=== PATIENT | female | born 1990 | race Caucasian/White ===

== ENCOUNTER 2025-01-11 10:57 | Emergency (ER) | payer MEDICAID, SELFPAY ==
[2025-01-11] VITALS (16 sets, daily range): BP systolic 88–119; BP diastolic 63–104; PULSE 91–123; RESP 15–22; TEMP 36.6–37.4; O2SAT 97–100; BMI 19.5
[2025-01-11 11:44] LABS: Hematocrit 12.0 % (37-47); Mean Corp Hgb Conc 33.3 g/dL (32-36); Mean Corpuscular Volume 94.5 fL (81-99); Mean Platelet Vol. 11.2 fl (6.2-12.0); POSITIVE COUNT YES; RBC Distribution Width CV 15.9 % (11.6-14.6); RBC Distribution Width SD 54.8 fl (35.1-43.9); Red Blood Count 1.27 M/mm3 (4.2-5.4); White Blood Count 3.4 K/mm3 (4.4-11.0)
[2025-01-11 11:53] LABS: Hemoglobin 4.0 g/dL (12.0-15.0); Platelet Count 15 K/mm3 (150-450); Scan Indicated on CBC? Y/N YES- FLAGS NOTED
--- NOTE | 2025-01-11 11:54 | EX.ED.DYSGE1 ---
HPI History of Present Illness Chief Complaint: Abn Labs Detail of Chief Complaint: Hemoglobin 4.4 platelet count 14,000 Informant: patient Onset/Context/Timing Onset: Yesterday (Blood work yesterday at facility) Context: - (Unknown) Timing: Continuous Quality: Anemia and thrombocytopenia Location: Hematologic, due to chemo for cervical cancer Current Severity: Mild Maximum Severity: Moderate (Dyspnea on exertion) Worsened by: Activity Relieved by: Nothing Associated Symptoms Associated Symptoms: Dyspnea on exertion Narrative Narrative: Patient is a 34-year-old woman. She receives her cancer treatment through . She had blood work yesterday prior to chemo. She is scheduled for chemo tomorrow. Her hemoglobin was 4.4 and her platelet count was 14,000. She denies bleeding of her gums, hematuria, black or maroon stool. She denies bruising easily. She has not noted any red dots on her lower extremity. She denies fever, chills night sweats. She denies any upper respiratory tract infectious symptoms. She denies cardiac symptoms. Her only respiratory symptom is dyspnea on exertion. Prior similar symptoms: Yes (Patient has required transfusions between treatments.) Recent Illness/Hospitalization: Yes PFSH PFS Medical History Anxiety Depression GERD (gastroesophageal reflux disease) Non-smoker Home Medications ?Medication ?Instructions ?Recorded ?Last Taken ?Type dexamethasone 4 mg tablet mg PO 01/11/25 Unknown History oxycodone 5 mg capsule 5 mg PO Q6H PRN PRN severe pain 01/11/25 Unknown History potassium chloride 20 mEq oral 20 meq PO BID #30 ea 01/11/25 Unknown Rx packet Allergy/AdvReac Type Severity Reaction Status Date / Time No Known Allergies Allergy Verified 01/11/25 11:01 Social History Smoking Status: Never smoker ROS ROS ED Constitutional Constitutional ED: Denies chills, fever(s), subjective or sweats Eyes Eyes: Denies blurry vision or change in vision Cardiovascular Cardiovascular: Denies chest pain, orthopnea, palpitations, paroxysmal nocturnal dyspnea or racing heartbeat Respiratory/Chest Respiratory/Chest: Reports dyspnea on exertion; Denies cough, dyspnea, orthopnea or paroxysmal nocturnal dyspnea Gastrointestinal Gastrointestinal: Denies abdominal pain, melena or vomiting Genitourinary Genitourinary ED: Denies hematuria Neurologic Neurologic: Denies weakness Hematologic/Lymphatic Hematologic/Lymphatic: Denies easy bruising EXAM Physical Exam Const Vital Signs: 01/11/25 10:58 01/11/25 11:51 01/11/25 13:47 Temperature 98.5 F 98.7 F Temperature Source Oral Oral Pulse Rate 123 H 108 H Respiratory Rate 16 18 Respiratory Effort Normal Short of Breath Respiratory Pattern Normal Blood Pressure 119/104 H 95/75 Blood Pressure Mean 109 81 Blood Pressure Source Blood Pressure Position Blood Pressure Location Pulse Ox 100 99 Oxygen Delivery Method Room Air 01/11/25 14:38 01/11/25 14:52 01/11/25 14:53 Temperature 99.1 F 98.6 F 99.4 F H Temperature Source Oral Oral Oral Pulse Rate 108 H 107 H 107 H Respiratory Rate 20 H 20 H 20 H Respiratory Effort Respiratory Pattern Blood Pressure 92/74 94/74 88/63 L Blood Pressure Mean 80 80 71 Blood Pressure Source Monitor Monitor Monitor Blood Pressure Position Semi-Fowlers Semi-Fowlers Right Lateral Blood Pressure Location Left Arm Right Arm Pulse Ox Oxygen Delivery Method Room Air Room Air Room Air Positive well nourished and well developed Constitutional Narrative: Patient is tachycardic with a rate of 123. Patient is very pale. General Appearance ED: well developed and pallor HEENT HEENT Narrative: Has atraumatic, cephalic. Ears normal. Nares patent. She has piercings of her nose Eyes PERRL and EOMs intact bilaterally General Eye ED: Yes pale conjunctiva; Negative for scleral icterus Neck no lymphadenopathy and no JVD Resp normal respiratory effort and clear to auscultation bilaterally Cardio regular rhythm, S1 normal heart sound, S2 normal heart sound and no murmurs Rate: tachycardic GI normal to inspection, nondistended, normoactive bowel sounds, non-tender, non-distended and no masses; Negative for hepatosplenomegaly Extremity Extremity Narrative: Patient has a few petechiae lower EXTR. Neuro oriented x3 and CN's II-XII intact bilaterally Sensorium / Orientation: alert Psych mental status grossly normal Skin no rashes or lesions noted and no wounds General Skin Exam: pallor; Negative for jaundice MDM MDM MDM Narrative Medical decision making narrative: Clinically patient has a hemoglobin less than 5 since there is no erythema crease of the palm. Will type and cross for 3 units of blood and order platelets. Lab Data Attestation: I reviewed the patient's lab results. Lab results narrative: I was informed that her hemoglobin is 4. White count is 3.4. Platelet count was low as well. When calcium was corrected for hypoalbuminemia calcium was 7.8 which is slightly below lower end of normal. Will obtain an ionized calcium. Labs: Laboratory Results - last 24 hr 01/11/25 01/11/25 11:30 13:14 WBC 3.4 L RBC 1.27 L Hgb 4.0 L* Hct 12.0 L MCV 94.5 MCH 31.5 MCHC 33.3 RDW Std Deviation 54.8 H RDW Coeff of Sally 15.9 H Plt Count 15 L* MPV 11.2 Differential Comment COMMENT Sodium 135 Potassium 3.0 L Chloride 99 Carbon Dioxide 24.1 Anion Gap 12 BUN 8 Creatinine 0.93 Estim Creat Clear Calc 66.64 Est GFR (MDRD) Non-Af 82 BUN/Creatinine Ratio 9.0 L Glucose 86 Calcium 5.8 L* Ionized Calcium 0.90 L Total Bilirubin 0.23 AST 14 ALT < 5 Alkaline Phosphatase 84 Total Protein 5.3 L Albumin 2.5 L Globulin 2.8 Albumin/Globulin Ratio 0.9 Blood Type O POSITIVE Antibody Screen NEGATIVE Crossmatch See Detail Patient states she has a history of hypokalemia and hypocalcemia. Patient was treated with p.o. potassium. Ionized calcium is still pending at as of 1559. Treatment and Re-Evaluation :: The afternoon physician was made aware of patient. He should only have to intervene if patient has a transfusion reaction. Discharge Plan Triage Chief Complaint: Abn Labs ED Provider: Nathen Piper Dx/Rx/DC Orders Clinical Impression: Symptomatic anemia, Signs and symptoms of anemia, Thrombocytopenia, Petechiae, Hx of cervical cancer, Sinus tachycardia seen on secured entrance monitor, Hypocalcemia, Hypokalemia Instructions: Blood Transfusion Adult Dc Prescriptions: New potassium chloride 20 mEq packet 20 meq PO BID Qty: 30 1RF No Action dexamethasone 4 mg tablet PO oxycodone 5 mg capsule 5 mg PO Q6H PRN PRN (Reason: severe pain) Primary Care Provider: Care Physician,No Primary Referrals: Care Physician,No Primary [Primary Care Provider, Medical] Print Language: Tajik Disposition Disposition: Home, Self Care
[2025-01-11 12:36] LABS: AST(SGOT) 14 U/L (<=31); Alanine Aminotransfer ALT/SGPT < 5 U/L (<=34); Albumin, Serum 2.5 g/dL (3.5-5.0); Alkaline Phosphatase 84 U/L (35-104); Anion Gap 12 (5-15); BUN 8 mg/dL (4-19); BUN/Creat Ratio 9.0 RATIO (10-20); Calcium,Total 5.8 mg/dL (7.6-11.0); Carbon Dioxide 24.1 mmol/L (21.0-32.0); Chloride 99 mmol/L (98-108); Estimated Creatinine Clearance 66.64 ml/min (50-250); Globulin 2.8 g/dL (2.2-4.2); Glucose 86 mg/dL (70-99); Potassium 3.0 mmol/L (3.3-5.1)
[2025-01-11] MEDS: Potassium Chloride Oral Tablet 20 MEQ 60 MEQ PO (13:43)
[2025-01-11 14:16] LABS: Ionized Calcium Order TUBE
== END 2025-01-11 19:59 | disposition home or self-care (01) ==
PROVIDERS: Emergency Provider Emergency Medicine; Visit Provider Emergency Medicine
DX: R79.9 Abnormal finding of blood chemistry, unspecified (principal); D64.9 Anemia, unspecified; Z85.41 Personal history of malignant neoplasm of cervix uteri; Z79.899 Other long term (current) drug therapy; R23.3 Spontaneous ecchymoses; R00.0 Tachycardia, unspecified; E83.51 Hypocalcemia; E87.6 Hypokalemia
CPT/HCPCS: 36430; 36591; 80053; 82330; 85027; 86850; 86900; 86901; 86920; 86965; 99283; P9016; P9035; A4216

== ENCOUNTER 2025-02-19 09:07 | Emergency (ER) | payer MEDICAID, SELFPAY ==
[2025-02-19] VITALS (10 sets, daily range): BP systolic 108–115; BP diastolic 70–98; PULSE 105–123; RESP 10–25; TEMP 36.3–37; O2SAT 85–100; BMI 20.5
--- NOTE | 2025-02-19 09:26 | RAD_ITS ---
PROCEDURE: CHEST PA AND LATERAL 02/19/2025 REASON FOR EXAM: WEAKNESS TECHNIQUE: Procedure Code: RADCXR Modality: DX Procedure: CHEST PA AND LATERAL COMPARISON: CT chest abdomen and pelvis without contrast, same day. FINDINGS: There is a large right pleural effusion with almost complete atelectasis of the upper lobe of the right lung. There is a large left pleural effusion, however, there is almost complete aeration of the upper lobe of the left lung. The heart is obscured. The upper abdominal bowel gas pattern is normal. There is a right IJ Port-A-Cath. RAD/Chest PA and Lateral IMPRESSION: Bilateral pleural effusions [id number]. Other findings as noted Reading Location: [id number]
--- NOTE | 2025-02-19 09:26 | EKG12_ITS ---
Test Reason : weakness Blood Pressure : */* mmHG Vent. Rate : 118 BPM Atrial Rate : 118 BPM P-R Int : 136 ms QRS Dur : 78 ms QT Int : 326 ms P-R-T Axes : * 68 80 degrees QTcB Int : 456 ms Sinus tachycardia Low voltage QRS Cannot rule out Inferior infarct , age undetermined Abnormal ECG Confirmed by SONDRA OSPINA, PIERRE ([id number]), proposal editor MIRIAN PAINTING ([id number]) on 02/20/2025 1:07:35 PM Referred By: Confirmed By: PIERRE AMARO MD
--- NOTE | 2025-02-19 09:35 | EX.ED.DYSGE1 ---
HPI History of Present Illness Chief Complaint: Weakness Narrative Narrative: Chief complaint and HPI: 34-year-old female with metastatic ovarian cancer on immunotherapy presents for evaluation of generalized weakness. Associated symptoms are fatigue and exertional shortness of breath. Patient follows with however is looking to switch to our oncology team at [place]. Patient was having similar symptoms several days ago in which she was seen in our emergency department. On chart review, she had pancytopenia with a hemoglobin of 4 and a platelet count of 15. She received 3 units of blood and platelets. Patient states she felt better after the infusions however symptoms have returned. She states she was taking magnesium in which she was having diarrhea for several days. No longer on magnesium and diarrhea stopped. She denies any fever, chills, chest pain, URI symptoms, nausea, vomiting, dysuria. Endorses decreased appetite. Patient finished chemotherapy approximately 5 weeks ago. She receives immunotherapy every 3 weeks. Last immunotherapy was a week ago. Review of systems: See HPI Medications: As listed on the chart Allergies: As listed on the chart PFSH: Per chart Vital signs: As listed on the chart. Reviewed. Physical exam: Gen: A&O x3, NAD, cachectic Head: Normocephalic, atraumatic Eyes: No sclera icterus, conjunctiva clear ENT: Dry mucous membranes, nose piercing Neck: Trachea midline CV: Tachycardic, regular rhythm, no murmurs, no peripheral edema, right port without cellulitis, breast implants bilaterally Resp: Lungs diminished in the bilateral bases, Right lung diminished throughout, no wheezing GI: Abd soft, minimally distended-ascites, non-tender, no r/r/g Musc: Moves all extremities, no deformity Skin: Dry, pale, no petechia Neuro: Alert, oriented, grossly intact, sensation intact Psych: Cooperative, appropriate mood and affect PFSH PFSH Medical History Anxiety Depression GERD (gastroesophageal reflux disease) Non-smoker Home Medications ?Medication ?Instructions ?Recorded ?Last Taken ?Type oxycodone 5 mg capsule 5 mg PO Q6H PRN PRN severe pain 01/11/25 Unknown History lorazepam 0.5 mg tablet 0.5 mg PO Q6H PRN anxiety 02/19/25 02/18/25 History pantoprazole 40 mg tablet,delayed 40 mg PO DAILY 02/19/25 02/18/25 History release prochlorperazine maleate 5 mg 5 mg PO DAILY 02/19/25 02/18/25 History tablet Allergy/AdvReac Type Severity Reaction Status Date / Time No Known Allergies Allergy Verified 01/11/25 11:01 Family History no significant family his Social History Smoking Status: Never smoker EXAM Physical Exam Const Vital Signs: 02/19/25 09:07 02/19/25 09:19 02/19/25 09:25 Temperature 97.7 F L 97.7 F L Temperature Source Oral Oral Pulse Rate 123 H 123 H Respiratory Rate 16 16 Respiratory Effort Short of Breath Blood Pressure 111/96 H 111/96 H Blood Pressure Mean 101 101 Pulse Ox 96 96 Oxygen Delivery Method Room Air Room Air Oxygen Flow Rate (L/min) 02/19/25 10:12 02/19/25 11:00 02/19/25 11:08 Temperature 97.7 F L 97.7 F L Temperature Source Oral Oral Pulse Rate 115 H 108 H Respiratory Rate 20 H 20 H Respiratory Effort Blood Pressure 110/98 H 108/97 H Blood Pressure Mean 102 100 Pulse Ox 92 85 100 Oxygen Delivery Method Room Air Room Air Nasal Cannula Oxygen Flow Rate (L/min) 2 02/19/25 12:00 02/19/25 12:00 Temperature 98 F Temperature Source Oral Pulse Rate 109 H Respiratory Rate 10 L Respiratory Effort Blood Pressure 115/77 Blood Pressure Mean 89 Pulse Ox 98 Oxygen Delivery Method Nasal Cannula Nasal Cannula Oxygen Flow Rate (L/min) MDM MDM MDM Narrative Medical decision making narrative: 34-year-old female with metastatic cervical cancer on immunotherapy presents for evaluation of generalized weakness. Associated symptoms are fatigue and exertional shortness of breath. Patient follows with however is looking to switch to our oncology team at [facility]. Patient was having similar symptoms several days ago in which she was seen in our emergency department. On chart review, she had pancytopenia with a hemoglobin of 4 and a platelet count of 15. She received 3 units of blood and platelets. Patient states she felt better after the infusions however symptoms have returned. Patient finished chemotherapy approximately 5 weeks ago. She receives immunotherapy every 3 weeks. Last immunotherapy was a week ago. On presentation, patient no acute distress. She is cachectic, pale, tachycardic but afebrile with normal blood pressure. Differential diagnosis includes but is not limited to anemia, thrombocytopenia, electrolyte abnormality, dehydration, UTI, pneumonia, effusion. NS bolus ordered with laboratory workup. CBC with pancytopenia. Patient has a history of this on previous labs. Leukocytosis of 3.2, hemoglobin 7.9, platelets 13. Previous platelets were 15 on 01/11 in which she received platelets. Per guidelines stable oncology patient's should receive transfusion if platelets are less than 10. However will reach out to oncology. Patient has no petechiae or bleeding reported. INR 1.3. CMP shows dehydration with hyponatremia at 130, BUN of 60, creatinine of 3.74, anion gap of 17. Patient has an GARTH as previous creatinine on 01/11 was normal. Patient receiving fluids. Her ionized calcium is low at 1.04. IV calcium gluconate ordered. Her magnesium is low at 1.4. IV magnesium sulfate ordered. No transaminitis. Patient has malnutrition with an albumin of 2.1. Her alkaline phosphatase is elevated at 211, likely secondary to her cancer. Chest x-ray was personally viewed interpreted by me, ED physician. Patient has a large pleural effusion on the right. Smaller one on the left. Awaiting radiology read. Will obtain CT chest without contrast as I cannot use contrast given patient's GARTH. Patient and family were updated of the results thus far. Patient's mother states that the patient has also had some drainage out of her old right nephrostomy tube site. I did personally evaluate the area. Skin around this area is edematous with drainage from the nephrostomy site, slightly cloudy. Site is mildly tender to palpation without erythema. Will add on CT abdomen pelvis, again not able to use contrast given GARTH. Patient not endorsing any abdominal pain. I spoke with Dr. Subramanian with oncology. Patient can be admitted to [facility] per oncology, they will see her. Platelet transfusion is not necessary unless platelets are less than 10 however procedure is needed we will need to transfuse platelets. CT abdomen pelvis shows large bilateral pleural effusions with almost complete compression atelectasis of the right lung in the lower lobe of the left lung. Large amount of ascites. Edema of the subcutaneous/mediastinal/mesenteric and retroperitoneal soft tissues. Pelvic mass of uncertain etiology. Bilateral hydronephrosis. Stephen catheter will be placed. Given that I cannot rule out infection for a cause of her hydronephrosis as she has not been able to urinate with mildly cloudy drainage from the nephrostomy sites will give prophylactic Zosyn and vancomycin. Once Stephen is placed will obtain UA and urine culture. Patient now requiring 2 L nasal cannula, suspect it is secondary to bilateral effusion however will add on blood cultures and lactic acid. Patient will warrant admission. Hospitalist roger. Given that we do not have urology on-call, recommend patient be transferred. Spoke with Dr. Asif. Patient was updated of the results and the plan thus far. She is willing to go to . States she usually goes to [place]. Her oncologist is Dr. Vásquez. Will reach out to . I spoke with oncologist Dr. Baldwin who accepted admission to the oncology floor. Patient will be transferred once able. Lactic acid unremarkable. UA pending at this time. Family had multiple questions about if the patient should be transferred to [facility]. We spoke about this. They will stick with at this time. EKG: Interpreted by me/EM physician: EKG shows sinus tachycardia without any acute ischemic changes. Heart rate 118. Impression: 1. Acute hypoxic respiratory failure requiring oxygen 2. Bilateral pleural effusion 3. GARTH with dehydration 4. Chronic pancytopenia 5. Abdominal ascites 6. Bilateral nephrolithiasis 7. Pelvic mass Lab Data Labs: Laboratory Results - last 24 hr 02/19/25 02/19/25 09:40 09:53 WBC 3.2 L RBC 2.92 L Hgb 7.9 L Hct 23.7 L MCV 81.2 MCH 27.1 MCHC 33.3 RDW Std Deviation 50.5 H RDW Coeff of Sally 17.3 H Plt Count 13 L* MPV 10.7 Immature Gran % (Auto) 0.900 Neut % (Auto) 74.8 H Lymph % (Auto) 13.1 L Pepin % (Auto) 10.3 H Eos % (Auto) 0.3 Baso % (Auto) 0.6 Absolute Neuts (auto) 2.4 Absolute Lymphs (auto) 0.42 L Nucleated RBC % 0 Diff Path Review May foll Platelet Estimate MKD DEC PT 16.5 H INR 1.3 APTT 66.4 H Sodium 130 L Potassium 3.9 Chloride 92 L Carbon Dioxide 20.5 L Anion Gap 17 H BUN 60 H Creatinine 3.74 H Estim Creat Clear Calc 17.37 L Est GFR (MDRD) Non-Af 15 L BUN/Creatinine Ratio 16.1 Glucose 99 Calcium 7.6 Ionized Calcium 1.04 L Magnesium 1.4 L Total Bilirubin 0.59 AST 19 ALT < 5 Alkaline Phosphatase 211 H Total Protein 5.4 L Albumin 2.1 L Globulin 3.3 Albumin/Globulin Ratio 0.6 L Radiography Diagnostic Testing: Clinical Impression(s) from Imaging Studies Chest X-Ray 02/19/25 09:26 IMPRESSION: Bilateral pleural effusions [id number]. Other findings as noted Reading Location: [facility] Chest/Abdomen/Pelvis CT 02/19/25 10:13 IMPRESSION: 1. Large bilateral pleural effusions with almost complete compressive atelectasis of the right lung in the lower lobe of the left lung. 2. Large amount of ascites. 3. Edema of the subcutaneous, mediastinal, mesenteric and retroperitoneal soft tissues. 4. Pelvic mass of uncertain etiology. 5. Bilateral hydronephrosis. Reading Location: [facility] Discharge Plan Triage Chief Complaint: Weakness ED Provider: Alejandro Gann Dx/Rx/DC Orders Prescriptions: No Action oxycodone 5 mg capsule 5 mg PO Q6H PRN PRN (Reason: severe pain) prochlorperazine maleate 5 mg tablet 5 mg PO DAILY lorazepam 0.5 mg tablet 0.5 mg PO Q6H PRN (Reason: anxiety) pantoprazole 40 mg tablet,delayed release (DR/EC) 40 mg PO DAILY Primary Care Provider: Care Physician,No Primary Referrals: Care Physician,No Primary [Primary Care Provider, Medical] Print Language: Yemeni
[2025-02-19 09:48] LABS: Hematocrit 23.7 % (37-47); Hemoglobin 7.9 g/dL (12.0-15.0); Immature Granulocytes Count 0.030 X10^3/uL (0.0-0.0); Mean Corp Hgb Conc 33.3 g/dL (32-36); Mean Corpuscular Volume 81.2 fL (81-99); Mean Platelet Vol. 10.7 fl (6.2-12.0); NRBC Flagged by Analyzer 0 % (0-5); POSITIVE COUNT YES; POSITIVE DIFFERENTIAL YES; POSITIVE MORPHOLOGY YES; RBC Distribution Width CV 17.3 % (11.6-14.6); RBC Distribution Width SD 50.5 fl (35.1-43.9); Red Blood Count 2.92 M/mm3 (4.2-5.4); White Blood Count 3.2 K/mm3 (4.4-11.0)
[2025-02-19] MEDS: 0.9% Normal Saline (1000mL) 1,000 ML 1000 ML IV (09:50)
[2025-02-19 09:51] LABS: Platelet Count 13 K/mm3 (150-450)
[2025-02-19 09:54] LABS: Prothrombin Time (Protime)PT. 16.5 SECONDS (11.7-14.9)
[2025-02-19 09:55] LABS: Partial Thromboplast Time 66.4 Seconds (24.1-36.2)
[2025-02-19 10:04] LABS: AST(SGOT) 19 U/L (<=31); Alanine Aminotransfer ALT/SGPT < 5 U/L (<=34); Albumin, Serum 2.1 g/dL (3.5-5.0); Alkaline Phosphatase 211 U/L (35-104); Anion Gap 17 (5-15); BUN 60 mg/dL (4-19); BUN/Creat Ratio 16.1 RATIO (10-20); Calcium,Total 7.6 mg/dL (7.6-11.0); Carbon Dioxide 20.5 mmol/L (21.0-32.0); Chloride 92 mmol/L (98-108); Estimated Creatinine Clearance 17.37 ml/min (50-250); Globulin 3.3 g/dL (2.2-4.2); Glucose 99 mg/dL (70-99); Magnesium 1.4 mg/dL (1.5-2.2); Potassium 3.9 mmol/L (3.3-5.1)
--- NOTE | 2025-02-19 10:13 | CT_ITS ---
PROCEDURE: CT CHEST, ABD, PELVIS WO CONT 02/19/2025 REASON FOR EXAM: HISTORY OF METASTATIC OVARIAN CANCER, SOB TECHNIQUE: Chest, abdomen and pelvis CT without intravenous contrast. Coronal and Sagittal reconstruction series were provided. One or more dose reduction techniques were used (e.g., Automated exposure control, adjustment of the mA and/or kV according to patient size, use of iterative reconstruction technique. RADIATION DOSE SUMMARY: CTDlvol: 18.49 mGy DLP: 878.80 mGycm COMPARISON: None FINDINGS: CT CHEST: Lower neck:Thyroid gland is normal. There is no supraclavicular lymphadenopathy. Mediastinum:Mediastinum is primarily of soft tissue density subtle lymphadenopathy not excluded. Heart and Aorta:The heart size is normal. There is a small pericardial effusion. There is no significant calcific vascular disease of the coronary arteries or thoracic aorta evident. Esophagus:Normal. Chest wall:There is significant edema of the soft tissues of the chest wall.. There are bilateral breast prostheses. There is no significant axillary lymphadenopathy. There is a chemotherapy port in the right upper chest wall with the tip in the superior vena cava. There are no significant bony abnormalities of the chest. Lungs, airways and pleura: There is a large right pleural effusion with almost complete compressive atelectasis of the right lung. There is a large left pleural effusion with significant compressive atelectasis of the lower lobe of the left lung. The upper lobe of the left lung is predominantly aerated. CT ABDOMEN / PELVIS: Noncontrast technique limits evaluation of the abdominal and pelvic viscera. Liver: Normal size. No mass. Gallbladder: Diffuse wall thickening. Spleen: Normal size. Pancreas: Normal size without evidence of mass surrounding inflammation or ductal dilation. Adrenals: There is enlargement of both adrenal glands of indeterminate etiology. Kidneys: There is bilateral hydronephrosis. Bladder: The bladder wall is thickened. Reproductive Organs: There is a mass in the area of the uterus. Bowel: The stomach is distended. There is no bowel obstruction. Appendix: Not identified. Lymph nodes: There is no significant adenopathy identified. Vasculature: No significant calcific vascular disease. Peritoneum / Retroperitoneum: There is a large amount of ascites. There is diffuse subcutaneous and mesenteric and retroperitoneal edema. Bones: Normal. CT/CT Chest, Abd, Pelvis WO Cont IMPRESSION: 1. Large bilateral pleural effusions with almost complete compressive atelecta sis of the right lung in the lower lobe of the left lung. 2. Large amount of ascites. 3. Edema of the subcutaneous, mediastinal, mesenteric and retroperitoneal soft tissues. 4. Pelvic mass of uncertain etiology. 5. Bilateral hydronephrosis. Reading Location: [id number]
[2025-02-19 10:14] LABS: Differential Indicated SCAN CRITERIA MET
--- OUTSIDE RECORDS SUMMARY | 2025-02-19 10:19 | XMS RPT_ITS | CCD ---
Author Organization [facility] Care Team Providers Care Neon Light Installer Name Role Phone Thalia OSPINA, MS, Charan Huizar Unavailable [phone] PHYSICIAN, NONE Primary Care Physician Unavailab Bel Rawls Unavailable Unav ailable Generic Provider , No Assigned Pcp Primary Car e Provider Unavailable David Arango MD Unavailable [phone] Nathen Piper Attending Unavailable Care Physician, No Primary Primary Care Unava iljeferson Piper MD, Dr. Sena Attending Physician [phone] Dr. Nathen Piper MD Emergency Department Physician Care Physician, No Primary Primary Care Physicia n Unavailable CARMINA DUMONT Attending Unavailable THALIA, CHARAN A Referring Unavailable CARMINA DUMONT Attending Unavailable PHYSICIAN, NONE Primary Care Unavailable SEJAL HURST DO Attending Unavailable [facility] Unavailable Unavaila MARGARITA Jeter Attending Unavailable JENKINS, CHARAN A Attending Unavailable JENKINS, CHARAN A Referring Unavailable JENKINS, CHARAN A Referring Unavailable JENKINS, CHARAN A Referring Unavailable JENKINS, CHARAN A Referring Unavailable JENKINS, CHARAN A Attending Unavailable JENKINS, CHARAN A Referring Unavailable JENKINS, CHARAN A Attending Unavailable JENKINS, CHARAN A Referring Unavailable JENKINS, CHARAN A Referring Unavailable JENKINS, CHARAN A Referring Unavailable Medications Current Medications Medication Drug Class(es) Dates Sig (Normalized) Sig (Original) dexamethasone 4 mg oral tablet (6 sources) Corticosteroid Start: 01-26-2025 take 2 tablets by mouth once daily dexAMETHasone (Decadron) 4 mg tablet Indications: Malignant neoplasm of exocervix (Multi) Take 2 tablets (8 mg) by mouth once daily. Start the day after chemotherapy. 6 tablet 1 01/26/2025 Active Start: 01-11-2025 Start: 12-29-2024 take 2 tablets by mo ut once daily dexAMETHasone (Decadron) 4 mg tablet Indications: Malignant neoplasm of exocervix (Multi) Take 2 tablets (8 mg) by mouth once daily for 3 days. Start the day after chemotherapy. 6 tablet 1 12/29/2024 Active LORazepam 0.5 mg oral tablet (6 sources) Benzodiazepine Start: 01-26-2025 take 1 tablet by mouth every six hours for anxiety LORazepam (Ativan) 0.5 mg tablet Indications: Malignant neoplasm of exocervix (Multi) Take 1 tablet (0.5 mg) by mouth every 6 hours if needed for anxiety. 30 tablet 5 01/26/2025 Active take 1 tablet by kay every six hours as needed LORazepam (Ativan) 0.5 mg tablet Take 1 tablet (0.5 mg) by mouth every 6 hours if needed for anxiety. Active oxyCODONE hydrochloride 5 mg oral capsule (8 sources) Opioid Agonist Start: 01-03-2025 End: 01-19-2025 take 1 capsule by mouth every six hours for pain oxyCODONE (Oxy-IR) 5 mg immediate release capsule Indications: Malignant neoplasm of exocervix (Multi) , Cancer related pain Take 1 capsule (5 mg) by mouth every 6 hours if needed for severe pain (7 - 10). 60 capsule 01/19/2025 Active oxyCODONE (Oxy-I R) 5 mg immediate release capsule Take by mouth. Active pantoprazole 40 mg delayed release oral tablet (6 sources) Proton Pump Inhibitor Start: 01-11-2025 take 1 tablet by mouth once daily before mealtime pantoprazole (ProtoNix) 40 mg EC tablet Indications: Gastroesophageal reflux disease, unspecified whether esophagitis present Take 1 tablet (40 mg) by mouth once daily in the morning. Take before meals. Do not crush, chew, or split. 90 tablet 3 01/11/2025 Active take 1 tablet by kay once daily before mealtime pantoprazole (ProtoNix) 40 mg EC tablet Take 1 tablet (40 mg) by mouth once daily in the morning. Take before meals. Do not crush, chew, or split. Active prochlorperazine 5 mg oral tablet (2 sources) Phenothiazine Start: 01-26-2025 End: 02-02-2025 take 1 tablet by mouth every six hours for nausea prochlorperazine (Compazine) 5 mg tablet Indications: Malignant neoplasm of exocervix (Multi) Take 1 tablet (5 mg) by mouth every 6 hours if needed for nausea or vomiting for up to 7 days. 30 tablet 01/26/2025 02/02/2025 Active sulfamethoxazole 800 mg / trimethoprim 160 mg oral tablet (7 sources) Dihydrofolate Reductase Inhibitor Antibacterial, Sulfonamide Antimicrobial Start: 01-17-2025 End: 01-30-2025 take 1 tablet by mouth twice daily sulfamethoxazole-tri methoprim (Bactrim DS) 800-160 mg tablet Indications: Hydronephrosis due to obstruction of ureter Take 1 tablet by mouth 2 times a day. 3 tablet 01/30/2025 Active Completed/Discontinued Medications Medication Drug Class(es) Dates Sig (Normalized) Sig (Original) acetaminophen 325 mg oral tablet (1 source) Start: 02-03-2025 End: 02-03-2025 take 650 mg by mouth once as needed for pain 650 mg, oral, Once, On Thu02/03/25 at 1125, For 1 dose, If ordered PRN for pain, nurse is permitted to administer this medication for higher pain scores based on patient preference? Yes diphenhydrAMINE (1 source) Histamine-1 Receptor Antagonist Start: 02-03-2025 End: 02-03-2025 25 mg, intravenous, Once, On Thu02/03/25 at 1125, For 1 dose, If giving IV push, max rate of 25 mg/min. heparin (1 source) Unfractionated Heparin, Anti-coagulant Start: 02-03-2025 End: 02-03-2025 500 Units (5 mL), intravenous, Once, On Thu02/03/25 at 1905, For 1 dose 50 ml magnesium sulfate 40 mg/ml injection (1 source) Start: 02-03-2025 End: 02-03-2025 2 g, intravenous, at 25 mL/hr, Administer over 2 Hours, Once, On Thu02/03/25 at 1335, For 1 dose 100 ml potassium chloride 0.2 meq/ml injection (3 sources) Start: 02-03-2025 End: 11-07-2025 take 20 mEq intravenously every two hours 20 mEq, intravenous, at 50 mL/hr, Administer over 2 Hours, Every 2 hours, First dose on Thu02/03/25 at 1205, For 2 doses, Total dose is 40 mEq via peripheral line. Start: 02-03-2025 End: 02-03-2025 take 1 [oz_av] by mouth once 40 mEq, oral, Once, On i 02/03/25 at 1205, For 1 dose, Dissolve each packet in 4 ounces of water = 5 mEq per 1 oz fluid. Start: 01-11-2025 take 20 mEq by mouth twice moiz ly Problems Active Problems Problem Classification Problem Date Documented Date Episodic/Chronic Cancer of cervix (13 sources) Malignant neoplasm of exocervix; Translations: [Malignant neoplasm of exocervix] Onset: 12-22-2024 12-22-2024 Chronic Cancer of cervix (1 source) History of malignant neoplasm of cervix; Translations: [Personal history of malignant neoplasm of cervix uteri] 01-19-2025 Episodic Cardiac dysrhythmias (1 source) ECG: sinus tachycardia; Translations: [Tachycardia, unspecified] 01-19-2025 Episodic Coagulation and hemorrhagic disorders (12 sources) Thrombocytopenic disorder; Translations: [Thrombocytopenia, unspecified] Onset: 01-19-2025 01-19-2025 Chronic Coagulation and hemorrhagic disorders (1 source) Petechiae; Translations: [Spontaneous ecchymoses] 01-19-2025 Episodic Deficiency and other anemia (8 sources) Anemia in neoplastic disease; Translations: [Anemia in neoplastic disease] Onset: 01-19-2025 01-19-2025 Chronic Deficiency and other anemia (1 source) Anemia in neoplastic disease; Translations: [Anemia in neoplastic disease] Onset: 01-19-2025 Chronic Deficiency and other anemia (2 sources) Anemia; Translations: [Anemia, unspecified] 01-19-2025 Episodic Deficiency and other anemia (2 sources) Anemia, unspecified; Translations: [Anemia, unspecified] Onset: 02-03-2025 Episodic E Codes: Adverse effects of medical drugs (2 sources) Adverse effect of antineoplastic and immunosuppressive drugs, initial encounter; Translations: [Adverse effect of antineoplastic and immunosuppressive drugs, initial encounter] Onset: 12-22-2024 Episodic Fluid and electrolyte disorders (1 source) Hypokalemia; Translations: [Hypokalemia] 01-19-2025 Episodic Maintenance chemotherapy; radiotherapy (9 sources) Patient encounter status; Translations: [Encounter for antineoplastic chemotherapy] Onset: 01-19-2025 01-19-2025 Chronic Nausea and vomiting (10 sources) Nausea; Translations: [Nausea] Onset: 12-22-2024 12-22-2024 Episodic Other diseases of kidney and ureters (9 sources) Hydronephrosis; Translations: [Other hydronephrosis] Onset: 12-22-2024 12-22-2024 Episodic Other diseases of kidney and ureters (4 sources) Hydronephrosis with ureteral stricture, not elsewhere classified; Translations: [Hydronephrosis] Onset: 01-17-2025 01-17-2025 Episodic Other diseases of kidney and ureters (1 source) Other hydronephrosis; Translations: [Other hydronephrosis] Onset: 12-22-2024 Episodic Other nervous system disorders (8 sources) Neuropathy caused by chemical substance; Translations: [Drug-induced polyneuropathy] Onset: 12-22-2024 12-22-2024 Chronic Other nervous system disorders (1 source) Pain due to neoplastic disease; Translations: [Neoplasm related pain (acute) (chronic)] 01-19-2025 Chronic Other nervous system disorders (2 sources) Drug-induced polyneuropathy; 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)] Onset: 12-22-2024 Chronic Other nervous system disorders (2 sources) Neoplasm related pain (acute) (chronic); Translations: [Neoplasm related pain (acute) (chronic)] Onset: 01-19-2025 Chronic Other nutritional; endocrine; and metabolic disorders (1 source) Hypocalcemia; Translations: [Hypocalcemia] 01-19-2025 Chronic Other screening for suspected conditions (not mental disorders or infectious disease) (2 sources) Abnormal finding of blood chemistry, unspecified; Translations: [Abnormal finding of blood chemistry, unspecified] Onset: 01-11-2025 Episodic Residual codes; unclassified (1 source) Sign; Translations: [Other general symptoms and signs] 01-19-2025 Episodic Residual codes; unclassified (1 source) Procedure and treatment not carried out due to patient leaving prior to being seen by health care provider; Translations: [Procedure and treatment not carried out due to patient leaving prior to being seen by health care provider] Onset: 01-11-2025 Episodic Unclassified (3 sources) Hydronephrosis due to obstruction of ureter 01-23-2025 Past or Other Problems Problem Classification Problem Date Documented Da te Episodic/Chronic Mood disorders (5 sources) Mood disorders Onset: 01-17-2025 01-17-2025 Unclassified (5 sources) Onset: 01-17-2025 01-17-2025 Results Test Name Value Interpretation Reference Range Facility Proteinon 02-08-2025 Protein (24H U) [Mass/Vol] 231 mg/dL High - [facility] Comment on above: Performed By: #### 2 1482-5 #### RADU Sánchez ([id number]) XUAN Alex ([id number]) [facility] ([id number]) [address] [facility] ([facility]) [id number] [place] [address] 76851 Protein (24H U) [Mass/Vol]on 02-08-2025 Collection duration (Unsp spec) <23 Normal [facility] Comment on above: Performed By: #### 2 1482-5 #### RADU Sánchez ([id number]) XUAN Alex ([id number]) [facility] ([id number]) [address] [facility] ([facility]) [id number] [place] [address] 33588 Creatinine (24H U) [Mass/Time] Normal [facility] Comment on above: Result Comment: Mary ection period significantly less than 24 hours. Unable to calculate. Performed By: #### 2 1482-5 #### RADU Sánchez ([id number]) XUAN Alex ([id number]) [facility] ([id number]) [address] [place] [id number] [facility] ([facility]) [address] [place] [address] 56963 Creatinine (U) [Mass/Vol] 70.4 mg/dL Normal 20.0-320.0 [facility] Comment on above: Performed By: #### 2 1482-5 #### RADU Sánchez ([id number]) XUAN Alex ([id number]) [facility] ([id number]) [address] [place] [address] [facility] ([facility]) [address] [place] [address] 45540 Specimen volume Unsp time (U) 200 mL Normal [facility] Comment on above: Performed By: #### 2 1482-5 #### RADU Sánchez ([id number]) XUAN Alex ([id number]) [facility] ([id number]) [address] [place] [address] [facility] ([facility]) [address] [place], [place] [address] TOTAL PROTEIN (MG/24HR) IN 24 HOUR URINE Normal [facility] Comment on above: Result Comment: Mary ection period significantly less than 24 hours. Unable to calculate. Performed By: #### 2 1482-5 #### RADU Sánchez ([id number]) XUAN Alex ([id number]) [facility] ([id number]) [address] [place] [address] [facility] ([facility]) [address] [place], [place] [address] CBC W Auto Differential pane l (Bld)on 02-07-2025 Basophils (Bld) [#/Vol] 0.00 x10*3/uL Normal 0.00-0.10 [facility] Comment on above: Performed By: #### 2 1482-5 #### RADU Sánchez ([id number]) XUAN Alex ([id number]) [facility] ([id number]) [address] [place] [address] [facility] ([facility]) [address] [place], [place] [address] Basophils/100 WBC (Bld) 0.0 % Normal 0.0-2.0 [facility] Comment on above: Performed By: #### 2 1482-5 #### RADU Sánchez ([id number]) XUAN Alex ([id number]) [facility] ([id number]) [address] [place] [address] [facility] ([facility]) [address] [place] [address] 03725 Eosinophils (Bld) [#/Vol] 0.00 x10*3/uL Normal 0.00-0.70 [facility] Comment on above: Performed By: #### 2 1482-5 #### RADU Sánchez ([id number]) XUAN Alex ([id number]) [facility] ([id number]) [address] [place] [address] [facility] ([facility]) [address] [place] [address] 99670 Eosinophils/100 WBC (Bld) 0.0 % Normal 0.0-6.0 [facility] Comment on above: Performed By: #### 2 1482-5 #### RADU Sánchez ([id number]) XUAN Alex ([id number]) [facility] ([id number]) [address] [place], [place] [address] [facility] ([facility]) [address] [place] [address] 73858 Erythrocyte distribution width (RBC) [Ratio] 17.3 % High 11.5-14.5 [facility] Comment on above: Performed By: #### 2 1482-5 #### RADU Sánchez ([id number]) XUAN Alex ([id number]) [facility] ([id number]) [address] [place] [address] [facility] ([facility]) [address] [place] [address] 16102 Hematocrit (Bld) [Volume fraction] 28.9 % Low 36.0-46.0 [facility] Comment on above: Performed By: #### 2 1482-5 #### RADU Sánchez ([id number]) XUAN Alex ([id number]) [facility] ([id number]) [address] [place] [address] [facility] ([facility]) [address] [place] [address] 96718 Hemoglobin (Bld) [Mass/Vol] 9.8 g/dL Low 12.0-16.0 [facility] Comment on above: Performed By: #### 2 1482-5 #### RADU Sánchez ([id number]) XUAN Alex ([id number]) [facility] ([id number]) [address] [place] [address] [facility] ([facility]) [id number] [place] [address] 20371 Immature granulocytes (Bld) [#/Vol] 0.01 x10*3/uL Normal 0.00-0.70 [facility] Comment on above: Performed By: #### 2 1482-5 #### RADU Sánchez ([id number]) XUAN Alex ([id number]) [facility] ([id number]) [address] [place] [address] [facility] ([facility]) [address] [place] [address] 87920 Immature granulocytes/100 WBC (Bld) 0.3 % Normal 0.0-0.9 [facility] Comment on above: Result Comment: Misty ture Granulocyte Count (IG) includes promyelocytes, myelocytes and metamyelocytes but does not include bands. Percent differential counts (%) should be interpreted in the context of the absolute cell counts (cells/UL). Performed By: #### 2 1482-5 #### RADU Sánchez ([id number]) XUAN Alex ([id number]) [facility] ([id number]) [address] [place] [address] [facility] ([facility]) [id number] [place] [address] 86203 Lymphocytes (Bld) [#/Vol] 0.57 x10*3/uL Low 1.20-4.80 [facility] Comment on above: Performed By: #### 2 1482-5 #### RADU Sánchez ([id number]) XUAN Alex ([id number]) [facility] ([id number]) [address] [place] [address] [facility] ([facility]) [id number] [place] [address] 11322 Lymphocytes/100 WBC (Bld) 15.3 % Normal 13.0-44.0 [facility] Comment on above: Performed By: #### 2 1482-5 #### RADU Sánchez ([id number]) XUAN Alex ([id number]) [facility] ([id number]) [address] [place] [address] [facility] ([facility]) [id number] [place] [address] 75137 MCH (RBC) [Entitic mass] 28.2 pg Normal 26.0-34.0 [facility] Comment on above: Performed By: #### 2 1482-5 #### RADU Sánchez ([id number]) XUAN Alex ([id number]) [facility] ([id number]) [address] [place], [place] [address] [facility] ([facility]) [address] [place] [address] 80140 MCHC (RBC) [Mass/Vol] 33.9 g/dL Normal 32.0-36.0 [facility] Comment on above: Performed By: #### 2 1482-5 #### RADU Sánchez ([id number]) XUAN Alex ([id number]) [facility] ([id number]) [address] [place], [place] [address] [facility] ([facility]) [id number] [place] [address] 19455 MCV (RBC) [Entitic vol] 83 fL Normal 80-100 [facility] Comment on above: Performed By: #### 2 1482-5 #### RADU Sánchez ([id number]) XUAN Alex ([id number]) [facility] ([id number]) [address] [place] [address] [facility] ([facility]) [address] [place] [address] 21539 Monocytes (Bld) [#/Vol] 0.21 x10*3/uL Normal 0.10-1.00 [facility] Comment on above: Performed By: #### 2 1482-5 #### RADU Sánchez ([id number]) XUAN AVELARER L ([id number]) [facility] ([id number]) [address] [place] [address] [facility] ([facility]) [address] [place] [address] Monocytes/100 WBC (Bld) 5.6 % Normal 2.0-10.0 [facility] Comment on above: Performed By: #### 2 1482-5 #### RADU Sánchez ([id number]) XUAN AVELARER L ([id number]) [facility] ([id number]) [address] [place] [address] [facility] ([facility]) [id number] [place] [address] 94308 Neutrophils (Bld) [#/Vol] 2.93 x10*3/uL Normal 1.20-7.70 [facility] Comment on above: Result Comment: Perc ent differential counts (%) should be interpreted in the context of the absolute cell counts (cells/uL). Performed By: #### 2 1482-5 #### RADU Sánchez ([id number]) XUAN Alex ([id number]) [facility] ([id number]) [address] [place] [address] [facility] ([facility]) [address] [place] [address] Neutrophils/100 WBC (Bld) 78.8 % Normal 40.0-80.0 [facility] Comment on above: Performed By: #### 2 1482-5 #### RADU Sánchez ([id number]) XUAN NORIEGAMOTZER L ([id number]) [facility] ([id number]) [address] [place] [address] [facility] ([facility]) [id number] [place] [address] 15779 Platelets (Bld) [#/Vol] 4 x10*3/uL Critically low 150-450 [facility] Comment on above: Performed By: #### 2 1482-5 #### RADU Sánchez ([id number]) XUAN Alex ([id number]) [facility] ([id number]) [address] [facility] ([facility]) [address] [place], [place] [address] RBC (Bld) [#/Vol] 3.48 x10*6/uL Low 4.00-5.20 [facility] Comment on above: Performed By: #### 2 1482-5 #### RADU Sánchez ([id number]) XUAN Alxe ([id number]) [facility] ([id number]) [address] [facility] ([facility]) [address] [place], [place] [address] WBC (Bld) [#/Vol] 3.7 x10*3/uL Low 4.4-11.3 [facility] Comment on above: Performed By: #### 2 1482-5 #### RADU Sánchez ([id number]) XUAN Alex ([id number]) [facility] ([id number]) [address] [place] [address] [facility] ([facility]) [address] [place] [address] Cancer Ag 125on 02-07-2025 Cancer Ag 125 Qn 124.9 [arb'U]/mL High 0.0-30.2 [facility] Comment on above: Order Comment: CA 12 5 testing is performed by chemiluminescent immunoassay using the [employer]. Values obtained with different analytic methods cannot be used interchangeably.Serum CA 125 measurement is intended for use as an aid in monitoring patients previously treated for ovarian cancer. This assay is not intended for screening or diagnosis of cancer in the general population. The results must not be used as the sole means for clinical diagnosis or patient management decisions. Performed By: #### 2 1482-5 #### RADU Sánchez ([id number]) XUAN Alex ([id number]) [facility] ([id number]) [address] [place] [address] [facility] ([facility]) [address] [place] [address] Comprehensive metabolic 2000 panelon 02-07-2025 Albumin BCP dye [Mass/Vol] 2.6 g/dL Low 3.4-5.0 [facility] Comment on above: Performed By: #### 2 1482-5 #### RADU Sánchez ([id number]) XUAN Alex ([id number]) [facility] ([id number]) [address] [facility] ([facility]) [address] [place], [place] [address] ALP [Catalytic activity/Vol] 113 U/L High 33-110 [facility] Comment on above: Performed By: #### 2 1482-5 #### RADU Sánchez ([id number]) XUAN Alex ([id number]) [facility] ([id number]) [address] [facility] ([facility]) [address] [place], [place] [address] ALT With P-5'-P [Catalytic activity/Vol] 3 U/L Low 7-45 [facility] Comment on above: Result Comment: Jaquelin ents treated with Sulfasalazine may generate falsely decreased results for ALT. Performed By: #### 2 1482-5 #### RADU Sánchez ([id number]) XUAN Alex ([id number]) [facility] ([id number]) [address] [place] [address] [facility] ([facility]) [address] [place] [address] 69865 Anion gap [Moles/Vol] 16 mmol/L Normal 10-20 [facility] Comment on above: Performed By: #### 2 1482-5 #### RADU Sánchez ([id number]) XUAN Alex ([id number]) [facility] ([id number]) [address] [place] [id number] [facility] ([facility]) [id number] [place] [address] 20277 AST With P-5'-P [Catalytic activity/Vol] 9 U/L Normal 9-39 [facility] Comment on above: Performed By: #### 2 1482-5 #### RADU Sánchez ([id number]) XUAN Alex ([id number]) [facility] ([id number]) [address] [place] [address] [facility] ([facility]) [id number] [place] [address] 65582 Bilirubin [Mass/Vol] 0.6 mg/dL Normal 0.0-1.2 [facility] Comment on above: Performed By: #### 2 1482-5 #### RADU Sánchez ([id number]) XUAN Alex ([id number]) [facility] ([id number]) [address] [place] [address] [facility] ([facility]) [address] [place] [address] 79319 Calcium [Mass/Vol] 7.1 mg/dL Low 8.6-10.3 [facility] Comment on above: Performed By: #### 2 1482-5 #### RADU Sánchez ([id number]) XUAN Alex ([id number]) [facility] ([id number]) [address] [place] [address] [facility] ([facility]) [address] [place] [address] 57343 Chloride [Moles/Vol] 95 mmol/L Low 98-107 [facility] Comment on above: Performed By: #### 2 1482-5 #### RADU Sánchez ([id number]) XUAN Alex ([id number]) [facility] ([id number]) [address] [place] [address] [facility] ([facility]) [id number] [place] [address] 57660 CO2 [Moles/Vol] 26 mmol/L Normal 21-32 [facility] Comment on above: Result Comment: Bica rbonate results may be falsely elevated when Lactate Dehydrogenase (LDH) concentrations exceed 2,000 U/L due to a temporary reagent manufacturing issue. If significantly elevated LDH levels are suspected, interpret bicarbonate results with caution, correlate with the patient's clinical status, and consider confirming CO2 values using a blood gas analyzer. Performed By: #### 2 1482-5 #### RADU Sánchez ([id number]) XUAN Alex ([id number]) [facility] ([id number]) [address] [place] [address] [facility] ([facility]) [address] [place] [address] Creatinine [Mass/Vol] 1.50 mg/dL High 0.50-1.05 [facility] Comment on above: Performed By: #### 2 1482-5 #### RADU Sánchez ([id number]) XUAN Alex ([id number]) [facility] ([id number]) [address] [place] [phone] [facility] ([facility]) [id number] [place] [address] Glomerular filtration rate 46 mL/min/1.73m*2 Low >60 [facility] Comment on above: Result Comment: Calc ulations of estimated GFR are performed using the 2020 CKD-EPI Study Refit equation without the race variable for the IDMS-Traceable creatinine methods. https://jasn.asnjournals.org/content/early/ASN.2020 682547 Performed By: #### 2 1482-5 #### RADU Sánchez ([id number]) XUAN Alex ([id number]) [facility] ([id number]) [address] [place] [phone] [facility] ([facility]) [address] [place] [address] Glucose [Mass/Vol] 91 mg/dL Normal 74-99 [facility] Comment on above: Performed By: #### 2 1482-5 #### RADU Sánchez ([id number]) XUAN Alex ([id number]) [facility] ([id number]) [address] [place] [address] [facility] ([facility]) [address] [place] [address] Potassium [Moles/Vol] 3.3 mmol/L Low 3.5-5.3 [facility] Comment on above: Performed By: #### 2 1482-5 #### RADU Sánchez ([id number]) XUAN Alex ([id number]) [facility] ([id number]) [address] [place] [address] [facility] ([facility]) [address] [place] [address] Protein [Mass/Vol] 5.7 g/dL Low 6.4-8.2 [facility] Comment on above: Performed By: #### 2 1482-5 #### RADU Sánchez ([id number]) XUAN Alex ([id number]) [facility] ([id number]) [address] [place] [phone] [facility] ([facility]) [address] [place] [address] Sodium [Moles/Vol] 134 mmol/L Low 136-145 [facility] Comment on above: Performed By: #### 2 1482-5 #### RADU Sánchez ([id number]) XUAN Alex ([id number]) [facility] ([id number]) [address] [place] [address] [facility] ([facility]) [address] [place] [address] Urea nitrogen [Mass/Vol] 32 mg/dL High 6-23 [facility] Comment on above: Performed By: #### 2 1482-5 #### RADU Sánchez ([id number]) XUAN Alex ([id number]) [facility] ([id number]) [address] [place] [address] [facility] ([facility]) [address] [place] [address] Magnesiumon 02-07-2025 Magnesium [Mass/Vol] 1.02 mg/dL Low 1.60-2.40 [facility] Comment on above: Performed By: #### 2 1482-5 #### RADU Sánchez ([id number]) XUAN Alex ([id number]) [facility] ([id number]) [address] [facility] ([facility]) [address] [place] [address] Blood type and Indirect anti body screen panel (Bld)on 02-03-2025 ABO group Nom (Bld) O [facility] Blood group antibody screen Ql Negative [facility] D Ag Ql (Bld) Positive [facility] ABO group Nom (Bld) O [facility] Comment on above: Performed By: #### 3 4532-2 #### KHADIJAH FARLEY ([id number]) [facility] [address] [place] [address] Blood group antibody screen Ql Negative [facility] Comment on above: Performed By: #### 3 4532-2 #### KHADIJAH FARLEY ([id number]) [facility] [address] [place] [address] D Ag Ql (Bld) Positive [facility] Comment on above: Performed By: #### 3 4532-2 #### KHADIJAH FARLEY ([id number]) [facility] ([facility]) [address] [place] [address] ABO group Nom (Bld) O [facility] Comment on above: Order Comment: Speci men for compatibility testing requires full first and last name, MRN, , date, time of collection, and lay out former/payment collector's signature on tube(s) or it will be rejected. Please collect 1 lavender top-KEDTA OR 1 pink top-KEDTA and sign, date and time with the patient's full first and last name, MRN and . Performed By: #### 2 1482-5 #### RAUD Sánchez ([id number]) XUAN Alex ([id number]) [facility] ([id number]) [address] [place] [address] LAB ([facility]) [address] [place], [place] [id number] Blood group antibody screen Ql Negative [facility] Comment on above: Order Comment: Speci men for compatibility testing requires full first and last name, MRN, , date, time of collection, and lay out former/payment collector's signature on tube(s) or it will be rejected. Please collect 1 lavender top-KEDTA OR 1 pink top-KEDTA and sign, date and time with the patient's full first and last name, MRN and . Performed By: #### 2 1482-5 #### RADU Sánchez ([id number]) XUAN Alex ([id number]) [facility] ([id number]) [address] [facility] ([facility]) [address] [place] [address] D Ag Ql (Bld) Positive [facility] Comment on above: Order Comment: Speci men for compatibility testing requires full first and last name, MRN, , date, time of collection, and lay out former/payment collector's signature on tube(s) or it will be rejected. Please collect 1 lavender top-KEDTA OR 1 pink top-KEDTA and sign, date and time with the patient's full first and last name, MRN and . Performed By: #### 2 1482-5 #### RADU Sánchez ([id number]) XUAN Alex ([id number]) [facility] ([id number]) [address] [facility] ([facility]) [address] [place] [address] CBC W Auto Differential pane l (Bld)on 02-03-2025 Basophils (Bld) [#/Vol] 0.00 x10*3/uL Normal 0.00-0.10 [facility] Comment on above: Result Comment: Auto mated WBC differential has been confirmed by manual smear review Performed By: #### 5 7021-8 #### RADU Sánchez ([id number]) [facility] ([id number]) [address] [place] [address] Basophils/100 WBC (Bld) 0.0 % Normal 0.0-2.0 [facility] Comment on above: Performed By: #### 5 7021-8 #### RADU Sánchez ([id number]) [facility] ([id number]) [address] [place] [address] Eosinophils (Bld) [#/Vol] 0.00 x10*3/uL Normal 0.00-0.70 [facility] Comment on above: Performed By: #### 5 7021-8 #### RADU Sánchez ([id number]) [facility] ([id number]) [address] [place] [address] Eosinophils/100 WBC (Bld) 0.0 % Normal 0.0-6.0 [facility] Comment on above: Performed By: #### 5 7021-8 #### RADU Sánchez ([id number]) [facility] ([id number]) [address] [place] [address] Erythrocyte distribution width (RBC) [Ratio] 14.8 % High 11.5-14.5 [facility] Comment on above: Performed By: #### 5 7021-8 #### RADU Sánchez ([id number]) [facility] ([id number]) [address] [place], [place] [address] Hematocrit (Bld) [Volume fraction] 15.7 % Low 36.0-46.0 [facility] Comment on above: Performed By: #### 5 7021-8 #### RADU Sánchez ([id number]) [facility] ([id number]) [address] [place] [address] Hemoglobin (Bld) [Mass/Vol] 5.3 g/dL Critically low 12.0-16.0 [facility] Comment on above: Performed By: #### 5 7021-8 #### RADU Sánchez ([id number]) [facility] ([id number]) [address] [place] [address] Immature granulocytes (Bld) [#/Vol] 0.02 x10*3/uL Normal 0.00-0.70 [facility] Comment on above: Performed By: #### 5 7021-8 #### RADU Sánchez ([id number]) [facility] ([id number]) [address] [place] [address] Immature granulocytes/100 WBC (Bld) 0.5 % Normal 0.0-0.9 [facility] Comment on above: Result Comment: Misty ture Granulocyte Count (IG) includes promyelocytes, myelocytes and metamyelocytes but does not include bands. Percent differential counts (%) should be interpreted in the context of the absolute cell counts (cells/UL). Performed By: #### 5 7021-8 #### RADU Sánchez ([id number]) [facility] ([id number]) [address] [place] [address] Lymphocytes (Bld) [#/Vol] 0.79 x10*3/uL Low 1.20-4.80 [facility] Comment on above: Performed By: #### 5 7021-8 #### RADU Sánchez ([id number]) [facility] ([id number]) [address] [place] [address] Lymphocytes/100 WBC (Bld) 20.4 % Normal 13.0-44.0 [facility] Comment on above: Performed By: #### 5 7021-8 #### RADU Sánchez ([id number]) [facility] ([id number]) [address] [place] [address] MCH (RBC) [Entitic mass] 30.6 pg Normal 26.0-34.0 [facility] Comment on above: Performed By: #### 5 7021-8 #### RADU Sánchez ([id number]) [facility] ([id number]) [address] [place] [address] MCHC (RBC) [Mass/Vol] 33.8 g/dL Normal 32.0-36.0 [facility] Comment on above: Performed By: #### 5 7021-8 #### RDAU Sánchez ([id number]) [facility] ([id number]) [address] [place] [address] MCV (RBC) [Entitic vol] 91 fL Normal 80-100 [facility] Comment on above: Performed By: #### 5 7021-8 #### RADU Sánchez ([id number]) [facility] ([id number]) [address] [place] [address] Monocytes (Bld) [#/Vol] 0.33 x10*3/uL Normal 0.10-1.00 [facility] Comment on above: Performed By: #### 5 7021-8 #### RADU Sánchez ([id number]) [facility] ([id number]) [address] [place] [address] Monocytes/100 WBC (Bld) 8.5 % Normal 2.0-10.0 [facility] Comment on above: Performed By: #### 5 7021-8 #### RADU Sánchez ([id number]) [facility] ([id number]) [address] [place] [address] Neutrophils (Bld) [#/Vol] 2.73 x10*3/uL Normal 1.20-7.70 [facility] Comment on above: Result Comment: Perc ent differential counts (%) should be interpreted in the context of the absolute cell counts (cells/uL). Performed By: #### 5 7021-8 #### RADU Sánchez ([id number]) [facility] ([id number]) [address] [place] [address] Neutrophils/100 WBC (Bld) 70.6 % Normal 40.0-80.0 [facility] Comment on above: Performed By: #### 5 7021-8 #### RADU Sánchez ([id number]) [facility] ([id number]) [address] [place] [address] Platelets (Bld) [#/Vol] 1 x10*3/uL Critically low 150-450 [facility] Comment on above: Result Comment: Plat elet count verified by smear review Performed By: #### 5 7021-8 #### RADU Sánchez ([id number]) [facility] ([id number]) [address] [place] [address] RBC (Bld) [#/Vol] 1.73 x10*6/uL Low 4.00-5.20 [facility] Comment on above: Performed By: #### 5 7021-8 #### RADU Sánchez ([id number]) [facility] ([id number]) [address] [place] [address] WBC (Bld) [#/Vol] 3.9 x10*3/uL Low 4.4-11.3 [facility] Comment on above: Performed By: #### 5 7021-8 #### RADU Sánchez ([id number]) [facility] ([id number]) [address] [place] [address] CBC panel Auto (Bld)on 02-03 Erythrocyte distribution width (RBC) [Ratio] 16.1 % High 11.5 - 14.5 % [facility] Hematocrit (Bld) [Volume fraction] 25.6 % Low 36.0 - 46.0 % [facility] Hemoglobin (Bld) [Mass/Vol] 8.5 g/dL Low 12.0 - 16.0 g/dL [facility] Interpretation and review of laboratory results Abnormal [facility] MCH (RBC) [Entitic mass] 27.2 pg 26.0 - 34.0 pg [facility] MCHC (RBC) [Mass/Vol] 33.2 g/dL 32.0 - 36.0 g/dL [facility] MCV (RBC) [Entitic vol] 82 fL 80 - 100 fL [facility] Nucleated RBC/100 WBC (Bld) [Ratio] 0.0 % [facility] Platelets (Bld) [#/Vol] 22 10*3/uL Critically low [facility] Comment on above: Platelet count verif ied by smear review Previous result verified on 02/03/2025 1035 on specimen/case [id number] called with component PLT for procedure CBC and Auto Differential with value 1 x10*3/uL. RBC (Bld) [#/Vol] 3.13 10*6/uL [facility] WBC (Bld) [#/Vol] 3.4 10*3/uL [facility] Erythrocyte distribution width (RBC) [Ratio] 16.1 % High 11.5-14.5 [facility] Comment on above: Order Comment: Pleas e obtain after transfusion Performed By: #### 5 8410-2 #### KHADIJAH FARLEY ([id number]) [facility] ([facility]) [address] [place] [address] Hematocrit (Bld) [Volume fraction] 25.6 % Low 36.0-46.0 [facility] Comment on above: Order Comment: Pleas e obtain after transfusion Performed By: #### 5 8410-2 #### KHADIJAH FARLEY ([id number]) [facility] ([facility]) [address] [place] [address] Hemoglobin (Bld) [Mass/Vol] 8.5 g/dL Low 12.0-16.0 [facility] Comment on above: Order Comment: Pleas e obtain after transfusion Performed By: #### 5 8410-2 #### KHADIJAH FARLEY ([id number]) [facility] ([facility]) [address] [place] [address] MCH (RBC) [Entitic mass] 27.2 pg Normal 26.0-34.0 [facility] Comment on above: Order Comment: Pleas e obtain after transfusion Performed By: #### 5 8410-2 #### KHADIJAH FARLEY ([id number]) [facility] ([facility]) [address] [place] [address] MCHC (RBC) [Mass/Vol] 33.2 g/dL Normal 32.0-36.0 [facility] Comment on above: Order Comment: Pleas e obtain after transfusion Performed By: #### 5 8410-2 #### KHADIJAH FARLEY ([id number]) [facility] ([facility]) [address] [place] [address] MCV (RBC) [Entitic vol] 82 fL Normal 80-100 U [facility] Comment on above: Order Comment: Pleas e obtain after transfusion Performed By: #### 5 8410-2 #### KHADIJAH FARLEY ([id number]) [facility] ([facility]) [address] [place] [address] Nucleated RBC/100 WBC (Bld) [Ratio] 0.0 /100 WBCs Normal 0.0-0.0 [facility] Comment on above: Order Comment: Pleas e obtain after transfusion Performed By: #### 5 8410-2 #### KHADIJAH FARLEY ([id number]) [facility] ([facility]) [address] [place] [address] Platelets (Bld) [#/Vol] 22 x10*3/uL Critically low 150-450 [facility] Comment on above: Order Comment: Pleas e obtain after transfusion Result Comment: Plat elet count verified by smear review Previous result verified on 02/03/2025 1035 on specimen/case [id number] called with component PLT for procedure CBC and Auto Differential with value 1 x10*3/uL. Performed By: #### 5 8410-2 #### KHADIJAH FARLEY ([id number]) [facility] ([facility]) [address] [place] [address] RBC (Bld) [#/Vol] 3.13 x10*6/uL Low 4.00-5.20 [facility] Comment on above: Order Comment: Pleas e obtain after transfusion Performed By: #### 5 8410-2 #### KHADIJAH FARLEY ([id number]) [facility] ([facility]) [address] [place] [address] WBC (Bld) [#/Vol] 3.4 x10*3/uL Low 4.4-11.3 [facility] Comment on above: Order Comment: Pleas e obtain after transfusion Performed By: #### 5 8410-2 #### KHADIJAH FARLEY ([id number]) [facility] ([facility] [address] [place] [address] Comprehensive metabolic 2000 panelon 02-03-2025 Albumin BCP dye [Mass/Vol] 2.5 g/dL Low 3.4 - 5.0 g/dL [facility] ALP [Catalytic activity/Vol] 115 U/L High 33 - 110 U/L [facility] ALT With P-5'-P [Catalytic activity/Vol] 3 U/L Low 7 - 45 U/L [facility] Comment on above: Patients treated wit h Sulfasalazine may generate falsely decreased results for ALT. Anion gap [Moles/Vol] 15 mmol/L 10 - 2 0 mmol/L [facility] AST With P-5'-P [Catalytic activity/Vol] 11 U/L 9 - 39 U/L [facility] Bilirubin [Mass/Vol] 0.7 mg/dL 0.0 - 1 .2 mg/dL [facility] Calcium [Mass/Vol] 5.9 mg/dL Low 8.6 - 10. 3 mg/dL [facility] Chloride [Moles/Vol] 92 mmol/L Low 98 - 10 7 mmol/L [facility] CO2 [Moles/Vol] 25 mmol/L 21 - 32 mmol/L [facility] Comment on above: Bicarbonate results may be falsely elevated when Lactate Dehydrogenase (LDH) concentrations exceed 2,000 U/L due to a temporary reagent manufacturing issue. If significantly elevated LDH levels are suspected, interpret bicarbonate results with caution, correlate with the patient s clinical status, and consider confirming CO2 values using a blood gas analyzer. Creatinine [Mass/Vol] 1.32 mg/dL High 0.50 - 1.05 mg/dL [facility] GFR/1.73 sq M.predicted among non-blacks MDRD (S/P/Bld) [Vol rate/Area] 54 mL/min/{1.73_m2} Low - PINF [facility] Comment on above: Calculations of gabby mated GFR are performed using the 2020 CKD-EPI Study Refit equation without the race variable for the IDMS-Traceable creatinine methods. https://jasn.asnjournals.org/content//ASN.2020 192371 Glucose [Mass/Vol] 106 mg/dL High 74 - 99 mg/dL [facility] Interpretation and review of laboratory results Abnormal [facility] Potassium [Moles/Vol] 2.6 mmol/L Critically low 3.5 - 5.3 mmol/L [facility] Protein [Mass/Vol] 5.3 g/dL Low 6.4 - 8.2 g/dL [facility] Sodium [Moles/Vol] 129 mmol/L Low 136 - 145 mmol/L [facility] Urea nitrogen [Mass/Vol] 19 mg/dL 6 - 23 mg/dL [facility] Albumin BCP dye [Mass/Vol] 2.5 g/dL Low 3.4-5.0 [facility] Comment on above: Performed By: #### 2 4323-8 #### KHADIJAH FARLEY ([id number]) [facility] ([facility]) [address] [place] [address] ALP [Catalytic activity/Vol] 115 U/L High 33-110 [facility] Comment on above: Performed By: #### 2 3-8 #### KHADIJAH FARLEY ([id number]) [facility] ([facility]) [address] [place] [address] ALT With P-5'-P [Catalytic activity/Vol] 3 U/L Low 7-45 [facility] Comment on above: Result Comment: Jaquelin ents treated with Sulfasalazine may generate falsely decreased results for ALT. Performed By: #### 2 4323-8 #### KHADIJAH FARLEY ([id number]) [facility] ([facility]) [address] [place] [address] Anion gap [Moles/Vol] 15 mmol/L Normal 10-20 [facility] Comment on above: Performed By: #### 2 3-8 #### KHADIJAH FARLEY ([id number]) [facility] ([facility]) [address] [place] [id number] AST With P-5'-P [Catalytic activity/Vol] 11 U/L Normal 9-39 [facility] Comment on above: Performed By: #### 2 4323-8 #### KHADIJAH FARLEY ([id number]) [facility] ([facility]) [address] [place] [address] Bilirubin [Mass/Vol] 0.7 mg/dL Normal 0.0-1.2 [facility] Comment on above: Performed By: #### 2 4323-8 #### KHADIJAH FARLEY ([id number]) [facility] ([facility]) [address] [place] [address] Calcium [Mass/Vol] 5.9 mg/dL Low 8.6-10.3 [facility] Comment on above: Performed By: #### 2 4323-8 #### KHADIJAH FARLEY ([id number]) [facility] ([facility]) [address] [place] [address] Chloride [Moles/Vol] 92 mmol/L Low 98-107 [facility] Comment on above: Performed By: #### 2 4323-8 #### KHADIJAH FARLEY ([id number]) [facility] ([facility]) [address] [place] [address] CO2 [Moles/Vol] 25 mmol/L Normal 21-32 [facility] Comment on above: Result Comment: Bica rbonate results may be falsely elevated when Lactate Dehydrogenase (LDH) concentrations exceed 2,000 U/L due to a temporary reagent manufacturing issue. If significantly elevated LDH levels are suspected, interpret bicarbonate results with caution, correlate with the patient's clinical status, and consider confirming CO2 values using a blood gas analyzer. Performed By: #### 2 4323-8 #### KHADIJAH FARLEY ([id number]) [facility] ([facility]) [address] [place] [address] Creatinine [Mass/Vol] 1.32 mg/dL High 0.50-1.05 [facility] Comment on above: Performed By: #### 2 4323-8 #### KHADIJAH FARLEY ([id number]) [facility] ([facility]) [address] [place] [address] Glomerular filtration rate 54 mL/min/1.73m*2 Low >60 [facility] Comment on above: Result Comment: Calc ulations of estimated GFR are performed using the 2021 CKD-EPI Study Refit equation without the race variable for the IDMS-Traceable creatinine methods. https://jasn.asnjournals.org/content//ASN.2020 940635 Performed By: #### 2 4323-8 #### KHADIJAH FARLEY ([id number]) [facility] ([facility]) [address] [place] [address] Glucose [Mass/Vol] 106 mg/dL High 74-99 [facility] Comment on above: Performed By: #### 2 4323-8 #### KHADIJAH FARLEY ([id number]) [facility] ([facility]) [address] [place] [address] Potassium [Moles/Vol] 2.6 mmol/L Critically low 3.5-5.3 [facility] Comment on above: Performed By: #### 2 4323-8 #### KHADIJAH FARLEY ([id number]) [facility] ([facility]) [address] [place] [address] Protein [Mass/Vol] 5.3 g/dL Low 6.4-8.2 [facility] Comment on above: Performed By: #### 2 4323-8 #### KHADIJAH FARLEY ([id number]) [facility] ([facility]) [address] [place] [address] Sodium [Moles/Vol] 129 mmol/L Low 136-145 [facility] Comment on above: Performed By: #### 2 4323-8 #### KHADIJAH FARLEY ([id number]) [facility] ([facility]) [address] [place] [address] Urea nitrogen [Mass/Vol] 19 mg/dL Normal 6-23 [facility] Comment on above: Performed By: #### 2 4323-8 #### KHADIJAH FARLEY ([id number]) [facility] ([facility]) [address] [place] [address] ECG 12-LEADon 02-03-2025 ECG 12-LEAD Ventricular Rate 128 Atrial Rate 128 P-R Interval 130 QRS Duration 80 Q-T Interval 276 QTC Calculation(Bazett) 402 P Alma 33 R Alma 50 T Alma -81 QRS Count 22 Q Onset 218 P Onset 163 P Offset 198 T Offset 356 QTC Fredericia 355 Diagnosis Sinus tachycardia Cannot rule out Anterior infarct , age undetermined Abnormal ECG No previous ECGs available See ED provider note for full interpretation and clinical correlation Confirmed by Isabelle Lemus ([id number]) on 02/07/2025 10:59:32 AM Normal [facility] LDH Lactate to pyruvate reac tion [Catalytic activity/Vol]on 02-03-2025 Interpretation and review of laboratory results Normal [facility] LDH, Lactate dehydrogenaseon 02-03-2025 LDH Lactate to pyruvate reaction [Catalytic activity/Vol] 143 U/L 84 - 246 U/L [facility] Lactate dehydrogenaseon LDH Lactate to pyruvate reaction [Catalytic activity/Vol] 143 U/L Normal 84-246 [facility] Comment on above: Performed By: #### 1 4804-9 #### XUAN Alex ([id number]) [facility] HOSPITAL [facility] ([facility]) [id number] [place] [address] Magnesiumon 02-03-2025 Magnesium [Mass/Vol] 0.77 mg/dL Low 1.60 - 2.40 mg/dL [facility] Magnesium [Mass/Vol] 0.77 mg/dL Low 1.60-2.40 [facility] Comment on above: Performed By: #### 1 9123-9 #### KHADIJAH FARLEY ([id number]) [facility] ([facility] [address] [place] [address] Magnesium [Mass/Vol]on 02-03 Interpretation and review of laboratory results Abnormal [facility] PT and aPTT panel Coag (PPP) on 02-03-2025 aPTT Coag (PPP) [Time] 28 s [facility] INR Coag (PPP) [Relative time] 1.2 {INR} High 0.9 - 1.1 [facility] Interpretation and review of laboratory results Abnormal [facility] PT Coag (PPP) [Time] 13.7 s High [facility] The APTT is no longer used for monitoring Unfractionated Heparin Therapy. For monitoring Heparin Therapy, use the Heparin Assay. [facility] aPTT Coag (PPP) [Time] 28 s Normal 26-36 Un [facility] Comment on above: Order Comment: The A PTT is no longer used for monitoring Unfractionated Heparin Therapy. For monitoring Heparin Therapy, use the Heparin Assay. Performed By: #### 3 4529-8 #### KHADIJAH FARLEY ([id number]) [facility] ([facility] [address] [phone] INR Coag (PPP) [Relative time] 1.2 High 0.9-1.1 [facility] Comment on above: Order Comment: The A PTT is no longer used for monitoring Unfractionated Heparin Therapy. For monitoring Heparin Therapy, use the Heparin Assay. Performed By: #### 3 4529-8 #### KHADIJAH FARLEY ([id number]) [facility] ([facility] [address] [place] [address] PT Coag (PPP) [Time] 13.7 s High 9.8-12.4 [facility] Comment on above: Order Comment: The A PTT is no longer used for monitoring Unfractionated Heparin Therapy. For monitoring Heparin Therapy, use the Heparin Assay. Performed By: #### 3 4529-8 #### KHADIJAH FARLEY ([id number]) [facility] ([facility] [address] [phone] Pathologist review Pathologi st comment (Bld) [Interp]on 02-03-2025 PATH REVIEW-CBC DIFFERENTIAL Normocytic anemia and thrombocytopenia. Possible treatment effect. Normal [facility] Comment on above: Result Comment: Elec tronically signed out by Malissa Mandujano MD on 02/06/25 at 1:52 PM. By the signature on this report, the individual or group listed as making the Final Interpretation/Diagnosis certifies that they have reviewed this case. Performed By: #### 2 1482-5 #### RADU Sánchez ([id number]) XUAN Alex ([id number]) [facility] ([id number]) [address] [place] [address] [facility] ([facility]) [address] [place] [address] Phosphateon 02-03-2025 Phosphate [Mass/Vol] 4.2 mg/dL Normal 2.5-4.9 [facility] Comment on above: Performed By: #### 2 777-1 #### KHADIJAH MARTINE ([id number]) [facility] ([facility] [address] [place] [address] Phosphate [Mass/Vol]on 02-03 Interpretation and review of laboratory results Normal [facility] Phosphoruson 02-03-2025 Phosphate [Mass/Vol] 4.2 mg/dL 2.5 - 4 .9 mg/dL [facility] Prepare Platelets: 1 Units, Irradiatedon 02-03-2025 Blood Expiration Date 02/04/2025 11:59:00 PM EST [facility] Dispense Status TR [facility] PRODUCT BLOOD TYPE 6200 [facility] PRODUCT CODE [id number] [facility] Unit ABO A [facility] Unit Number [id number] [facility] Unit RH Positive [facility] UNIT VOLUME 303 [facility] Prepare RBC: 1 Unitson 02-03 Blood Expiration Date 03/10/2025 11:59:0 0 PM EST [facility] Dispense Status TR [facility] PRODUCT BLOOD TYPE 5100 [facility] PRODUCT CODE [id number] [facility] Unit ABO O [facility] Unit Number [id number] [facility] Unit RH Positive [facility] UNIT VOLUME 350 [facility] XM INTEP COMP [facility] Prepare RBC: 1 Units, Irradi atedon 02-03-2025 Blood Expiration Date 02/10/2025 11:59:0 0 PM EST [facility] Dispense Status TR [facility] PRODUCT BLOOD TYPE 5100 [facility] PRODUCT CODE [id number] [facility] Unit ABO O [facility] Unit Number [id number] [facility] Unit RH Positive [facility] UNIT VOLUME 350 [facility] XM INTEP COMP [facility] RBC shape Nom (Bld)on 2024 RBC morphology finding Nom (Bld) No significant RBC morphology present [facility] Comment on above: Performed By: #### 1 8225-3 #### RADU Sánchez ([id number]) [facility] ([id number]) [address] [place] [address] VERAB/VERIFY ABORHon 025 ABO group Nom (Bld) O Normal Unive [facility] Comment on above: Order Comment: Thi s is for confirming/verifying history of ABORh on file for transfusion of blood products. If this is not for transfusion, please order an ABO/RH [[id number]]. If you have any questions or unsure what to order, please call the blood bank. Performed By: #### V ERAB #### KHADIJAH FARLEY ([id number]) [facility] ([facility]) [address] [place] [address] D Ag Ql (Bld) Positive [facility] Comment on above: Order Comment: Thi s is for confirming/verifying history of ABORh on file for transfusion of blood products. If this is not for transfusion, please order an ABO/RH [[id number]]. If you have any questions or unsure what to order, please call the blood bank. Performed By: #### V ERAB #### KHADIJAH FARLEY ([id number]) [facility] ([facility]) [address] [place] [address] ABO group Nom (Bld) O Normal [facility] Comment on above: Order Comment: THI S FOR CONFIRMING/VERIFYING HISTORY OF ABORh ON FILE. IF REQUESTING AN ABO/Rh, PLEASE ORDER AN ABO/Rh [id number]. Specimen for compatibility testing requires full first and last name, MRN, , date, time of collection, and lay out former/payment collector's signature on tube(s) or it will be rejected. Please collect 1 lavender top-KEDTA OR 1 pink top-KEDTA and sign, date and time with the patient's full first and last name, MRN and . Performed By: #### V ERAB #### XUAN Alex ([id number]) [facility] ([facility]) [address] [place] [address] D Ag Ql (Bld) Positive Normal [facility] Comment on above: Order Comment: THI S FOR CONFIRMING/VERIFYING HISTORY OF ABORh ON FILE. IF REQUESTING AN ABO/Rh, PLEASE ORDER AN ABO/Rh [id number]. Specimen for compatibility testing requires full first and last name, MRN, , date, time of collection, and lay out former/payment collector's signature on tube(s) or it will be rejected. Please collect 1 lavender top-KEDTA OR 1 pink top-KEDTA and sign, date and time with the patient's full first and last name, MRN and . Performed By: #### V ERAB #### XUAN Alex ([id number]) [facility] ([facility]) [address] [place] [address] VERIFY ABO/Rh Group Teston 1 04-05-2024 ABO group Nom (Bld) O [facility] D Ag Ql (Bld) Positive [facility] Bacteria identified Cx Nom ( U)on 01-19-2025 [facility] CBC W Auto Differential pane l (Bld)on 01-19-2025 Basophils (Bld) [#/Vol] 0.01 x10*3/uL Normal 0.00-0.10 [facility] Comment on above: Performed By: #### 5 7021-8 #### RADU Sánchez ([id number]) [facility] ([id number]) [address] [place] [address] Basophils/100 WBC (Bld) 0.3 % Normal 0.0-2.0 [facility] Comment on above: Performed By: #### 5 7021-8 #### RADU Sánchez ([id number]) [facility] ([id number]) [address] [place] [address] Eosinophils (Bld) [#/Vol] 0.02 x10*3/uL Normal 0.00-0.70 [facility] Comment on above: Performed By: #### 5 7021-8 #### RADU Sánchez ([id number]) [facility] ([id number]) [address] [place] [address] Eosinophils/100 WBC (Bld) 0.7 % Normal 0.0-6.0 [facility] Comment on above: Performed By: #### 5 7021-8 #### RADU Sánchez ([id number]) [facility] ([id number]) [address] [phone] Erythrocyte distribution width (RBC) [Ratio] 15.3 % High 11.5-14.5 [facility] Comment on above: Performed By: #### 5 7021-8 #### RADU Sánchez ([id number]) [facility] ([id number]) [address] [phone] Hematocrit (Bld) [Volume fraction] 29.6 % Low 36.0-46.0 [facility] Comment on above: Performed By: #### 5 7021-8 #### RADU Sánchez ([id number]) [facility] ([id number]) [address] [address] Hemoglobin (Bld) [Mass/Vol] 9.8 g/dL Low 12.0-16.0 [facility] Comment on above: Performed By: #### 5 7021-8 #### RADU Sánchez ([id number]) [facility] ([id number]) [address] [place] [address] Immature granulocytes (Bld) [#/Vol] 0.01 x10*3/uL Normal 0.00-0.70 [facility] Comment on above: Performed By: #### 5 7021-8 #### RADU Sánchez ([id number]) [facility] ([id number]) [address] [place] [address] Immature granulocytes/100 WBC (Bld) 0.3 % Normal 0.0-0.9 [facility] Comment on above: Result Comment: Misty ture Granulocyte Count (IG) includes promyelocytes, myelocytes and metamyelocytes but does not include bands. Percent differential counts (%) should be interpreted in the context of the absolute cell counts (cells/UL). Performed By: #### 5 7021-8 #### RADU Sánchez ([id number]) [facility] ([id number]) [address] [phone] Lymphocytes (Bld) [#/Vol] 0.60 x10*3/uL Low 1.20-4.80 [facility] Comment on above: Performed By: #### 5 7021-8 #### RADU Sánchez ([id number]) [facility] ([id number]) [address] [address] Lymphocytes/100 WBC (Bld) 19.9 % Normal 13.0-44.0 [facility] Comment on above: Performed By: #### 5 7021-8 #### RADU Sánchez ([id number]) [facility] ([id number]) [address] [place] [address] MCH (RBC) [Entitic mass] 30.8 pg Normal 26.0-34.0 [facility] Comment on above: Performed By: #### 5 7021-8 #### RADU Sánchez ([id number]) [facility] ([id number]) [address] [place] [address] MCHC (RBC) [Mass/Vol] 33.1 g/dL Normal 32.0-36.0 [facility] Comment on above: Performed By: #### 5 7021-8 #### RADU Sánchez ([id number]) [facility] ([id number]) [address] [place] [address] MCV (RBC) [Entitic vol] 93 fL Normal 80-100 [facility] Comment on above: Performed By: #### 5 7021-8 #### RADU Sánchez ([id number]) [facility] ([id number]) [address] [place] [address] Monocytes (Bld) [#/Vol] 0.44 x10*3/uL Normal 0.10-1.00 [facility] Comment on above: Performed By: #### 5 7021-8 #### RADU Sánchez ([id number]) [facility] ([id number]) [address] [address] Monocytes/100 WBC (Bld) 14.6 % Normal 2.0-10.0 [facility] Comment on above: Performed By: #### 5 7021-8 #### RADU Sánchez ([id number]) [facility] ([id number]) [address] [address] Neutrophils (Bld) [#/Vol] 1.93 x10*3/uL Normal 1.20-7.70 [facility] Comment on above: Result Comment: Perc ent differential counts (%) should be interpreted in the context of the absolute cell counts (cells/uL). Performed By: #### 5 7021-8 #### RADU Snáchez ([id number]) [facility] ([id number]) [address] [place] [address] Neutrophils/100 WBC (Bld) 64.2 % Normal 40.0-80.0 [facility] Comment on above: Performed By: #### 5 7021-8 #### RADU Sánhcez ([id number]) [facility] ([id number]) [address] [place] [address] Platelets (Bld) [#/Vol] 94 x10*3/uL Low 150-450 [facility] Comment on above: Performed By: #### 5 7021-8 #### RADU Sánchez ([id number]) [facility] ([id number]) [address] [place] [address] RBC (Bld) [#/Vol] 3.18 x10*6/uL Low 4.00-5.20 [facility] Comment on above: Performed By: #### 5 7021-8 #### RADU Sánchez ([id number]) [facility] ([id number]) [address] [place] [address] WBC (Bld) [#/Vol] 3.0 x10*3/uL Low 4.4-11.3 [facility] Comment on above: Performed By: #### 5 7021-8 #### RADU Sánchez ([id number]) [facility] ([id number]) [address] [place] [address] CULTURE, URINE, ROUTINEon CULTURE, URINE, ROUTINE SEE NOTE Normal [facility] Comment on above: Result Comment: CULTURE, URINE, ROUTINE Micro Number: [id number] Test Status: Final Specimen Source: Urine Specimen Quality: Adequate Result: Mixed genital paula isolated. These superficial bacteria are not indicative of a urinary tract infection. No further organism identification is warranted on this specimen. If clinically indicated, recollect clean-catch, mid-stream urine and transfer immediately to Urine Culture Transport Tube. Performed By: #### 3 95 #### [facility] [address], [address] [place] [address] Tower Observer: Harshad Craft MD Urine Cultureon 01-19-2025 Bacteria identified Cx Nom (U) SEE NOTE [facility] Comment on above: CULTURE, URINE, ROUTINE Micro Number: [id number] Test Status: Final Specimen Source: Urine Specimen Quality: Adequate Result: Mixed genital paula isolated. These superficial bacteria are not indicative of a urinary tract infection. No further organism identification is warranted on this specimen. If clinically indicated, recollect clean-catch, mid-stream urine and transfer immediately to Urine Culture Transport Tube. POCT UA Automated manually r esultedOrdered By: Cassi Canales on 01-17-2025 Appearance (U) Clear Clear [facility] Glucose Test strip (U) [Mass/Vol] Negative NEGATIVE mg/dl [facility] Hemoglobin Ql (U) MODERATE (2+) Abnormal NEGATIVE [facility] Interpretation and review of laboratory results Abnormal [facility] Leukocyte esterase Test strip Ql (U) SMALL (1+) Abnormal NEGATIVE [facility] Nitrite Ql (U) Negative NEGATIVE [facility] pH (U) 6.0 [pH] No Reference Range Established [facility] POC Bilirubin, Urine Negative NEGATIVE [facility] POC Color, Urine Yellow Straw, Yellow, Light-Yellow [facility] POC Ketones, Urine Negative NEGATIVE mg/dl [facility] POC Protein, Urine >=300 (3+) Abnormal NEGATIVE mg/dl [facility] POC Specific [place], Urine 1.025 1.005 - 1.035 [facility] POC Urobilinogen, Urine 1.0 0.2, 1.0 EU/DL [facility] CBC W Auto Differential pane l (Bld)on 01-16-2025 Basophils (Bld) [#/Vol] 0.00 x10*3/uL Normal 0.00-0.10 [facility] Comment on above: Result Comment: Auto mated WBC differential has been confirmed by manual smear review Performed By: #### 5 7021-8 #### RADU Sánchez ([id number]) [facility] ([id number]) [address] [place] [address] Basophils/100 WBC (Bld) 0.0 % Normal 0.0-2.0 [facility] Comment on above: Performed By: #### 5 7021-8 #### RADU Sánchez ([id number]) [facility] ([id number]) [address] [place] [address] Eosinophils (Bld) [#/Vol] 0.02 x10*3/uL Normal 0.00-0.70 [facility] Comment on above: Performed By: #### 5 7021-8 #### RADU Sánchez ([id number]) [facility] ([id number]) [address] [place] [address] Eosinophils/100 WBC (Bld) 0.6 % Normal 0.0-6.0 [facility] Comment on above: Performed By: #### 5 7021-8 #### RADU Sánchez ([id number]) [facility] ([id number]) [address] [place] [address] Erythrocyte distribution width (RBC) [Ratio] 15.3 % High 11.5-14.5 [facility] Comment on above: Performed By: #### 5 7021-8 #### RADU Sánchez ([id number]) [facility] ([id number]) [address] [address] Hematocrit (Bld) [Volume fraction] 29.6 % Low 36.0-46.0 [facility] Comment on above: Performed By: #### 5 7021-8 #### RADU Sánchez ([id number]) [facility] ([id number]) [address] [place] [address] Hemoglobin (Bld) [Mass/Vol] 9.9 g/dL Low 12.0-16.0 [facility] Comment on above: Performed By: #### 5 7021-8 #### RADU Sánchez ([id number]) [facility] ([id number]) [address] [place], [place] [address] Immature granulocytes (Bld) [#/Vol] 0.02 x10*3/uL Normal 0.00-0.70 [facility] Comment on above: Performed By: #### 5 7021-8 #### RADU Sánchez ([id number]) [facility] ([id number]) [address] [place] [address] Immature granulocytes/100 WBC (Bld) 0.6 % Normal 0.0-0.9 [facility] Comment on above: Result Comment: Misty ture Granulocyte Count (IG) includes promyelocytes, myelocytes and metamyelocytes but does not include bands. Percent differential counts (%) should be interpreted in the context of the absolute cell counts (cells/UL). Performed By: #### 5 7021-8 #### RADU Sánchez ([id number]) [facility] ([id number]) [address] [place] [address] Lymphocytes (Bld) [#/Vol] 0.82 x10*3/uL Low 1.20-4.80 [facility] Comment on above: Performed By: #### 5 7021-8 #### RADU Sánchez ([id number]) [facility] ([id number]) [address] [place] [address] Lymphocytes/100 WBC (Bld) 24.8 % Normal 13.0-44.0 [facility] Comment on above: Performed By: #### 5 7021-8 #### RADU Sánchez ([id number]) [facility] ([id number]) [address] [place] [address] MCH (RBC) [Entitic mass] 31.4 pg Normal 26.0-34.0 [facility] Comment on above: Performed By: #### 5 7021-8 #### RADU Sánchez ([id number]) [facility] ([id number]) [address] [place] [address] MCHC (RBC) [Mass/Vol] 33.4 g/dL Normal 32.0-36.0 [facility] Comment on above: Performed By: #### 5 7021-8 #### RADU Sánchez ([id number]) [facility] ([id number]) [address] [place] [address] MCV (RBC) [Entitic vol] 94 fL Normal 80-100 [facility] Comment on above: Performed By: #### 5 7021-8 #### RADU Sánchez ([id number]) [facility] ([id number]) [address] [place] [address] Monocytes (Bld) [#/Vol] 0.32 x10*3/uL Normal 0.10-1.00 [facility] Comment on above: Performed By: #### 5 7021-8 #### RADU Sánchez ([id number]) [facility] ([id number]) [address] [place] [address] Monocytes/100 WBC (Bld) 9.7 % Normal 2.0-10.0 [facility] Comment on above: Performed By: #### 5 7021-8 #### RADU Sánchez ([id number]) [facility] ([id number]) [address] [place] [address] Neutrophils (Bld) [#/Vol] 2.13 x10*3/uL Normal 1.20-7.70 [facility] Comment on above: Result Comment: Perc ent differential counts (%) should be interpreted in the context of the absolute cell counts (cells/uL). Performed By: #### 5 7021-8 #### RADU Sánchez ([id number]) [facility] ([id number]) [address] [place] [address] Neutrophils/100 WBC (Bld) 64.3 % Normal 40.0-80.0 [facility] Comment on above: Performed By: #### 5 7021-8 #### RADU Sánchez ([id number]) [facility] ([id number]) [address] [place] [address] Platelets (Bld) [#/Vol] 53 x10*3/uL Low 150-450 [facility] Comment on above: Result Comment: Plat elet count verified by smear review Performed By: #### 5 7021-8 #### RADU Sánchez ([id number]) [facility] ([id number]) [address] [place] [address] RBC (Bld) [#/Vol] 3.15 x10*6/uL Low 4.00-5.20 [facility] Comment on above: Performed By: #### 5 7021-8 #### RADU Sánchez ([id number]) [facility] ([id number]) [address] [place] [address] WBC (Bld) [#/Vol] 3.3 x10*3/uL Low 4.4-11.3 [facility] Comment on above: Performed By: #### 5 7021-8 #### RADU Sánchez ([id number]) [facility] ([id number]) [address] [place] [address] Cancer Ag 125on 01-16-2025 Cancer Ag 125 Qn 135.3 [arb'U]/mL High 0.0-30.2 [facility] Comment on above: Order Comment: CA 12 5 testing is performed by chemiluminescent immunoassay using the [employer]. Values obtained with different analytic methods cannot be used interchangeably. Serum CA 125 measurement is intended for use as an aid in monitoring patients previously treated for ovarian cancer. This assay is not intended for screening or diagnosis of cancer in the general population. The results must not be used as the sole means for clinical diagnosis or patient management decisions. Performed By: #### 1 0334-1 #### XUAN Alex ([id number]) [facility] ([facility]) [id number] [place] [address] Comprehensive metabolic 2000 panelon 01-16-2025 Albumin BCP dye [Mass/Vol] 2.6 g/dL Low 3.4-5.0 [facility] Comment on above: Performed By: #### 2 4323-8 #### RADU Sánchez ([id number]) [facility] ([id number]) [address] [place] [address] ALP [Catalytic activity/Vol] 127 U/L High 33-110 [facility] Comment on above: Performed By: #### 2 4323-8 #### RADU Sánchez ([id number]) [facility] ([id number]) [address] [address] ALT With P-5'-P [Catalytic activity/Vol] 3 U/L Low 7-45 [facility] Comment on above: Result Comment: Jaquelin ents treated with Sulfasalazine may generate falsely decreased results for ALT. Performed By: #### 2 4323-8 #### RADU Sánchez ([id number]) [facility] ([id number]) [address] [place] [address] Anion gap [Moles/Vol] 14 mmol/L Normal 10-20 [facility] Comment on above: Performed By: #### 2 4323-8 #### RADU Sánchez ([id number]) [facility] ([id number]) [address] [place] [address] AST With P-5'-P [Catalytic activity/Vol] 12 U/L Normal 9-39 [facility] Comment on above: Performed By: #### 2 4323-8 #### RADU Sánchez ([id number]) [facility] ([id number]) [address] [place] [address] Bilirubin [Mass/Vol] 0.4 mg/dL Normal 0.0-1.2 [facility] Comment on above: Performed By: #### 2 4323-8 #### RADU Sánchez ([id number]) [facility] ([id number]) [address] [place] [address] Calcium [Mass/Vol] 6.0 mg/dL Low 8.6-10.3 [facility] Comment on above: Performed By: #### 2 4323-8 #### RADU Sánchez ([id number]) [facility] ([id number]) [address] [place] [address] Chloride [Moles/Vol] 101 mmol/L Normal 98-107 [facility] Comment on above: Performed By: #### 2 4323-8 #### RADU Sánchez ([id number]) [facility] ([id number]) [address] [place] [address] CO2 [Moles/Vol] 25 mmol/L Normal 21-32 [facility] Comment on above: Performed By: #### 2 4323-8 #### RADU Sánchez ([id number]) [facility] ([id number]) [address] [place] [address] Creatinine [Mass/Vol] 0.63 mg/dL Normal 0.50-1.05 [facility] Comment on above: Performed By: #### 2 4323-8 #### RADU Sánchez ([id number]) [facility] ([id number]) [address] [place] [address] Glomerular filtration rate >90 Normal >60 [facility] Comment on above: Result Comment: Calc ulations of estimated GFR are performed using the 2020 CKD-EPI Study Refit equation without the race variable for the IDMS-Traceable creatinine methods. https://jasn.asnjournals.org/content/early//ASN.2020 940449 Performed By: #### 2 4323-8 #### RADU Sánchez ([id number]) [facility] ([id number]) [address] [place] [address] Glucose [Mass/Vol] 82 mg/dL Normal 74-99 [facility] Comment on above: Performed By: #### 2 4323-8 #### RADU Sánchez ([id number]) [facility] ([id number]) [address] [place] [address] Potassium [Moles/Vol] 3.3 mmol/L Low 3.5-5.3 [facility] Comment on above: Performed By: #### 2 4323-8 #### RADU Sánchez ([id number]) [facility] ([id number]) [address] [place] [address] Protein [Mass/Vol] 5.5 g/dL Low 6.4-8.2 [facility] Comment on above: Performed By: #### 2 4323-8 #### RADU Sánchez ([id number]) [facility] ([id number]) [address] [place] [address] Sodium [Moles/Vol] 137 mmol/L Normal 136-145 [facility] Comment on above: Performed By: #### 2 4323-8 #### RADU Sánchez ([id number]) [facility] ([id number]) [address] [place] [address] Urea nitrogen [Mass/Vol] 8 mg/dL Normal 6- [facility] Comment on above: Performed By: #### 2 4323-8 #### RADU Sánchez ([id number]) [facility] ([id number]) [address] [place] [address] RBC shape Nom (Bld)on 2024 RBC morphology finding Nom (Bld) No significant RBC morphology present Normal [facility] Comment on above: Performed By: #### 1 8225-3 #### RADU Sánchez ([id number]) [facility] ([id number]) [address] [place] [address] L501.2276on 01-14-2025 Ionized Calcium 0.90 mmol/L Low 1.09-1.30 [facility] Comment on above: Performed By: #### L 501.2276 #### [facility] [address] [place], [place], [address] Anion gap in Serum or Plasma Ordered By: Nathen Piper on 01-11-2025 Anion gap [Moles/Vol] 12 mmol/L 08-11 [facility] BPPHRon 01-11-2025 PPHR Normal [facility] Comment on above: Result Comment: [id number] OP PPHR TRANSFUSED 01/11/25 1737 Performed By: #### B , BPPHR #### [facility] [address] [place], [place], [address] BRCon 01-11-2025 RC Normal [facility] Comment on above: Result Comment: [id number] OP RC TRANSFUSED 01/11/25 1419 [id number] OP RC TRANSFUSED 01/11/25 1813 [id number] OP RC TRANSFUSED 01/11/25 1618 Performed By: #### B JOHNNIE, BPPHR #### [facility] [address] [place], [place], [address] BUN/creatinine ratioOrdered By: Nathen Piper on 01-11-2025 Urea nitrogen/Creatinine [Mass ratio] 9.0 mg/mg Low 10-20 [facility] Bilirubin, totalOrdered By: Nathen Piper on 01-11-2025 Bilirubin [Mass/Vol] 0.23 mg/dL 0.00-1.30 [facility] Blood manual differential co mment interpretation (narrative result)Ordered By: Nathen Piper on 01-11-2025 Manual differential comment Bertin (Bld) [Interp] COMMENT [facility] Comment on above: SLIDE SCANNED - ANEM IA AND MARKED DECREASE IN PLT POPULATION. CBC-Complete Blood Cnt No Di ffon 01-11-2025 Hemoglobin (Bld) [Mass/Vol] 4.0 g/dL Invalid Interpretation Code 12.0-15.0 [facility] Comment on above: Result Comment: CRIT ICAL VALUE CALLED TO JAMEY HERNANDEZ (ER) 01/11/25 1153 Davide Riojas. RESULTS READ BACK BY SAME. Performed By: #### L 100.0500, BTS, L100.4500, L500.4050 #### [facility] [address] [place], [address] Platelets (Bld) [#/Vol] 15 10*3/uL Invalid Interpretation Code 150-450 [facility] Comment on above: Result Comment: CRIT ICAL VALUE CALLED TO JAMEY HERNANDEZ (ER) 01/11/25 1153 Davide Riojas. RESULTS READ BACK BY SAME. Performed By: #### L 100.0500, BTS, L100.4500, L500.4050 #### [facility] [address] [place], [address] Carbon dioxide, total [Moles /volume] in Central venous bloodOrdered By: Nathen Piper on 01-11-2025 CO2 [Moles/Vol] 24.1 mmol/L 21.0-32.0 [facility] Chloride assayOrdered By: Ug o Piper on 01-11-2025 Chloride [Moles/Vol] 99 mmol/L 98-108 [facility] Comprehensive Metabolic Prof ilon 10-15-2025 Albumin [Mass/Vol] 2.5 g/dL Low 3.5-5.0 [facility] Comment on above: Performed By: #### L 100.0500, BTS, L100.4500, L500.4050 #### [facility] [address] [place], [address] Albumin/Globulin [Mass ratio] 0.9 {ratio} Normal 0.9-2.4 [facility] Comment on above: Performed By: #### L 100.0500, BTS, L100.4500, L500.4050 #### [facility] [address] [place], [address] ALK PHOS 84 U/L Normal 35-104 [facility] Comment on above: Performed By: #### L 100.0500, BTS, L100.4500, L500.4050 #### [facility] [address] [place], [address] ALT [Catalytic activity/Vol] U/L Normal <=34 [facility] Comment on above: Performed By: #### L 100.0500, BTS, L100.4500, L500.4050 #### [facility] [address] [place], [address] AST [Catalytic activity/Vol] 14 U/L Normal <=31 [facility] Comment on above: Performed By: #### L 100.0500, BTS, L100.4500, L500.4050 #### [facility] [address] [place], [address] Bilirubin [Mass/Vol] 0.23 mg/dL Normal 0.00-1.30 [facility] Comment on above: Performed By: #### L 100.0500, BTS, L100.4500, L500.4050 #### [facility] [address] [place], [address] BUN/CRE 9.0 RATIO Low 10-20 [facility] Comment on above: Performed By: #### L 100.0500, BTS, L100.4500, L500.4050 #### [facility] [address] [place], [address] Calcium [Mass/Vol] 5.8 mg/dL Invalid Interpretation Code 7.6-11.0 [facility] Comment on above: Result Comment: Crit ical Result(s) Called at: 1235 01/11/2025 by: CONRADO PIERRE??Results read back by same. Performed By: #### L 100.0500, BTS, L100.4500, L500.4050 #### [facility] [address] [place], [address] Chloride [Moles/Vol] 99 mmol/L Normal 98-108 [facility] Comment on above: Performed By: #### L 100.0500, BTS, L100.4500, L500.4050 #### [facility] [address] [place], [address] CO2 [Moles/Vol] 24.1 mmol/L Normal 21.0-32.0 [facility] Comment on above: Performed By: #### L 100.0500, BTS, L100.4500, L500.4050 #### [facility] [address] [place], [address] Creatinine [Mass/Vol] 0.93 mg/dL Normal 0.70-1.20 [facility] Comment on above: Performed By: #### L 100.0500, BTS, L100.4500, L500.4050 #### [facility] [address] [place], [address] ECRCL 66.64 ml/min Normal 50-250 [facility] Comment on above: Performed By: #### L 100.0500, BTS, L100.4500, L500.4050 #### [facility] [address] [place], [address] GAP 12 Normal 5-15 [facility] Comment on above: Performed By: #### L 100.0500, BTS, L100.4500, L500.4050 #### [facility] [address] [place], [address] GFR/1.73 sq M.predicted among non-blacks MDRD (S/P/Bld) [Vol rate/Area] 82 mL/min/{1.73_m2} Normal >60 [facility] Comment on above: Result Comment: mL/m in/1.73m2 CKD-EPI Creatinine Equation (2020) Performed By: #### L 100.0500, BTS, L100.4500, L500.4050 #### [facility] [address] [place], [address] Globulin (S) [Mass/Vol] 2.8 g/dL Normal 2.2-4.2 [facility] Comment on above: Performed By: #### L 100.0500, BTS, L100.4500, L500.4050 #### [facility] [address] [place], [address] Glucose [Mass/Vol] 86 mg/dL Normal 70-99 [facility] Comment on above: Performed By: #### L 100.0500, BTS, L100.4500, L500.4050 #### [facility] [address] [place], [address] Potassium [Moles/Vol] 3.0 mmol/L Low 3.3-5.1 [facility] Comment on above: Performed By: #### L 100.0500, BTS, L100.4500, L500.4050 #### [facility] [address] [place], [address] Sodium [Moles/Vol] 135 mmol/L Normal 133-145 [facility] Comment on above: Performed By: #### L 100.0500, BTS, L100.4500, L500.4050 #### [facility] [address] [place], [address] T PROT 5.3 g/dL Low 5.9-8.4 [facility] Comment on above: Performed By: #### L 100.0500, BTS, L100.4500, L500.4050 #### [facility] [address] [place], [address] Urea nitrogen [Mass/Vol] 8 mg/dL Normal 4- [facility] Comment on above: Performed By: #### L 100.0500, BTS, L100.4500, L500.4050 #### [facility] [address] [place], [address] Differential Commenton 01-11 SMEAR COMMENT COMMENT Normal [facility] Comment on above: Result Comment: SLID E SCANNED - ANEMIA AND MARKED DECREASE IN PLT POPULATION. Performed By: #### L 100.0500, BTS, L100.4500, L500.4050 #### [facility] [address] [place], [address] Emergency Department Summary on 01-11-2025 Emergency Department Summary [facility] Medical Records Department [address] [place] [address] Emergency Department Summary 01/11/25 MR#: [id number] Acct: [id number] Name: JESSICA ALVARADO Rep #: [id number] : 1990 34 From: Nathen Piper MD PCP: Care Physician,No Primary Status:REG ER Location: ED HPI History of Present Illness Chief Complaint: Abn Labs Detail of Chief Complaint: Hemoglobin 4.4 platelet count 14,000 Informant: patient Onset/Context/Timing Onset: Yesterday (Blood work yesterday at facility) Context: - (Unknown) Timing: Continuous Quality: Anemia and thrombocytopenia Location: Hematologic, due to chemo for cervical cancer Current Severity: Mild Maximum Severity: Moderate (Dyspnea on exertion) Worsened by: Activity Relieved by: Nothing Associated Symptoms Associated Symptoms: Dyspnea on exertion Narrative Narrative: Patient is a 34-year-old woman. She receives her cancer treatment through . She had blood work yesterday prior to chemo. She is scheduled for chemo tomorrow. Her hemoglobin was 4.4 and her platelet count was 14,000. She denies bleeding of her gums, hematuria, black or maroon stool. She denies bruising easily. She has not noted any red dots on her lower extremity. She denies fever, chills night sweats. She denies any upper respiratory tract infectious symptoms. She denies cardiac symptoms. Her only respiratory symptom is dyspnea on exertion. Prior similar symptoms: Yes (Patient has required transfusions between treatments.) Recent Illness/Hospitalizat ion: Yes PFSH PFSH Medical History Anxiety Depression GERD (gastroesophageal reflux disease) Non-smoker Home Medications ???Medication ???Instructions ???Recorded ???Last Taken ???Type dexamethasone 4 mg tablet mg PO 01/11/25 Unknown History oxycodone 5 mg capsule 5 mg PO Q6H PRN PRN severe pain Unknown History potassium chloride 20 mEq oral 20 meq PO BID #30 ea 01/11/25 Unkn own Rx packet Allergy/AdvReac Type Severity Reaction Status Date / Time No Known Allergies Allergy Verified 01/11/25 11:01 Social History Smoking Status: Never smoker ROS ROS ED Constitutional Constitutional ED: Denies chills, fever(s), subjective or sweats Eyes Eyes: Denies blurry vision or change in vision Cardiovascular Cardiovascular: Denies chest pain, orthopnea, palpitations, paroxysmal nocturnal dyspnea or racing heartbeat Respiratory/Chest Respiratory/Chest: Reports dyspnea on exertion; Denies cough, dyspnea, orthopnea or paroxysmal nocturnal dyspnea Gastrointestinal Gastrointestinal: Denies abdominal pain, melena or vomiting Genitourinary Genitourinary ED: Denies hematuria Neurologic Neurologic: Denies weakness Hematologic/Lymphati c Hematologic/Lymphati c: Denies easy bruising EXAM Physical Exam Const Vital Signs: 01/11/25 10:58 01/11/25 11:51 01/11/25 13:47 Temperature 98.5 F 98.7 F Temperature Source Oral Oral Pulse Rate 123 H 108 H Respiratory Rate 16 18 Respiratory Effort Normal Short of Breath Respiratory Pattern Normal Blood Pressure 119/104 H 95/75 Blood Pressure Mean 109 81 Blood Pressure Source Blood Pressure Position Blood Pressure Location Pulse Ox 100 99 Oxygen Delivery Method Room Air 01/11/25 14:38 01/11/25 14:52 01/11/25 14:53 Temperature 99.1 F 98.6 F 99.4 F H Temperature Source Oral Oral Oral Pulse Rate 108 H 107 H 107 H Respiratory Rate 20 H 20 H 20 H Respiratory Effort Respiratory Pattern Blood Pressure 92/74 94/74 88/63 L Blood Pressure Mean 80 80 71 Blood Pressure Source Monitor Monitor Monitor Blood Pressure Position Semi-Fowlers Semi-Fowlers Right Lateral Blood Pressure Location Left Arm Right Arm Pulse Ox Oxygen Delivery Method Room Air Room Air Room Air Positive well nourished and well developed Constitutional Narrative: Patient is tachycardic with a rate of 123. Patient is very pale. General Appearance ED: well developed and pallor HEENT HEENT Narrative: Has atraumatic, cephalic. Ears normal. Nares patent. She has piercings of her nose Eyes PERRL and EOMs intact bilaterally General Eye ED: Yes pale conjunctiva; Negative for scleral icterus Neck no lymphadenopathy and no JVD Resp normal respiratory effort and clear to auscultation bilaterally Cardio regular rhythm, S1 normal heart sound, S2 normal heart sound and no murmurs Rate: tachycardic GI normal to inspection, nondistended, normoactive bowel sounds, non-tender, non-distended and no masses; Negative for hepatosplenomegaly Extremity Extremity Narrative: Patient has a few petechiae lower EXTR. Neuro oriented x3 and CN's II-XII intact bilaterally Sensorium / Orientation: alert Psych mental status grossly normal Skin no rashes o (more content not included)... Normal [facility] Erythrocyte distribution wid th ratioOrdered By: Nathen Piper on 01-11-2025 Erythrocyte distribution width (RBC) [Ratio] 15.9 % High 11.6-14.6 [facility] Erythrocyte distribution wid th standard deviationOrdered By: Nathen Piper on 01-11-2025 Erythrocyte distribution width (RBC) [Ratio] 54.8 fl High 35.1-43.9 [facility] Glomerular filtration rate ( GFR) estimation/1.73 sq m using serum, plasma, or whole bOrdered By: Nathenkwesi Piper on 01-11-2025 GFR/1.73 sq M.predicted among non-blacks MDRD (S/P/Bld) [Vol rate/Area] 82 mL/min/{1.73_m2} >60 [facility] Comment on above: mL/min/1.73m2 CKD-EP I Creatinine Equation (2020) Hematocrit Auto (Bld) [Volum e fraction]Ordered By: Nathen Piper on 01-11-2025 Hematocrit (Bld) [Volume fraction] 12.0 % Low 37-47 [facility] Hemoglobin measurementOrdere d By: Nathenkwesi Piper on 01-11-2025 Hemoglobin (Bld) [Mass/Vol] 4.0 g/dL Critically low 12.0-15.0 [facility] Comment on above: CRITICAL VALUE REEDER D TO JAMEY HERNANDEZ (ER)01/11/25 1153 Davide MilesRESULTS READ BACK BY SAME. L501.2276on 01-11-2025 Ionized Calcium 0.90 mmol/L Low 1.09-1.30 [facility] Comment on above: Performed By: #### L 501.2276 #### [facility] [address] [place], [place], [address] Laboratory - Chemistry and C hemistry - challengeOrdered By: Nathenkwesi Piper on 01-11-2025 AST [Catalytic activity/Vol] 14 U/L <32 [facility] MCV (mean corpuscular volume ) determinationOrdered By: Nathen Piper on 01-11-2025 MCV (RBC) [Entitic vol] 94.5 fL 81-99 [facility] Mean corpuscular hemoglobin (MCH) determinationOrdered By: Nathenkwesi Piper on 01-11-2025 MCH (RBC) [Entitic mass] 31.5 pg 27.0-32.0 [facility] Mean corpuscular hemoglobin concentration (MCHC) determinationOrdered By: Nathenkwesi Piper on 01-11-2025 MCHC (RBC) [Mass/Vol] 33.3 g/dL 32-36 [facility] Mean platelet volume determi nationOrdered By: Nathen Piper on 01-11-2025 Platelet mean volume (Bld) [Entitic vol] 11.2 fL 6.2-12.0 [facility] Platelet countOrdered By: Chavez Piper on 01-11-2025 Platelets (Bld) [#/Vol] 15 10*3/uL Critically low 150-450 [facility] Comment on above: CRITICAL VALUE REEDER D TO JAMEY HERNANDEZ (ER)01/11/25 1153 Davide Riojas.RESULTS READ BACK BY SAME. Potassium measurement (mass/ volume)Ordered By: Nathenkwesi Piper on 01-11-2025 Potassium (Unsp spec) [Mass/Vol] 3.0 mmol/L Low 3.3-5.1 [facility] RBC Auto (Bld) [#/Vol]Ordere d By: Nathen Piper on 01-11-2025 RBC (Bld) [#/Vol] 1.27 10*6/uL Low 4.2-5.4 [facility] Serum creatinine measurement (mass/volume)Ordered By: Nathen Piper on 01-11-2025 Creatinine [Mass/Vol] 0.93 mg/dL 0.70-1.20 [facility] Serum globulin measurementOr dered By: Nathen Piper on 01-11-2025 Globulin (S) [Mass/Vol] 2.8 g/dL 2.2-4.2 [facility] Serum glucose measurement (m ass/volume)Ordered By: Nathen Piper on 01-11-2025 Glucose [Mass/Vol] 86 mg/dL 70-99 [facility] Serum or plasma alanine quiros otransferase (ALT) measurementOrdered By: Nathen Piper on 01-11-2025 ALT [Catalytic activity/Vol] U/L <35 [facility] Serum or plasma albumin moose urement (mass/volume)Ordered By: Nathen Piper on 01-11-2025 Albumin [Mass/Vol] 2.5 g/dL Low 3.5-5.0 [facility] Serum or plasma albumin/glob ulin mass ratioOrdered By: Nathen Piper on 01-11-2025 Albumin/Globulin [Mass ratio] 0.9 {ratio} 0.9-2.4 [facility] Serum or plasma alkaline eleonora sphatase measurementOrdered By: [facility] 01-[facility] ALP [Catalytic activity/Vol] 84 U/L 35-104 [facility] Serum or plasma calcium moose urement (mass/volume)Ordered By: Nathen Piper on 01-11-2025 Calcium [Mass/Vol] 5.8 mg/dL Critically low 7.6-11.0 [facility] Comment on above: Critical Result(s) C alled at: 1235 01/11/2025 by: CONRADO PIERRE Results read back by same. Serum or plasma urea nitroge n measurement (mass/volume)Ordered By: [facility] 01-11-2025 Urea nitrogen [Mass/Vol] 8 mg/dL 4-19 [facility] Sodium levelOrdered By: [facility] 01-11-2025 Sodium [Moles/Vol] 135 mmol/L 133-145 [facility] Total proteinOrdered By: Nathen Piper on 01-11-2025 Protein [Mass/Vol] 5.3 g/dL Low 5.9-8.4 [facility] Type AND Screenon 01-11-2025 Ab SCREEN GEL Negative Normal [facility] Comment on above: Order Comment: A Performed By: #### L 100.0500, BTS, L100.4500, L500.4050 #### [facility] [address] [place], [address] White blood cell (WBC) count Ordered By: Nathenkwesi Piper on 01-11-2025 WBC (Bld) [#/Vol] 3.4 10*3/uL Low 4.4-11.0 [facility] CBC W Auto Differential pane l (Bld)on 01-10-2025 Basophils (Bld) [#/Vol] Normal [facility] Comment on above: Performed By: #### 5 7021-8 #### RADU Sánchez ([id number]) [facility] ([id number]) [address] [place] [address] Basophils/100 WBC (Bld) Normal [facility] Comment on above: Performed By: #### 5 7021-8 #### RADU Sánchez ([id number]) [facility] ([id number]) [address] [place] [address] Eosinophils (Bld) [#/Vol] [facility] Comment on above: Performed By: #### 5 7021-8 #### RADU Sánchez ([id number]) [facility] ([id number]) [address] [place] [address] Eosinophils/100 WBC (Bld) [facility] Comment on above: Performed By: #### 5 7021-8 #### RADU Sánchez ([id number]) [facility] ([id number]) [address] [place] [address] Erythrocyte distribution width (RBC) [Ratio] [facility] Comment on above: Result Comment: prob able contamination of IV fluid Performed By: #### 5 7021-8 #### RADU Sánchez ([id number]) [facility] ([id number]) [address] [place] [address] Hematocrit (Bld) [Volume fraction] [facility] Comment on above: Result Comment: prob able contamination of IV fluid Performed By: #### 5 7021-8 #### RADU Sánchez ([id number]) [facility] ([id number]) [address] [place] [address] Hemoglobin (Bld) [Mass/Vol] [facility] Comment on above: Result Comment: prob able contamination of IV fluid Performed By: #### 5 7021-8 #### RADU Sánchez ([id number]) [facility] ([id number]) [address] [place] [address] Immature granulocytes/100 WBC (Bld) [facility] Comment on above: Result Comment: prob able contamination of IV fluid Performed By: #### 5 7021-8 #### RADU Sánchez ([id number]) [facility] ([id number]) [address] [place] [address] Lymphocytes (Bld) [#/Vol] Normal [facility] Comment on above: Performed By: #### 5 7021-8 #### RADU Sánchez ([id number]) [facility] ([id number]) [address] [place] [address] Lymphocytes/100 WBC (Bld) Normal [facility] Comment on above: Performed By: #### 5 7021-8 #### RADU Sánchez ([id number]) [facility] ([id number]) [address] [place] [address] MCHC (RBC) [Mass/Vol] Normal [facility] Comment on above: Result Comment: prob able contamination of IV fluid Performed By: #### 5 7021-8 #### RADU Sánchez ([id number]) [facility] ([id number]) [address] [place] [address] MCV (RBC) [Entitic vol] Normal [facility] Comment on above: Result Comment: prob able contamination of IV fluid Performed By: #### 5 7021-8 #### RADU Sánchez ([id number]) [facility] ([id number]) [address] [place] [address] Monocytes (Bld) [#/Vol] Normal [facility] Comment on above: Performed By: #### 5 7021-8 #### RADU Sánchez ([id number]) [facility] ([id number]) [address] [place] [address] Monocytes/100 WBC (Bld) Normal [facility] Comment on above: Performed By: #### 5 7021-8 #### RADU Sánchez ([id number]) [facility] ([id number]) [address] [place] [address] Neutrophils (Bld) [#/Vol] Normal [facility] Comment on above: Performed By: #### 5 7021-8 #### RADU Sánchez ([id number]) [facility] ([id number]) [address] [place] [address] Neutrophils/100 WBC (Bld) Normal [facility] Comment on above: Performed By: #### 5 7021-8 #### RADU Sánchez ([id number]) [facility] ([id number]) [address] [place] [address] Platelets (Bld) [#/Vol] Normal [facility] Comment on above: Result Comment: prob able contamination of IV fluid Performed By: #### 5 7021-8 #### RADU Sánchez ([id number]) [facility] ([id number]) [address] [place] [address] RBC (Bld) [#/Vol] Normal [facility] Comment on above: Result Comment: prob able contamination of IV fluid Performed By: #### 5 7021-8 #### RADU Sánchez ([id number]) [facility] ([id number]) [address] [place] [address] WBC (Bld) [#/Vol] Normal [facility] Comment on above: Result Comment: prob able contamination of IV fluid Spoke with Mabel and Randee Performed By: #### 5 7021-8 #### RADU Sánchez ([id number]) [facility] ([id number]) [address] [place] [address] Proteinon 01-10-2025 Protein (24H U) [Mass/Vol] 57 mg/dL High 5-24 [facility] Comment on above: Performed By: #### 2 1482-5 #### RADU Sánchez ([id number]) XUAN Alex ([id number]) [facility] ([id number]) [address] [place] [address] [facility] ([facility]) [address] [place] [address] Protein (24H U) [Mass/Vol]on 01-10-2025 Collection duration (Unsp spec) 24 hrs Normal [facility] Comment on above: Performed By: #### 2 1482-5 #### RADU Sánchez ([id number]) XUAN AVELARER L ([id number]) [facility] ([id number]) [address] [place] [address] [facility] ([facility]) [id number] [place] [address] Creatinine (24H U) [Mass/Time] 0.44 g/24 h Low 0.67-1.59 [facility] Comment on above: Performed By: #### 2 1482-5 #### RADU Sánchez ([id number]) XUAN SCHMOEPIER L ([id number]) [facility] ([id number]) [address] [place] [id number] [facility] ([facility]) [id number] [place] [address] Creatinine (24H U) [Mass/Vol] 116.8 mg/dL Normal 20.0-320.0 [facility] Comment on above: Performed By: #### 2 1482-5 #### RADU Sánchez ([id number]) XUAN AVELARER L ([id number]) [facility] ([id number]) [address] [id number] [facility] ([facility]) [id number] [place] [address] [id number] Protein (24H U) [Mass/Time] 217 mg/24h High 0-149 [facility] Comment on above: Performed By: #### 2 1482-5 #### RADU Sánchez ([id number]) XUAN AVELARER Abi ([id number]) [facility] ([id number]) [address] [place] [address] [facility] ([facility]) [id number] [place] [address] [id number] Specimen volume (24H U) 0.38 L Normal U [facility] Comment on above: Performed By: #### 2 1482-5 #### RADU Sánchez ([id number]) XUAN AVELARER L ([id number]) [facility] ([id number]) [address] [place] [address] [facility] ([facility]) [address] [place] [address] Vital Signs Date Time Vital Sign Value Performing Clinician Facility 02-03-2025 19:00-0500 Diastolic blood pressure 77 mm[Hg] Margarita Das MD Work Phone: [facility] 02-03-2025 19:00-0500 Heart rate 107 /min Margarita Das MD Work Phone: [facility] 02-03-2025 19:00-0500 SaO2% (BldA) [Mass fraction] 95 % Margarita Das MD Work Phone: [facility] 02-03-2025 19:00-0500 Systolic blood pressure 116 mm[Hg] Margarita Das MD Work Phone: [facility] 02-03-2025 18:05-0500 Body temperature 98.6 [degF] Margarita Das MD Work Phone: [facility] 02-03-2025 18:05-0500 Respiratory rate 19 /min Margarita Das MD Work Phone: [facility] 02-03-2025 10:54-0500 Body height 160 cm Margarita Das MD Work Phone: [facility] 02-03-2025 10:54-0500 Body mass index (BMI) [Ratio] 17.71 kg/m2 Margarita Das MD Work Phone: [facility] 02-03-2025 10:54-0500 Body weight 45.36 kg Margarita Das MD Work Phone: [facility] 01-30-2025 14:32-0500 Body height 160 cm Carmina Dumont MD Work Phone: [facility] 01-30-2025 14:32-0500 Body mass index (BMI) [Ratio] 18.6 kg/m2 Carmina Dumont MD Work Phone: [facility] 01-30-2025 14:32-0500 Body temperature 97.2 [degF] Carmina Dumont MD Work Phone: [facility] 01-30-2025 14:32-0500 Body weight 47.63 kg Carmina Dumont MD Work Phone: [facility] 01-30-2025 14:32-0500 Diastolic blood pressure 82 mm[Hg] Carmina Dumont MD Work Phone: [facility] 01-30-2025 14:32-0500 Heart rate 130 /min Carmina Dumont MD Work Phone: [facility] 01-30-2025 14:32-0500 Systolic blood pressure 108 mm[Hg] Carmina Dumont MD Work Phone: [facility] 01-19-2025 08:33-0400 Body mass index (BMI) [Ratio] 19.66 kg/m2 Charan Jenkins MD, MS Work Phone: [facility] 01-19-2025 08:33-0400 Body temperature 97.3 [degF] Charan Jenkins MD, MS Work Phone: [facility] 01-19-2025 08:33-0400 Body weight 50.35 kg Charan Jenkins MD, MS Work Phone: [facility] 01-19-2025 08:33-0400 Diastolic blood pressure 89 mm[Hg] Charan Jenkins MD, MS Work Phone: [facility] 01-19-2025 08:33-0400 Heart rate 118 /min Charan Jenkins MD, MS Work Phone: [facility] 01-19-2025 08:33-0400 Respiratory rate 20 /min Charan Jenkins MD, MS Work Phone: [facility] 01-19-2025 08:33-0400 SaO2% (BldA) [Mass fraction] 97 % Charan Jenkins MD, MS Work Phone: [facility] 01-19-2025 08:33-0400 Systolic blood pressure 119 mm[Hg] Charan Jenkins MD, MS Work Phone: [facility] 01-17-2025 10:47-0400 Body height 160 cm Carmina Dumont MD Work Phone: [facility] 01-17-2025 10:47-0400 Body mass index (BMI) [Ratio] 18.6 kg/m2 Carmina Dumont MD Work Phone: [facility] 01-17-2025 10:47-0400 Body temperature 98.71 [degF] Carmina Dumont MD Work Phone: [facility] 01-17-2025 10:47-0400 Body weight 47.63 kg Carmina Dumont MD Work Phone: [facility] 01-17-2025 10:47-0400 Diastolic blood pressure 79 mm[Hg] Carmina Dumont MD Work Phone: [facility] 01-17-2025 10:47-0400 Heart rate 122 /min Carmina Dumont MD Work Phone: [facility] 01-17-2025 10:47-0400 Systolic blood pressure 109 mm[Hg] Carmina Dumont MD Work Phone: [facility] 01-11-2025 19:59-0400 Body temperature 98.4 [degF] Dr. Nathen Piper MD Work Phone: [facility] 01-11-2025 19:59-0400 Diastolic blood pressure 82 mm[Hg] Dr. Nathen Piper MD Work Phone: [facility] 01-11-2025 19:59-0400 Heart rate 98 /min Dr. Nathen Piper MD Work Phone: [facility] 01-11-2025 19:59-0400 Respiratory rate 21 /min Dr. Nathen Piper MD Work Phone: [facility] 01-11-2025 19:59-0400 SaO2% (BldA) [Mass fraction] 98 % Dr. Nathen Piper MD Work Phone: [phone])[phone] [place] [address] 01-11-2025 19:59-0400 Systolic blood pressure 105 mm[Hg] Dr. Nathen Piper MD Work Phone: 8(098)[phone] [place] [address] 01-11-2025 11:56-0400 Body mass index (BMI) [Ratio] 19.5 kg/m2 Dr. Nathen Piper MD Work Phone: 8(134)[phone] [place] [address] 01-11-2025 11:56-0400 Body weight [address] Nathen Piper MD Work Phone: [facility] 01-11-2025 10:58-0400 Body height 160.[address] Nathen Piper MD Work Phone: [facility] 12-22-2024 12:59-0400 Body temperature 97.7 [degF] Charan Jenkins MD, MS Work Phone: [facility] 12-22-2024 12:59-0400 Body weight 54.43 kg Charan Jenkins MD, MS Work Phone: [facility] 12-22-2024 12:59-0400 Diastolic blood pressure 88 mm[Hg] Charan Jenkins MD, MS Work Phone: [facility] 12-22-2024 12:59-0400 Heart rate 122 /min Charan Jenkins MD, MS Work Phone: [facility] 12-22-2024 12:59-0400 Respiratory rate 18 /min Charan Jenkins MD, MS Work Phone: [facility] 12-22-2024 12:59-0400 SaO2% (BldA) [Mass fraction] 94 % Charan Jenkins MD, MS Work Phone: [facility] 12-22-2024 12:59-0400 Systolic blood pressure 115 mm[Hg] Charan Jenkins MD, MS Work Phone: [facility] Encounters Encounter Date Encounter Type Care Provider Facility Start: 02-08-2025 End: 02-08-2025 ambulatory [facility] Start: 02-07-2025 End: 02-07-2025 ambulatory [facility] Start: 02-03-2025 End: 02-03-2025 Emergency department patient visit Margarita Das MD Work Phone: [facility] Comment on above: Anemia, unspecified type (Primary Dx); Thrombocytopenia Start: 02-03-2025 End: 02-03-2025 ambulatory [facility] Start: 02-02-2025 End: 02-02-2025 Office outpatient visit 40 minutes Charan Jenkins MD, MS Work Phone: [facility] Comment on above: Malignant neoplasm o f exocervix (Multi) (Primary Dx); Chemotherapy-induced nausea; Encounter for antineoplastic chemotherapy; Chemotherapy-induced neuropathy (HHS-HCC); Anemia in neoplastic disease; Thrombocytopenia Start: 02-02-2025 End: 02-02-2025 ambulatory [facility] Start: 01-30-2025 End: 01-30-2025 Office outpatient visit 25 minutes Carmina Dumont MD Work Phone: [facility] Comment on above: 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 Start: 01-19-2025 End: 01-19-2025 Office outpatient visit 40 minutes Charan Jenkins MD, MS Work Phone: [facility] Comment on above: Malignant neoplasm o f exocervix (Multi) (Primary Dx); Cancer related pain; Encounter for antineoplastic chemotherapy; Chemotherapy-induced nausea; Chemotherapy-induced neuropathy (HHS-HCC); Anemia in neoplastic disease Start: 01-19-2025 End: 01-19-2025 ambulatory [facility] Start: 01-17-2025 End: 01-17-2025 Office outpatient new 45 minutes Carmina Dumont MD Work Phone: [facility] Comment on above: 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 Start: 01-16-2025 End: 01-16-2025 ambulatory [facility] Start: 01-11-2025 End: 01-11-2025 Emergency department patient visit SEJAL TRISHAAndrzej STOCK [facility] Start: 01-10-2025 End: 01-10-2025 ambulatory [facility] Start: 01-05-2025 End: 01-05-2025 ambulatory [facility] Start: 12-29-2024 End: 12-29-2024 ambulatory [facility] Start: 12-22-2024 End: 12-22-2024 Office outpatient visit 40 minutes Charan Jenkins MD, MS Work Phone: [facility] Comment on above: Malignant neoplasm o f exocervix (Multi) (Primary Dx) Start: 12-22-2024 End: 12-22-2024 ambulatory [facility] Procedures Date Procedure Procedure Detail Performing Clinician Start: 02-03-2025 Blood count complete automated Apolinar Villanueva DO Work Phone: Start: 02-03-2025 End: 02-03-2025 TRANSFUSE RED BLOOD CELLS Apolinar Villanueva DO Work Phone: Start: 02-03-2025 PREPARE RBC Margarita Das MD Work Phone: Start: 02-03-2025 End: 02-03-2025 TRANSFUSE RED BLOOD CELLS Apolinar Villanueva DO Work Phone: Start: 02-03-2025 End: 02-03-2025 TRANSFUSE PLATELETS Apolinar Villanueva DO Work Phone: Start: 02-03-2025 Prothrombin time Apolinar herrmann DO Work Phone: Start: 02-03-2025 VERAB/VERIFY ABORH Heather Das MD Work Phone: Start: 02-03-2025 Blood typing serolog ic rh (d) Apolinar Villanueva DO Work Phone: Start: 02-03-2025 Comprehensive metabo lic panel Apolinar Villanueva DO Work Phone: Start: 02-03-2025 PREPARE PLATELETS Apolinar Villanueva DO Work Phone: Start: 02-03-2025 PREPARE RBC Apoilnar ny DO Work Phone: Start: 01-17-2025 Bacteria identified in Urine by Culture Carmina Dumont MD Work Phone: Start: 01-17-2025 Urnls dip stick/tabl et rgnt auto w/o microscopy Camrina Dumont MD Work Phone: Start: 01-11-[address] Nathen Piper MD Work Phone: Start: 01-11-[address] Nathen Piper MD Work Phone: Plan of Treatment Date Care Activity Detail Author Start: 07-17-2039 Zoster Vaccines (1 of 2) Zoster Vacc donald (1 of 2) [facility] Start: 05-04-2025 End: 05-04-2025 Patient encounter procedure 05/04/2025 1:15 PM EST Office Visit [facility] [address] [facility] [address] [place] [phone] Carmina Dumont MD [address] [facility] [address] [place] [address] [facility] 1 Start: 05-02-2025 End: 05-02-2025 Patient encounter procedure 05/02/2025 1:00 PM EST Appointment [facility] [address] [place] [address] [facility] Start: 02-24-2025 End: 02-24-2025 ambulatory 02/24/2025 2:30 PM EST Infusion [facility] [address] [place] [address] [facility] Start: 02-16-2025 End: 02-16-2025 ambulatory 02/16/2025 8:30 AM EST Infusion [facility] [address] [place] [address] [facility] Start: 02-09-2025 End: 02-09-2025 ambulatory 02/09/2025 11:30 AM EST Infusion [facility] [address] [place] [address] [facility] Start: 02-09-2025 End: 02-09-2025 Patient encounter procedure 02/09/2025 11:20 AM EST Office Visit [facility] [address] [place] [phone] [place] [address] [place] [address] [facility] Start: 02-07-2025 End: 02-07-2025 ambulatory 02/07/2025 7:30 AM EST Infusion [facility] [address] [place] [address] [facility] Start: 02-03-2025 End: 02-03-2025 ambulatory 02/03/2025 9:30 AM EST Infusion [facility] [address] [place] [address] [facility] Start: 02-02-2025 End: 02-02-2026 CT Chest and Abdomen and Pelvis W contrast IV CT chest abdomen pelvis w IV contrast Imaging Routine Malignant neoplasm of exocervix (Multi) Expected: 02/02/2025, Expires: 02/02/2026 [facility] Service Area Work Phone: Comment on above: Expected: 02/02/2025 , Expires: 02/02/2026 Start: 01-30-2025 End: 01-30-2026 US Kidney - bilateral and Urinary bladder US renal complete Imaging Routine Hydronephrosis due to obstruction of ureter Expected: 01/30/2025, Expires: 01/30/2026 [facility] Service Area Work Phone: Comment on above: Expected: 01/30/2025 , Expires: 01/30/2026 Start: 01-26-2025 End: 01-26-2025 ambulatory 01/26/2025 10:00 AM EDT Infusion [facility] [address] [place] [address] [facility] Start: 01-24-2025 End: 01-24-2025 Patient encounter procedure 01/24/2025 9:30 AM EDT Procedure Visit [place] [address] [address] [facility] 1 [facility] [address] [place] [phone] Carmina Dumont MD [address] [facility] [address] [place] [address] [facility] 1 Start: 01-11-2025 [facility] Start: 01-11-2025 End: 01-11-2025 Administration of blood product [facility] Start: 11-28-2024 Influenza vaccination Influenza Vacc ine (#1) [facility] Start: 10-28-2024 Influenza vaccination Influenza Vacc ine (#1) [facility] Start: 2016 HPV Vaccines (1 - 3- dose standard series) HPV Vaccines (1 - 3-dose standard series) [facility] Start: 2010 Screening for malign ant neoplasm of cervix [facility] Start: 07-17-2007 Hepatitis C screening Hepatitis C [facility] Start: 2000 DTaP/Tdap/Td Vaccine s (6 - Tdap) DTaP/Tdap/Td Vaccines (6 - Tdap) [facility] Start: 1994 COVID-19 Vaccine (#1) COVID-19 Vacci ne (#1) [facility] Start: 1989 HIV screening HIV Screening [facility] Start: 1989 Lipid panel Lipid Panel [facility] Start: 1989 Yearly Adult Physical Yearly Adult P hysical [facility] End: 02-03-2025 ECG 12 lead [facility] Service Area Work Phone: Comment on above: Once for 1 Occurrenc es starting 02/03/2025 until 02/03/2025 Patient Education Blood Transfus ion Adult Dc [facility] Work Phone: End: 02-03-2025 Reticulocytes panel - Blood Reticulocytes Lab Add-On STAT (Lab) for 1 Occurrences starting 02/03/2025 until 02/03/2025 [facility] Work Phone: Comment on above: STAT (Lab) for 1 Occ urrences starting 02/03/2025 until 02/03/2025 Immunizations Immunization Date Immunization Notes Care Provider Delfino siddiqui 12-23-2015 influenza, injectabl e, quadrivalent, preservative free Charan Jenkins MD, MS Work Phone: [facility] Work Phone: 12-23-2015 influenza virus vaccine, unspecified formulation Charan Jenkins MD, MS Work Phone: [facility] Work Phone: 12-13-2014 influenza, seasonal, injectable, preservative free Charan Jenkins MD, MS Work Phone: [facility] Work Phone: 10-31-2013 hepatitis B vaccine, adult dosage Charan Jenkins MD, MS Work Phone: [facility] Work Phone: 07-29-2013 hepatitis B vaccine, adult dosage Charan Jenkins MD, MS Work Phone: [facility] Work Phone: 11-01-2001 hepatitis B vaccine, pediatric or pediatric/adolescent dosage Charan Jenkins MD, MS Work Phone: [facility] Work Phone: 07-02-1994 diphtheria, tetanus toxoids and acellular pertussis vaccine, unspecified formulation Charan Jenkins MD, MS Work Phone: [facility] Work Phone: 07-02-1994 measles, mumps and rubella virus vaccine Charan Jenkins MD, MS Work Phone: [facility] Work Phone: 07-02-1994 trivalent poliovirus vaccine, live, oral Charan Jenkins MD, MS Work Phone: [facility] Work Phone: 07-27-1991 diphtheria, tetanus toxoids and acellular pertussis vaccine, unspecified formulation Charan Jenkins MD, MS Work Phone: [facility] Work Phone: 07-27-1991 trivalent poliovirus vaccine, live, oral Charan Jenkins MD, MS Work Phone: [facility] Work Phone: 12-07-1990 hepatitis B vaccine, pediatric or pediatric/adolescent dosage Charan Jenkins MD, MS Work Phone: [facility] Work Phone: 12-07-1990 measles, mumps and rubella virus vaccine Charan Jenkins MD, MS Work Phone: [facility] Work Phone: 03-02-1990 diphtheria, tetanus toxoids and pertussis vaccine Charan Jenkins MD, MS Work Phone: [facility] Work Phone: 03-02-1990 hepatitis B vaccine, pediatric or pediatric/adolescent dosage Charan Jenkins MD, MS Work Phone: [facility] Work Phone: 1989 diphtheria, tetanus toxoids and pertussis vaccine Charan Jenkins MD, MS Work Phone: [facility] Work Phone: 1989 trivalent poliovirus vaccine, live, oral Charan Jenkins MD, MS Work Phone: [facility] Work Phone: 1989 diphtheria, tetanus toxoids and pertussis vaccine Charan Jenkins MD, MS Work Phone: [facility] Work Phone: 1989 trivalent poliovirus vaccine, live, oral Charan Jenkins MD, MS Work Phone: [facility] Payers Date Payer Category Payer Self-pay [id number] 2024 Medicaid MEDICAID [id number] 2024 Medicaid [id number] 1989 Unknown [id number] 1989 Unknown [id number] 1989 Unknown [id number] 1989 Unknown [id number] 1989 Unknown [id number] 1989 Unknown [id number] 1989 Unknown [id number] 1989 Unknown [id number] 1989 Unknown [id number] 1989 Unknown [id number] 1989 Unknown [id number] 1989 Unknown [id number] 1989 Unknown [id number] Unknown [id number] Unknown [id number] Social History Date Type Detail Facility Start: 12-22-2024 End: 01-11-2025 Tobacco smoking status NHIS Never smoked tobacco [facility] Work Phone: Start: 12-22-2024 Tobacco use and exposure Smokeless tobacco non-user [facility] Work Phone: Start: 12-22-2024 End: 01-30-2025 Alcoholic beverage intake Lifetime non-drinker (finding) [facility] Work Phone: Start: 12-22-2024 End: 01-17-2025 History of Social function [facility] Start: 12-22-2024 End: 01-17-2025 Tobacco use panel [facility] Start: 1990 Sex assigned at Not on file [facility] Work Phone: Start: 02-21-2022 Sex Female [facility] Tobacco smoking status [facility] Start: 1990 Sex Assigned At Female [facility] Start: 02-21-2022 End: 01-11-2025 Sex Female (finding) [facility] Functional Status Date Assessment Result Facility 02-03-2025 [place] - 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 - recent [C-SSRS] [facility] Work Phone: 02-03-2025 Functional status [facility] Work Phone: 02-03-2025 [facility] 02-02-2025 Functional status [facility] 02-02-2025 [facility] Work Phone: 01-30-2025 Functional status 108/82 [facility] Work Phone: 01-30-2025 Vital signs 130 01/30/2025 2 :32 PM EST Judy Dsouza MA [facility] Work Phone: 01-30-2025 [facility] Work Phone: 01-19-2025 Functional status 119/89 [facility] Work Phone: 01-19-2025 Vital signs 118 01/19/2025 8 :33 AM EDT Karen Covington MA [facility] Work Phone: 01-19-2025 [facility] Work Phone: 01-17-2025 Patient Health Quest ionnaire 2 item (PHQ-2) [Reported] [facility] Work Phone: 12-22-2024 Functional status 115/88 [facility] Work Phone: 12-22-2024 Vital signs 122 12/22/2024 1 2:59 PM EDT Karen Covington MA [facility] Work Phone: 12-22-2024 [facility] Work Phone: [facility] Work Phone: Mental Status Date Assessment Result Facility 01-11-2025 Cognitive function Level Of Consciousness Awake [facility] Work Phone: Clinical Notes 12-22-2024 to 02-03-2025 Discharge InstructionsCassandra Bonds - 02/03/2025 1:16 PM MARYCHUY Higuera - 02/03/2025 12:00 PM MARYCHUY Higuera - 02/03/2025 12:00 PM EST Note Date & Type Note Facility 02-03-2025 Hospital Discharge instructions Apolinar Villanueva DO - 02/03/2025 6:46 PM EST You were seen and evaluated here in the emergency department for anemia and thrombocytopenia. Please return to the ED if there are any further concerns for weakness, bleeding, fevers, uncontrolled nausea/vomiting. Please follow-up with your primary care and oncology team as soon as you are able. documented in this encounter [facility] Work Phone: 02-03-2025 History of Present illness Narrative Pharmacy Medication History Source of Information: PATIENT Additional concerns with the patient's [employer]PAR[employer] list. Notified Provider via Haiku : Yes The following updates were made to the Prior to Admission medication list: Medications ADDED: N/A Medications CHANGED: N/A Medications REMOVED: BACTRIM DS 800-160 MG TAB Medications NOT TAKING: BACTRIM DS 800-160 MG TAB Allergy reviewed : Yes Meds 2 Beds : No Outpatient pharmacy confirmed and updated in chart : Yes Pharmacy name: [facility] [id number] [place], [place] The list below reflectives the updated [employer] list. Please review each medication in order reconciliation for additional clarification and justification. Prior to Admission Medications Prescriptions Last Dose LORazepam (Ativan) 0.5 mg tablet 02/03/2025 Morning Sig: Take 1 tablet (0.5 mg) by mouth every 6 hours if needed for anxiety. oxyCODONE (Oxy-IR) 5 mg immediate release capsule 02/03/2025 Morning Sig: Take 1 capsule (5 mg) by mouth every 6 hours if needed for severe pain (7 - 10). pantoprazole (ProtoNix) 40 mg EC tablet 02/03/2025 Morning Sig: Take 1 tablet (40 mg) by mouth once daily in the morning. Take before meals. Do not crush, chew, or split. prochlorperazine (Compazine) 5 mg tablet Sig: Take 1 tablet (5 mg) by mouth every 6 hours if needed for nausea or vomiting for up to 7 days. Facility-Administered Medications: None The list below reflectives the updated allergy list. Please review each documented allergy for additional clarification and justification. No Known Allergies 02/03/25 at 1:14 PM - Cassandra Bonds documented in this encounter [facility] Work Phone: 02-03-2025 Emergency department Note Community Resource Name: Patient given a list of primary care physicians. Phone Number: Staff Member: Maxine Gloria Discussed the following topics on behalf of the patient: [] Behavioral Health Assistance [] Case Management [] Project Builder Assistance [] Digital Equity Assistance [] Dental Health Assistance [] Education Assistance [] Employment Assistance [] Financial Strain Relief Assistance [] Food Insecurity Assistance [x] Healthcare Coverage Assistance [] Housing Stability Assistance [] IP Violence Relief Assistance [] Legal Assistance [] Physical Activity Assistance [] Social Connection Assistance [] Stress Relief Assistance [] Substance Abuse Assistance [] Transportation Assistance [] Utility Assistance [x] Other: [insert comment here] Patient doesn't have a PCP. Next Steps: MARYCHUY Perez Track patients for community healthcare services. CHW talked to patient and parents, at the bedside, regarding not having a primary care physician. CHW asked the patient if she would be interested in looking at a list of physicians to choose from for future services. Patient agreed and was given a list of physicians, they are accepting new patients, they are taking her insurance(Medicaid), and they are in the area where she lives. Patient and parents expressed appreciation. MARYCHUY Perez 02/03/25 1238 [facility] 02-03-2025 Emergency department Note Community Resource Name: Patient given a list of primary care physicians. Phone Number: Staff Member: Maxine Gloria Discussed the following topics on behalf of the patient: [] Behavioral Health Assistance [] Case Management [] Project Builder Assistance [] Digital Equity Assistance [] Dental Health Assistance [] Education Assistance [] Employment Assistance [] Financial Strain Relief Assistance [] Food Insecurity Assistance [x] Healthcare Coverage Assistance [] Housing Stability Assistance [] IP Violence Relief Assistance [] Legal Assistance [] Physical Activity Assistance [] Social Connection Assistance [] Stress Relief Assistance [] Substance Abuse Assistance [] Transportation Assistance [] Utility Assistance [x] Other: [insert comment here] Patient doesn't have a PCP. Next Steps: MARYCHUY Perez Track patients for community healthcare services. CHW talked to patient and parents, at the bedside, regarding not having a primary care physician. CHW asked the patient if she would be interested in looking at a list of physicians to choose from for future services. Patient agreed and was given a list of physicians, they are accepting new patients, they are taking her insurance(Medicaid), and they are in the area where she lives. Patient and parents expressed appreciation. MARYCHUY Perez 02/03/25 1238 Patient to ED for blood transfusion. Patient reports just being at cancer center and was told her hemoglobin was low and Platelets are low. documented in this encounter [facility] Work Phone: 02-03-2025 Emergency department Triage note Patient to ED for blood transfusion. Patient reports just being at cancer center and was told her hemoglobin was low and Platelets are low. [facility] Work Phone: 02-02-2025 History of Present illness Narrative Patient ID: Jessica Mensah is a 34 y.o. female. Referring Physician: No referring provider defined for this encounter. Primary Care Provider: No Assigned PCP Generic Provider, Virtual or Telephone Consent An interactive audio and video telecommunication system which permits real time communications between the patient (at the originating site) and provider (at the distant site) was utilized to provide this telehealth service. Verbal consent was requested and obtained from Jessica Mensah on this date, 02/01/25 for a telehealth visit and the patient's location was confirmed at the time of the visit. Subjective HPI Patient is a 34 y.o. 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 Accompanied by mother. Interval History: Mucositis worse this cycle, nausea remains persistent, weakness ongoing. Appetite poor secondary to nausea and lack of hunger. Feels like she might need a blood transfusion or platelet transfusion. She does not think she wants to carry on with chemotherapy, but is interested in continuing avastin. Cancer Care - Patient was diagnosed with SCC in 2023. - Underwent chemo/immuno RT - Recurrence in April of 2024. Subsequent CT showed mets to peritoneal tissue, accompanied by severe ascites. - Received RT to periportal region - 09/2024 started carbo/taxol/avastin She came back home to [place] after cervical cancer recurrence. Deny fever, chills, constipation, diarrhea, vaginal bleeding, abdominal pain. She is able to eat but endorses some loss of appetite. Patient also endorses some moderate neuropathic pain in the fingers and toes. Patient feels that her nausea is well controlled. PMH: SCC, acute renal failure, hydronephrosis PSH: breast augmentation procedure Social: They deny alcohol, tobacco, and recreational drug use. The patient lives at home with parents. 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 She wanted to live with her parents during this time. No difficulty with transportation access. FamHx: Their history is otherwise negative for a history of breast, ovarian, uterine, colon, pancreatic, and GI cancer. Objective Vitals: BP: 115/88 HR: 122: SpO2: 94% resp: 18 Physical Exam No visits with results within 1 Week(s) from this visit. Latest known visit with results is: Infusion on 01/19/2025 Component Date Value Ref Range Status WBC 01/19/2025 3.0 (L) 4.4 - 11.3 x10*3/uL Final RBC 01/19/2025 3.18 (L) 4.00 - 5.20 x10*6/uL Final Hemoglobin 01/19/2025 9.8 (L) 12.0 - 16.0 g/dL Final Hematocrit 01/19/2025 29.6 (L) 36.0 - 46.0 % Final MCV 01/19/2025 93 80 - 100 fL Final MCH 01/19/2025 30.8 26.0 - 34.0 pg Final MCHC 01/19/2025 33.1 32.0 - 36.0 g/dL Final RDW 01/19/2025 15.3 (H) 11.5 - 14.5 % Final Platelets 01/19/2025 94 (L) 150 - 450 x10*3/uL Final Neutrophils % 01/19/2025 64.2 40.0 - 80.0 % Final Immature Granulocytes %, Automated 01/19/2025 0.3 0.0 - 0.9 % Final Immature Granulocyte Count (IG) includes promyelocytes, myelocytes and metamyelocytes but does not include bands. Percent differential counts (%) should be interpreted in the context of the absolute cell counts (cells/UL). Lymphocytes % 01/19/2025 19.9 13.0 - 44.0 % Final Monocytes % 01/19/2025 14.6 2.0 - 10.0 % Final Eosinophils % 01/19/2025 0.7 0.0 - 6.0 % Final Basophils % 01/19/2025 0.3 0.0 - 2.0 % Final Neutrophils Absolute 01/19/2025 1.93 1.20 - 7.70 x10*3/uL Final Percent differential counts (%) should be interpreted in the context of the absolute cell counts (cells/uL). Immature Granulocytes Absolute, Au* 01/19/2025 0.01 0.00 - 0.70 x10*3/uL Final Lymphocytes Absolute 01/19/2025 0.60 (L) 1.20 - 4.80 x10*3/uL Final Monocytes Absolute 01/19/2025 0.44 0.10 - 1.00 x10*3/uL Final Eosinophils Absolute 01/19/2025 0.02 0.00 - 0.70 x10*3/uL Final Basophils Absolute 01/19/2025 0.01 0.00 - 0.10 x10*3/uL Final Oncology History Overview Note - Patient was diagnosed with SCC in 2023. - Underwent chemo/immuno RT - Recurrence in April of 2024. Subsequent CT showed mets to peritoneal tissue, accompanied by severe ascites. 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 with a history of recurrent squamous cell carcinoma of the cervix coming in to establish care. # Cervical cancer, recurrent - S/p ChemoRT with A18 regimen, recurrence in 04/2024 with RT to ela hepatis - Currently being treated with carbo/taxol/avastin, planning to drop carbo/taxol secondary to toxicity - Has been tracking signatera with prior oncologist, will continue to trend - Does not tolerate magnesium - Plan for avastin alone, next treatment 02/09/25 - CT after next cycle # Proteinuria - 2+ on last urinalysis - Will need a 24h urine protein prior to next cycle (pending) # Chemo-induced nausea - Managed with weekly Aloxi # CIPN - Mild, not currently medicated for this # Hydronephrosis - stent and nephrostomy tube for hydronephrosis and malignant ureteral obstruction - nephrostomy tube was taken out as per request from the patient - seeing urology I spent 8 minutes virtually or in a telephone with this patient and/or family. More than 50% of the time was spent in counseling and/or coordination of care. documented in this encounter [facility] Work Phone: 01-30-2025 History of Present illness Narrative Chief complaint: Follow-up (Stent removal) Referring physician: No ref. provider found SUBJECTIVE: HPI: Jessica Mensah is a 34 y.o. female with a history of hydronephrosis, exocervical cancer who presents stent removal. 01/30/25 - Stent removal today. Rescheduled as was not feeling well on original date. Took 3 doses of Bactrim. Emesis with Bactrim x1, does not think related to med. 01/17/25 - She is here to discuss possible stent removal. She recently moved back from [place], and has a history of cervical cancer, which is now resolved. In October, following an increase in her Cr level to 8, she underwent placement of bilateral ureteral stents. When her creatinine did not improve, the stents were checked and found to be in the correct position. The decision was then made to place a right nephrostomy tube, which later began to leak and was ultimately removed in Nov under fluoroscopy with IR. Currently, the patient is undergoing carboplatin chemotherapy for a peritoneal mass and radiation therapy. Her previous urinary sxs have included frequency, burning, and UUI, and she has experienced fever with past UTIs. Has ongoing significant urinary discomfort from the stents. She would like to have them removed. Reviewed imaging from [place]. 10/20/24 CT bl hydro without clear transition point, no stones. 11/01 CT interval bl stents, resolution of L hydro, persistent R hydro. 11/03 IR R PCN placed. 11/05 CT Malpositioned R PCN 11/05 IR replaced R PCN 12/06 IR R PCN removed, good drainage of contrast down to bladder along stent Medical history: has no past medical history on file. Surgical history: has no past surgical history on file. Family history: family history is not on file. Social history: reports that she has never smoked. She has never used smokeless tobacco. She reports that she does not drink alcohol and does not use drugs. Medications: Current Outpatient Medications Medication Instructions dexAMETHasone (DECADRON) 8 mg, oral, Daily, Start the day after chemotherapy. LORazepam (ATIVAN) 0.5 mg, oral, Every 6 hours PRN oxyCODONE (OXY-IR) 5 mg, oral, Every 6 hours PRN pantoprazole (PROTONIX) 40 mg, oral, Daily before breakfast, Do not crush, chew, or split. prochlorperazine (COMPAZINE) 5 mg, oral, Every 6 hours PRN sulfamethoxazole-trimethoprim (Bactrim DS) 800-160 mg tablet 1 tablet, oral, 2 times daily Allergies: RX Allergies[1] ROS: 14-point review of systems negative except as noted above. OBJECTIVE: Visit Vitals BP 108/82 Pulse (!) 130 Temp 36.2 C (97.2 F) Body mass index is 18.6 kg/m . Physical exam General: No acute distress HEENT: EOMI CV: Regular rate Pulm: Nonlabored respirations Abd: Soft, non-distended : No suprapubic or CVA tenderness MSK: No contractures Neuro: Motor intact Psych: Appropriate affect Labs: Lab Results Component Value Date WBC 3.0 (L) 01/19/2025 HGB 9.8 (L) 01/19/2025 HCT 29.6 (L) 01/19/2025 PLT 94 (L) 01/19/2025 ALT 3 (L) 01/16/2025 AST 12 01/16/2025 NA 137 01/16/2025 K 3.3 (L) 01/16/2025 CL 101 01/16/2025 CREATININE 0.63 01/16/2025 BUN 8 01/16/2025 CO2 25 01/16/2025 CULTURE, URINE, ROUTINE (no units) Date Value 01/17/2025 SEE NOTE No results found for: PSA Imaging: All imaging discussed in HPI was independently reviewed. PROCEDURE NOTE - CYSTOSCOPY, STENT REMOVAL: The patient was brought into the procedure suite and informed consent was reviewed and confirmed. The patient was escorted onto the stretcher, placed supine, prepped with betadine and draped in the usual fashion. Intraurethral 2% viscous lidocaine jelly was used for local analgesia. A 16 Congolese flexible cystourethroscope was inserted per urethra. Stent visualized and secured with graspers. Stent and scope removed. Stent noted to be intact. This concluded the procedure which the patient tolerated well. Patient was cleaned and dried. ASSESSMENT: Hydronephrosis due to malignant obstruction now s/p bl stent removal Discussed again no way to predict if will have recurrent obstruction, which may present with infection or renal insufficiency. She remained interested in removing stents. Will monitor with 3-month interval renal US to assess for development of hydronephrosis. PLAN: Sent another 3 doses of Bactrim to cover today & tomorrow for ppx Monitor for UTI, flank pain, rising Cr LA NENA in 3 months Follow-up with me after U/s Problem List Items Addressed This Visit None Visit Diagnoses Hydronephrosis due to obstruction of ureter Relevant Medications sulfamethoxazole-trimethoprim (Bactrim DS) 800-160 mg tablet Other Relevant Orders US renal complete Opemipkwesi Bolanos I, Charles Aleman attest that this documentation has been prepared under the direction and in the presence of Dr. Carmina Dumont I examined the patient and agree with the assessment and plan above. Carmina Dumont MD [1] No Known Allergies documented in this encounter [facility] Work Phone: 01-19-2025 History of Present illness Narrative Patient ID: Jessica Mensah is a 34 y.o. female. Referring Physician: [place] [address] [place] [address] Primary Care Provider: No Assigned PCP Generic Provider, Subjective HPI Patient is a 34 y.o. 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 Accompanied by mother. Interval History: She has recurrent symptomatic anemia. She typically feels symptomatic when her hemoglobin is around 4. Pt does need a refill of Oxycodone. She's had an increase in her nausea recently and hasn't gotten her Aloxi recently. Urology is removing her stent next week. She has intermittent swelling of her feet. Cancer Care - Patient was diagnosed with SCC in 2023. - Underwent chemo/immuno RT - Recurrence in April of 2024. Subsequent CT showed mets to peritoneal tissue, accompanied by severe ascites. - Received RT to periportal region - 09/2024 started carbo/taxol/avastin She came back home to [place] after cervical cancer recurrence. Deny fever, chills, constipation, diarrhea, vaginal bleeding, abdominal pain. She is able to eat but endorses some loss of appetite. Patient also endorses some moderate neuropathic pain in the fingers and toes. Patient feels that her nausea is well controlled. PMH: SCC, acute renal failure, hydronephrosis PSH: breast augmentation procedure Social: They deny alcohol, tobacco, and recreational drug use. The patient lives at home with parents. 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 She wanted to live with her parents during this time. No difficulty with transportation access. FamHx: Their history is otherwise negative for a history of breast, ovarian, uterine, colon, pancreatic, and GI cancer. Objective Vitals: BP: 115/88 HR: 122: SpO2: 94% resp: 18 Physical Exam Constitutional: General: She is not in acute distress. Appearance: Normal appearance. She is not toxic-appearing. Comments: Here with her mom and dad, in a wheelchair HENT: Head: Normocephalic. Mouth/Throat: Mouth: Mucous membranes are moist. Pharynx: Oropharynx is clear. Eyes: Extraocular Movements: Extraocular movements intact. Conjunctiva/sclera: Conjunctivae normal. Pupils: Pupils are equal, round, and reactive to light. Cardiovascular: Rate and Rhythm: Normal rate and regular rhythm. Heart sounds: Normal heart sounds. No murmur heard. No friction rub. No gallop. Pulmonary: Effort: Pulmonary effort is normal. Breath sounds: Normal breath sounds. No wheezing or rhonchi. Abdominal: General: Bowel sounds are normal. There is no distension. Palpations: Abdomen is soft. Tenderness: There is no abdominal tenderness. Musculoskeletal: General: Normal range of motion. Cervical back: Normal range of motion. Skin: General: Skin is warm. Neurological: General: No focal deficit present. Mental Status: She is alert and oriented to person, place, and time. Psychiatric: Mood and Affect: Mood normal. Behavior: Behavior normal. Infusion on 01/19/2025 Component Date Value Ref Range Status WBC 01/19/2025 3.0 (L) 4.4 - 11.3 x10*3/uL Final RBC 01/19/2025 3.18 (L) 4.00 - 5.20 x10*6/uL Final Hemoglobin 01/19/2025 9.8 (L) 12.0 - 16.0 g/dL Final Hematocrit 01/19/2025 29.6 (L) 36.0 - 46.0 % Final MCV 01/19/2025 93 80 - 100 fL Final MCH 01/19/2025 30.8 26.0 - 34.0 pg Final MCHC 01/19/2025 33.1 32.0 - 36.0 g/dL Final RDW 01/19/2025 15.3 (H) 11.5 - 14.5 % Final Platelets 01/19/2025 94 (L) 150 - 450 x10*3/uL Final Neutrophils % 01/19/2025 64.2 40.0 - 80.0 % Final Immature Granulocytes %, Automated 01/19/2025 0.3 0.0 - 0.9 % Final Immature Granulocyte Count (IG) includes promyelocytes, myelocytes and metamyelocytes but does not include bands. Percent differential counts (%) should be interpreted in the context of the absolute cell counts (cells/UL). Lymphocytes % 01/19/2025 19.9 13.0 - 44.0 % Final Monocytes % 01/19/2025 14.6 2.0 - 10.0 % Final Eosinophils % 01/19/2025 0.7 0.0 - 6.0 % Final Basophils % 01/19/2025 0.3 0.0 - 2.0 % Final Neutrophils Absolute 01/19/2025 1.93 1.20 - 7.70 x10*3/uL Final Percent differential counts (%) should be interpreted in the context of the absolute cell counts (cells/uL). Immature Granulocytes Absolute, Au* 01/19/2025 0.01 0.00 - 0.70 x10*3/uL Final Lymphocytes Absolute 01/19/2025 0.60 (L) 1.20 - 4.80 x10*3/uL Final Monocytes Absolute 01/19/2025 0.44 0.10 - 1.00 x10*3/uL Final Eosinophils Absolute 01/19/2025 0.02 0.00 - 0.70 x10*3/uL Final Basophils Absolute 01/19/2025 0.01 0.00 - 0.10 x10*3/uL Final Office Visit on 01/17/2025 Component Date Value Ref Range Status POC Color, Urine 01/17/2025 Yellow Straw, Yellow, Light-Yellow Final POC Appearance, Urine 01/17/2025 Clear Clear Final POC Glucose, Urine 01/17/2025 NEGATIVE NEGATIVE mg/dl Final POC Bilirubin, Urine 01/17/2025 NEGATIVE NEGATIVE Final POC Ketones, Urine 01/17/2025 NEGATIVE NEGATIVE mg/dl Final POC Specific [place], Urine 01/17/2025 1.025 1.005 - 1.035 Final POC Blood, Urine 01/17/2025 MODERATE (2+) (A) NEGATIVE Final POC PH, Urine 01/17/2025 6.0 No Reference Range Established PH Final POC Protein, Urine 01/17/2025 >=300 (3+) (A) NEGATIVE mg/dl Final POC Urobilinogen, Urine 01/17/2025 1.0 0.2, 1.0 EU/DL Final Poc Nitrite, Urine 01/17/2025 NEGATIVE NEGATIVE Final POC Leukocytes, Urine 01/17/2025 SMALL (1+) (A) NEGATIVE Final CULTURE, URINE, ROUTINE 01/17/2025 SEE NOTE Final Comment: CULTURE, URINE, ROUTINE Micro Number: [id number] Test Status: Final Specimen Source: Urine Specimen Quality: Adequate Result: Mixed genital paula isolated. These superficial bacteria are not indicative of a urinary tract infection. No further organism identification is warranted on this specimen. If clinically indicated, recollect clean-catch, mid-stream urine and transfer immediately to Urine Culture Transport Tube. Infusion on 01/16/2025 Component Date Value Ref Range Status Cancer AG 125 01/16/2025 135.3 (H) 0.0 - 30.2 U/mL Final WBC 01/16/2025 3.3 (L) 4.4 - 11.3 x10*3/uL Final RBC 01/16/2025 3.15 (L) 4.00 - 5.20 x10*6/uL Final Hemoglobin 01/16/2025 9.9 (L) 12.0 - 16.0 g/dL Final Hematocrit 01/16/2025 29.6 (L) 36.0 - 46.0 % Final MCV 01/16/2025 94 80 - 100 fL Final MCH 01/16/2025 31.4 26.0 - 34.0 pg Final MCHC 01/16/2025 33.4 32.0 - 36.0 g/dL Final RDW 01/16/2025 15.3 (H) 11.5 - 14.5 % Final Platelets 01/16/2025 53 (L) 150 - 450 x10*3/uL Final Platelet count verified by smear review Neutrophils % 01/16/2025 64.3 40.0 - 80.0 % Final Immature Granulocytes %, Automated 01/16/2025 0.6 0.0 - 0.9 % Final Immature Granulocyte Count (IG) includes promyelocytes, myelocytes and metamyelocytes but does not include bands. Percent differential counts (%) should be interpreted in the context of the absolute cell counts (cells/UL). Lymphocytes % 01/16/2025 24.8 13.0 - 44.0 % Final Monocytes % 01/16/2025 9.7 2.0 - 10.0 % Final Eosinophils % 01/16/2025 0.6 0.0 - 6.0 % Final Basophils % 01/16/2025 0.0 0.0 - 2.0 % Final Neutrophils Absolute 01/16/2025 2.13 1.20 - 7.70 x10*3/uL Final Percent differential counts (%) should be interpreted in the context of the absolute cell counts (cells/uL). Immature Granulocytes Absolute, Au* 01/16/2025 0.02 0.00 - 0.70 x10*3/uL Final Lymphocytes Absolute 01/16/2025 0.82 (L) 1.20 - 4.80 x10*3/uL Final Monocytes Absolute 01/16/2025 0.32 0.10 - 1.00 x10*3/uL Final Eosinophils Absolute 01/16/2025 0.02 0.00 - 0.70 x10*3/uL Final Basophils Absolute 01/16/2025 0.00 0.00 - 0.10 x10*3/uL Final Automated WBC differential has been confirmed by manual smear review Glucose 01/16/2025 82 74 - 99 mg/dL Final Sodium 01/16/2025 137 136 - 145 mmol/L Final Potassium 01/16/2025 3.3 (L) 3.5 - 5.3 mmol/L Final Chloride 01/16/2025 101 98 - 107 mmol/L Final Bicarbonate 01/16/2025 25 21 - 32 mmol/L Final Anion Gap 01/16/2025 14 10 - 20 mmol/L Final Urea Nitrogen 01/16/2025 8 6 - 23 mg/dL Final Creatinine 01/16/2025 0.63 0.50 - 1.05 mg/dL Final eGFR 01/16/2025 >90 >60 mL/min/1.73m*2 Final Calculations of estimated GFR are performed using the 2020 CKD-EPI Study Refit equation without the race variable for the IDMS-Traceable creatinine methods. https://jasn.asnjournals.org/con tent/early//ASN.433495 2168 Calcium 01/16/2025 6.0 (L) 8.6 - 10.3 mg/dL Final Albumin 01/16/2025 2.6 (L) 3.4 - 5.0 g/dL Final Alkaline Phosphatase 01/16/2025 127 (H) 33 - 110 U/L Final Total Protein 01/16/2025 5.5 (L) 6.4 - 8.2 g/dL Final AST 01/16/2025 12 9 - 39 U/L Final Bilirubin, Total 01/16/2025 0.4 0.0 - 1.2 mg/dL Final ALT 01/16/2025 3 (L) 7 - 45 U/L Final Patients treated with Sulfasalazine may generate falsely decreased results for ALT. RBC Morphology 01/16/2025 No significant RBC morphology present Final Oncology History Overview Note - Patient was diagnosed with SCC in 2023. - Underwent chemo/immuno RT - Recurrence in April of 2024. Subsequent CT showed mets to peritoneal tissue, accompanied by severe ascites. 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 # Cervical cancer, recurrent - S/p ChemoRT with A18 regimen, recurrence in 04/2024 with RT to ela hepatis - Currently being treated with carbo/taxol/avastin - Will be due for cycle 5 on 01/10/25, delayed given anemia and thrombocytopenia requiring transfusion - Has been tracking signatera with prior oncologist, will continue to trend - Does not tolerate magnesium - Continues to be thrombocytopenic, will recheck today, also discussed dose reduction to carbo AUC of 4 - Oxycodone 5 mg rx sent, patient declines Narcan # Proteinuria - 2+ on last urinalysis - Will need a 24h urine protein prior to next cycle (pending) # Chemo-induced nausea - Managed with weekly Aloxi # CIPN - Mild, not currently medicated for this # Hydronephrosis - stent and nephrostomy tube for hydronephrosis and malignant ureteral obstruction - nephrostomy tube was taken out as per request from the patient - seeing urology Scribe Attestation: I, Sandie Torres, am scribing for virtually, and in the presence of Charan Jenkins MD, MS on 01/19/2025 at 8:11 PM. Provider Attestation - Scribe documentation All medical record entries made by the Scribe were at my direction and personally dictated by me. I have reviewed the chart and agree that the record accurately reflects my personal performance of the history, physical exam, discussion and plan. Charan Jenkins MD, MS documented in this encounter [facility] Work Phone: 01-17-2025 History of Present illness Narrative Chief complaint: Follow-up (Urethral stent removal) Referring physician: Charan Jenkins MD, MS SUBJECTIVE: HPI: Jessica Mensah is a 34 y.o. female with a history of hydronephrosis, exocervical cancer who presents for initial evaluation of stent exchange vs removal. 01/17/25 - She is here to discuss possible stent removal. She recently moved back from [place], and has a history of cervical cancer, which is now resolved. In October, following an increase in her Cr level to 8, she underwent placement of bilateral ureteral stents. When her creatinine did not improve, the stents were checked and found to be in the correct position. The decision was then made to place a right nephrostomy tube, which later began to leak and was ultimately removed in Nov under fluoroscopy with IR. Currently, the patient is undergoing carboplatin chemotherapy for a peritoneal mass and radiation therapy. Her previous urinary sxs have included frequency, burning, and UUI, and she has experienced fever with past UTIs. Has ongoing significant urinary discomfort from the stents. She would like to have them removed. Reviewed imaging from [place]. 10/20/24 CT bl hydro without clear transition point, no stones. 11/01 CT interval bl stents, resolution of L hydro, persistent R hydro. 11/03 IR R PCN placed. 11/05 CT Malpositioned R PCN 11/05 IR replaced R PCN 12/06 IR R PCN removed, good drainage of contrast down to bladder along stent Medical history: has no past medical history on file. Surgical history: has no past surgical history on file. Family history: family history is not on file. Social history: reports that she has never smoked. She has never used smokeless tobacco. She reports that she does not drink alcohol and does not use drugs. Medications: Current Outpatient Medications Medication Instructions dexAMETHasone (DECADRON) 8 mg, oral, Daily, Start the day after chemotherapy. LORazepam (ATIVAN) 0.5 mg, Every 6 hours PRN oxyCODONE (OXY-IR) 5 mg, oral, Every 6 hours PRN pantoprazole (PROTONIX) 40 mg, oral, Daily before breakfast, Do not crush, chew, or split. sulfamethoxazole-trimethoprim (Bactrim DS) 800-160 mg tablet 1 tablet, oral, 2 times daily Allergies: RX Allergies[1] ROS: 14-point review of systems negative except as noted above. OBJECTIVE: Visit Vitals BP 109/79 Pulse (!) 122 Temp 37.1 C (98.7 F) Body mass index is 18.6 kg/m . Physical exam General: No acute distress HEENT: EOMI CV: Regular rate Pulm: Nonlabored respirations Abd: Soft, non-distended : No suprapubic or CVA tenderness MSK: No contractures Neuro: Motor intact Psych: Appropriate affect Labs: Lab Results Component Value Date WBC 3.3 (L) 01/16/2025 HGB 9.9 (L) 01/16/2025 HCT 29.6 (L) 01/16/2025 PLT 53 (L) 01/16/2025 ALT 3 (L) 01/16/2025 AST 12 01/16/2025 NA 137 01/16/2025 K 3.3 (L) 01/16/2025 CL 101 01/16/2025 CREATININE 0.63 01/16/2025 BUN 8 01/16/2025 CO2 25 01/16/2025 No results found for: URINECULTURE No results found for: PSA Imaging: All imaging discussed in HPI was independently reviewed. ASSESSMENT: Hydronephrosis Discussed management of ureteral stents at length. Safest option would be to remove under anesthesia and perform retrograde pyelography in same setting to assess for ureteral obstruction. Alternatively can remove in office via flexible cystoscopy and monitor for signs/symptoms of obstruction. Patient strongly prefers the latter which is reasonable. Stents are causing significant discomfort. Discussed risk of sepsis, recurrent obstruction with removal, which she understands and wishes to proceed. Will check Ucx and rx abx ppx to minimize risk. PLAN: First avail cysto stent removal Ucx Start Bactrim 800-160 mg BID x 3 days Follow-up as above Problem List Items Addressed This Visit Genitourinary and Reproductive Other hydronephrosis Relevant Orders POCT UA Automated manually resulted (Completed) Follow Up In Urology Other Visit Diagnoses Hydronephrosis due to obstruction of ureter - Primary Relevant Medications sulfamethoxazole-trimethoprim (Bactrim DS) 800-160 mg tablet Other Relevant Orders Urine Culture Follow Up In Urology Rajeev Bolanos I, Charles Aleman attest that this documentation has been prepared under the direction and in the presence of Dr. Carmina Dumont I examined the patient and agree with the assessment and plan above. Carmina Dumont MD [1] No Known Allergies documented in this encounter [facility] Work Phone: 01-11-2025 Discharge summary Note Date/Time January 11, 2025 4:15pm [facility] Medical Records Department [address] [place] [address] Emergency Department Summary 01/11/25 MR#: [id number] Acct: [id number] Name: JESSICA ALVARADO Rep #:[id number] : 1990 34 From: Nathen Piper MD PCP: Care Physician,No Primary Status :REG ER Location: ED HPI History of Present Illness Chief Complaint: Abn Labs Detail of Chief Complaint: Hemoglobin 4.4 platelet count 14,000 Informant: patient Onset/Context/Timing Onset: Yesterday (Blood work yesterday at facility) Context: - (Unknown) Timing: Continuous Quality: Anemia and thrombocytopenia Location: Hematologic, due to chemo for cervical cancer Current Severity: Mild Maximum Severity: Moderate (Dyspnea on exertion) Worsened by: Activity Relieved by: Nothing Associated Symptoms Associated Symptoms: Dyspnea on exertion Narrative Narrative: Patient is a 34-year-old woman. She receives her cancer treatment through . She had blood work yesterday prior to chemo. She is scheduled for chemo tomorrow. Her hemoglobin was 4.4 and her platelet count was 14,000. She deniesbleeding of her gums, hematuria, black or maroon stool. She denies bruising easily. She has not noted any red dots on her lower extremity. She denies fever, chills night sweats. She denies any upper respiratory tract infectious symptoms. She denies cardiac symptoms. Her only respiratory symptomis dyspnea on exertion. Prior similar symptoms: Yes (Patient has required transfusions between treatments.) Recent Illness/Hospitalization: Yes PFSH PFS Medical History Anxiety Depression GERD (gastroesophageal reflux disease) Non-smoker Home Medications ?Medication ?Instructions ?Recorded ?Last Taken ?Type dexamethasone 4 mg tablet mg PO 01/11/25 Unknown Histo ry oxycodone 5 mg capsule 5 mg PO Q6H PRN PRN severe p ain 01/11/25 Unknown History potassium chloride 20 mEq oral 20 meq PO BID #30 ea Unknown Rx packet Allergy/AdvReac Type Severity Reaction Status Date / Time No Known Allergies Allergy Verified 01/11/25 11:01 Social History Smoking Status: Never smoker ROS ROS ED Constitutional Constitutional ED: Denies chills, fever(s), subjective or sweats Eyes Eyes: Denies blurry vision or change in vision Cardiovascular Cardiovascular: Denies chest pain, orthopnea, palpitations, paroxysmal nocturnaldyspnea or racing heartbeat Respiratory/Chest Respiratory/Chest: Reports dyspnea on exertion; Denies cough, dyspnea, orthopneaor paroxysmal nocturnal dyspnea Gastrointestinal Gastrointestinal: Denies abdominal pain, melena or vomiting Genitourinary Genitourinary ED: Denies hematuria Neurologic Neurologic: Denies weakness Hematologic/Lymphatic Hematologic/Lymphatic: Denies easy bruising EXAM Physical Exam Const Vital Signs: 01/11/25 10:58 01/11/25 11:51 01/11/25 13:47 Temperature 98.5 F 98.7 F Temperature Source Oral Oral Pulse Rate 123 H 108 H Respiratory Rate 16 18 Respiratory Effort Normal Short of Breath Respiratory Pattern Normal Blood Pressure 119/104 H 95/75 Blood Pressure Mean 109 81 Blood Pressure Source Blood Pressure Position Blood Pressure Location Pulse Ox 100 99 Oxygen Delivery Method Room Air 01/11/25 14:38 01/11/25 14:52 01/11/25 14:53 Temperature 99.1 F 98.6 F 99.4 F H Temperature Source Oral Oral Oral Pulse Rate 108 H 107 H 107 H Respiratory Rate 20 H 20 H 20 H Respiratory Effort Respiratory Pattern Blood Pressure 92/74 94/74 88/63 L Blood Pressure Mean 80 80 71 Blood Pressure Source Monitor Monitor Monitor Blood Pressure Position Semi-Fowlers Semi-Fowlers Right Lateral Blood Pressure Location Left Arm Right Arm Pulse Ox Oxygen Delivery Method Room Air Room Air Room Air Positive well nourished and well developed Constitutional Narrative: Patient is tachycardic with a rate of 123. Patient is very pale. General Appearance ED: well developed and pallor HEENT HEENT Narrative: Has atraumatic, cephalic. Ears normal. Nares patent. She has piercings of hernose Eyes PERRL and EOMs intact bilaterally General Eye ED: Yes pale conjunctiva; Negative for scleral icterus Neck no lymphadenopathy and no JVD Resp normal respiratory effort and clear to auscultation bilaterally Cardio regular rhythm, S1 normal heart sound, S2 normal heart sound and no murmurs Rate: tachycardic GI normal to inspection, nondistended, normoactive bowel sounds, non-tender, non-distended and no masses; Negative for hepatosplenomegaly Extremity Extremity Narrative: Patient has a few petechiae lower EXTR. Neuro oriented x3 and CN's II-XII intact bilaterally Sensorium / Orientation: alert Psych mental status grossly normal Skin no rashes or lesions noted and no wounds General Skin Exam: pallor; Negative for jaundice MDM MDM MDM Narrative Medical decision making narrative: Clinically patient has a hemoglobin less than 5 since there is no erythema crease of the palm. Will type and cross for 3 units of blood and order platelets. Lab Data Attestation: I reviewed the patient's lab results. Lab results narrative: I was informed that her hemoglobin is 4. White count is 3.4. Platelet count was low as well. When calcium was corrected for hypoalbuminemia calcium was 7.8which is slightly below lower end of normal. Will obtain an ionized calcium. Labs: Laboratory Results - last 24 hr 01/11/25 01/11/25 11:30 13:14 WBC 3.4 L RBC 1.27 L Hgb 4.0 L* Hct 12.0 L MCV 94.5 MCH 31.5 MCHC 33.3 RDW Std Deviation 54.8 H RDW Coeff of Sally 15.9 H Plt Count 15 L* MPV 11.2 Differential Comment COMMENT Sodium 135 Potassium 3.0 L Chloride 99 Carbon Dioxide 24.1 Anion Gap 12 BUN 8 Creatinine 0.93 Estim Creat Clear Calc 66.64 Est GFR (MDRD) Non-Af 82 BUN/Creatinine Ratio 9.0 L Glucose 86 Calcium 5.8 L* Ionized Calcium 0.90 L Total Bilirubin 0.23 AST 14 ALT < 5 Alkaline Phosphatase 84 Total Protein 5.3 L Albumin 2.5 L Globulin 2.8 Albumin/Globulin Ratio 0.9 Blood Type O POSITIVE Antibody Screen NEGATIVE Crossmatch See Detail Patient states she has a history of hypokalemia and hypocalcemia. Patient was treated with p.o. potassium. Ionized calcium is still pending at as of 1559. Treatment and Re-Evaluation :: The afternoon physician was made aware of patient. He should only have to intervene if patient has a transfusion reaction. Discharge Plan Triage Chief Complaint: Abn Labs ED Provider: Nathen Piper Dx/Rx/DC Orders Clinical Impression: Symptomatic anemia, Signs and symptoms of anemia, Thrombocytopenia, Petechiae, Hx of cervical cancer, Sinus tachycardia seen on property assessment monitor, Hypocalcemia, Hypokalemia Instructions: Blood Transfusion Adult Dc Prescriptions: New potassium chloride 20 mEq packet 20 meq PO BID Qty: 30 1RF No Action dexamethasone 4 mg tablet PO oxycodone 5 mg capsule 5 mg PO Q6H PRN PRN (Reason: severe pain) Primary Care Provider: Care Physician,No Primary Referrals: Care Physician,No Primary [Primary Care Provider, Medical] Print Language: Trinidadian Disposition Disposition: Home, Self Care What to do if you have Problems For any increased pain, shortness of breath, bleeding, nausea or vomiting, chestpain, or any unexpected problems, contact your Primary Care Provider. Call [facility] ([phone]) or report to the closest Emergency Room. Call 911 if necessary. 01/11/25 1615 <Electronically signed by Nathen Piper MD> Cosigner Signature (if applicable): CC: No Primary Care Physician ~ Signed [facility] Work Phone: [phone]) 199-845110-15-2025 Discharge summary [facility] Medical Records Department [address] [place] [address] Emergency Department Summary 01/11/25 MR#: [id number] Acct: [id number] Name: JESSICA ALVARADO Rep #:[id number] : 1990 34 From: Nathen Piper MD PCP: Care Physician,No Primary Status :REG ER Location: ED HPI History of Present Illness Chief Complaint: Abn Labs Detail of Chief Complaint: Hemoglobin 4.4 platelet count 14,000 Informant: patient Onset/Context/Timing Onset: Yesterday (Blood work yesterday at facility) Context: - (Unknown) Timing: Continuous Quality: Anemia and thrombocytopenia Location: Hematologic, due to chemo for cervical cancer Current Severity: Mild Maximum Severity: Moderate (Dyspnea on exertion) Worsened by: Activity Relieved by: Nothing Associated Symptoms Associated Symptoms: Dyspnea on exertion Narrative Narrative: Patient is a 34-year-old woman. She receives her cancer treatment through . She had blood work yesterday prior to chemo. She is scheduled for chemo tomorrow. Her hemoglobin was 4.4 and her plateletcount was 14,000. She deniesbleeding of her gums, hematuria, black or maroon stool. She denies bruis ing easily. She has not noted any red dots on her lower extremity. She denies fever, chills night sweats. She denies any upper respiratory tract infectious symptoms. She denies cardiac symptoms. Her only respiratory symptomis dyspnea on exertion. Prior similar symptoms: Yes (Patient has required transfusions between treatments.) Recent Illness/Hospitalization: Yes PFSH PFSH Medical History Anxiety Depression GERD (gastroesophageal reflux disease) Non-smoker Home Medications ?Medication ?Instructions ?Recorded ?Last Taken ?Type dexamethasone 4 mg tablet mg PO 01/11/25 Unknown Histo ry oxycodone 5 mg capsule 5 mg PO Q6H PRN PRN severe p ain 01/11/25 Unknown History potassium chloride 20 mEq oral 20 meq PO BID #30 ea Unknown Rx packet Allergy/AdvReac Type Severity Reaction Status Date / Time No Known Allergies Allergy Verified 01/11/25 11:01 Social History Smoking Status: Never smoker ROS ROS ED Constitutional Constitutional ED: Denies chills, fever(s), subjective or sweats Eyes Eyes: Denies blurry vision or change in vision Cardiovascular Cardiovascular: Denies chest pain, orthopnea, palpitations, paroxysmal nocturnaldyspnea or racing heartbeat Respiratory/Chest Respiratory/Chest: Reports dyspnea on exertion; Denies cough, dyspnea, orthopneaor paroxysmal nocturnal dyspnea Gastrointestinal Gastrointestinal: Denies abdominal pain, melena or vomiting Genitourinary Genitourinary ED: Denies hematuria Neurologic Neurologic: Denies weakness Hematologic/Lymphatic Hematologic/Lymphatic: Denies easy bruising EXAM Physical Exam Const Vital Signs: 01/11/25 10:58 01/11/25 11:51 01/11/25 13:47 Temperature 98.5 F 98.7 F Temperature Source Oral Oral Pulse Rate 123 H 108 H Respiratory Rate 16 18 Respiratory Effort Normal Short of Breath Respiratory Pattern Normal Blood Pressure 119/104 H 95/75 Blood Pressure Mean 109 81 Blood Pressure Source Blood Pressure Position Blood Pressure Location Pulse Ox 100 99 Oxygen Delivery Method Room Air 01/11/25 14:38 01/11/25 14:52 01/11/25 14:53 Temperature 99.1 F 98.6 F 99.4 F H Temperature Source Oral Oral Oral Pulse Rate 108 H 107 H 107 H Respiratory Rate 20 H 20 H 20 H Respiratory Effort Respiratory Pattern Blood Pressure 92/74 94/74 88/63 L Blood Pressure Mean 80 80 71 Blood Pressure Source Monitor Monitor Monitor Blood Pressure Position Semi-Fowlers Semi-Fowlers Right Lateral Blood Pressure Location Left Arm Right Arm Pulse Ox Oxygen Delivery Method Room Air Room Air Room Air Positive well nourished and well developed Constitutional Narrative: Patient is tachycardic with a rate of 123. Patient is very pale. General Appearance ED: well developed and pallor HEENT HEENT Narrative: Has atraumatic, cephalic. Ears normal. Nares patent. She has piercings of hernose Eyes PERRL and EOMs intact bilaterally General Eye ED: Yes pale conjunctiva; Negative for scleral icterus Neck no lymphadenopathy and no JVD Resp normal respiratory effort and clear to auscultation bilaterally Cardio regular rhythm, S1 normal heart sound, S2 normal heart sound and no murmurs Rate: tachycardic GI normal to inspection, nondistended, normoactive bowel sounds, non-tender, non- distended and no masses; Negative for hepatosplenomegaly Extremity Extremity Narrative: Patient has a few petechiae lower EXTR. Neuro oriented x3 and CN's II-XII intact bilaterally Sensorium / Orientation: alert Psych mental status grossly normal Skin no rashes or lesions noted and no wounds General Skin Exam: pallor; Negative for jaundice MDM MDM MDM Narrative Medical decision making narrative: Clinically patient has a hemoglobin less than 5 since there is no erythema crease of the palm. Willtype and cross for 3 units of blood and order platelets. Lab Data Attestation: I reviewed the patient's lab results. Lab results narrative: I was informed that her hemoglobin is 4. White count is 3.4. Platelet count was low as well. When calcium was corrected for hypoalbuminemia calcium was 7.8which is slightly below lower end of normal.Will obtain an ionized calcium. Labs: Laboratory Results - last 24 hr 01/11/25 01/11/25 11:30 13:14 WBC 3.4 L RBC 1.27 L Hgb 4.0 L* Hct 12.0 L MCV 94.5 MCH 31.5 MCHC 33.3 RDW Std Deviation 54.8 H RDW Coeff of Sally 15.9 H Plt Count 15 L* MPV 11.2 Differential Comment COMMENT Sodium 135 Potassium 3.0 L Chloride 99 Carbon Dioxide 24.1 Anion Gap 12 BUN 8 Creatinine 0.93 Estim Creat Clear Calc 66.64 Est GFR (MDRD) Non-Af 82 BUN/Creatinine Ratio 9.0 L Glucose 86 Calcium 5.8 L* Ionized Calcium 0.90 L Total Bilirubin 0.23 AST 14 ALT < 5 Alkaline Phosphatase 84 Total Protein 5.3 L Albumin 2.5 L Globulin 2.8 Albumin/Globulin Ratio 0.9 Blood Type O POSITIVE Antibody Screen NEGATIVE Crossmatch See Detail Patient states she has a history of hypokalemia and hypocalcemia. Patient was treated with p.o. potassium. Ionized calcium is still pending at as of 1559. Treatment and Re-Evaluation :: The afternoon physician was made aware of patient. He should only have to intervene if patient has a transfusion reaction. Discharge Plan Triage Chief Complaint: Abn Labs ED Provider: Nathen Piper Dx/Rx/DC Orders Clinical Impression: Symptomatic anemia, Signs and symptoms of anemia, Thrombocytopenia, Petechiae, Hx of cervical cancer, Sinus tachycardia seen on property assessment monitor, Hypocalcemia, Hypokalemia Instructions: Blood Transfusion Adult Dc Prescriptions: New potassium chloride 20 mEq packet 20 meq PO BID Qty: 30 1RF No Action dexamethasone 4 mg tablet PO oxycodone 5 mg capsule 5 mg PO Q6H PRN PRN (Reason: severe pain) Primary Care Provider: Care Physician,No Primary Referrals: Care Physician,No Primary [Primary Care Provider, Medical] Print Language: Trinidadian Disposition Disposition: Home, Self Care What to do if you have Problems For any increased pain, shortness of breath, bleeding, nausea or vomiting, chestpain, or any unexpected problems, contact your Primary Care Provider. Call [facility] ([phone]) or report tothe closest Emergency Room. Call 911 if necessary. 01/11/251614 Cosigner Signature (if applicable): CC: No Primary Care Physician ~ Signed [facility]09-25-2025 History of Present illness Narrative* Charan Jenkins MD, MS - 12/22/2024 1:00 PM EDT Patient ID: Jessica Mensah is a 34 y.o. female. Referring Physician: No referring provider defined for this encounter. Primary Care Provider: No primary care provider on file. Subjective HPI Patient is a 34 y.o. 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 Accompanied by mother. Cancer Care - Patient was diagnosed with SCC in 2023. - Underwent chemo/immuno RT - Recurrence in April of 2024. Subsequent CT showed mets to peritoneal tissue, accompanied by severe ascites. - Received RT to periportal region - 09/2024 started carbo/taxol/avastin She came back home to [place] after cervical cancer recurrence. Deny fever, chills, constipation, diarrhea, vaginal bleeding, abdominal pain. She is able to eat but endorses some loss of appetite. Patient also endorses some moderate neuropathic pain in the fingers and toes. Patient feels that her nausea is well controlled. PMH: SCC, acute renal failure, hydronephrosis PSH: breast augmentation procedure Social: They deny alcohol, tobacco, and recreational drug use. The patient lives at home with parents. 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 She wanted to live with her parents during this time. No difficulty with transportation access. FamHx: Their history is otherwise negative for a history of breast, ovarian, uterine, colon, pancreatic, and GI cancer. Objective Vitals: BP: 115/88 HR: 122: SpO2: 94% resp: 18 Physical Exam Constitutional: General: She is not in acute distress. Appearance: Normal appearance. She is not toxic-appearing. Comments: Here with her mom, in a wheelchair HENT: Head: Normocephalic. Mouth/Throat: Mouth: Mucous membranes are moist. Pharynx: Oropharynx is clear. Eyes: Extraocular Movements: Extraocular movements intact. Conjunctiva/sclera: Conjunctivae normal. Pupils: Pupils are equal, round, and reactive to light. Cardiovascular: Rate and Rhythm: Normal rate and regular rhythm. Heart sounds: Normal heart sounds. No murmur heard. No friction rub. No gallop. Pulmonary: Effort: Pulmonary effort is normal. Breath sounds: Normal breath sounds. No wheezing or rhonchi. Abdominal: General: Bowel sounds are normal. There is no distension. Palpations: Abdomen is soft. Tenderness: There is no abdominal tenderness. Musculoskeletal: General: Normal range of motion. Cervical back: Normal range of motion. Skin: General: Skin is warm. Neurological: General: No focal deficit present. Mental Status: She is alert and oriented to person, place, and time. Psychiatric: Mood and Affect: Mood normal. Behavior: Behavior normal. Assessment/Plan Patient is a 34 y.o. with a history of recurrent squamous cell carcinoma of the cervix coming in [facility]. Accompanied by mother. # Cervical cancer, recurrent - S/p ChemoRT with A18 regimen, recurrence in 04/2024 with RT to ela hepatis - Currently being treated with carbo/taxol/avastin - consents signed today, will be due for cycle 5 on 01/10/25 - Has been tracking signatera with prior oncologist, will continue to trend - Does not tolerate magnesium # Proteinuria - 2+ on last urinalysis - Will need a 24h urine protein prior to next cycle # Chemo-induced nausea - Managed with weekly Aloxi, next 12/27/24 # CIPN - Mild, not currently medicated for this # Hydronephrosis - stent and nephrostomy tube for hydronephrosis and malignant ureteral obstruction - nephrostomy tube was taken out as per request from the patient - need urology referral for stent removal Plan for seeing back in 2.5 weeks for chemotherapy cycle. I, or a resident under my supervision, was present with the medical student who participated in thedocumentation of this note. I have personally seen and examined the patient and performed the medical decision-making components. I have reviewed the medical student documentation and/or resident documentation and verified the findings in the note as written with additions or exceptions as stated in the body of the note. 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 documented in this encounter [facility] Work Phone: [phone] note* Diagnosis Hydronephrosis due to obstruction of ureter- Primary Other hydronephrosis Hydronephrosis due to obstruction of ureter [facility] [facility] Work Phone: [phone] noteNo assessment information available [facility] Work Phone: Evaluation note* Diagnosis Hydronephrosis due to obstruction of ureter documented in this encounter [facility] Work Phone: [phone] note* Diagnosis Anemia, unspecified type- Primary Thrombocytopenia Unspecified thrombocytopenia documented in this encounter [facility] Work Phone: [phone] note* Diagnosis Malignant neoplasm of exocervix (Multi)- Primary Malignant neoplasm of exocervix Chemotherapy-induced nausea Encounter for antineoplastic chemotherapy 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 Thrombocytopenia Unspecified thrombocytopenia documented in this encounter [facility] Work Phone: Hospital Discharge instructions No data available for this section [facility] Progress note No data available for this section [facility] Reason for referral (narrative)No reason for referral [facility]: Summary Purpose Family History No Family History Records Found Advance Directives No Advanced Directives Records Found Advance Directive Response Recorded Date/ Time Do you have a Healthcare Power of Maternal Child Nurse? No January 11, 2025 11:51am Chief Complaint and Reason for Visit Chief Complaint Admit Date ABN LAB January 11, 2025 1 0:57am Additional Source Comments Reason for Visit (unrecogniz ed section and content) Reason Comments New Patient Visit Reason Comments Follow-up Specialty Diagnoses / Procedures Referred By Kvng mendieta Referred To Contact Diagnoses Malignant neoplasm of exocervix (Multi) [place] [address] [facility] [address] [place] [address] Phone: tel: fax: [place] [address] [facility] [address] [place] [id number] Phone: tel: fax: Referral ID Status Reason Start Date Expiration Date V isits Requested Visits Authorized [id number] Pending Review 10/07/2024 10/07/2025 1 99 Reason Comments Follow-up Urethral stent remov al Specialty Diagnoses / Procedures Referred By Kvng mendieta Referred To Contact Urology Diagnoses Malignant neoplasm of exocervix (Multi) [place] [address] [facility] [address] [place] [id number] Phone: tel: fax: Referral ID Status Reason Start Date Expiration Date Visits Requested Visits Authorized [id number] Authorized Specialty Services Required 12/22/2024 12/22/2025 1 1 Reason Comments Follow-up Stent removal Specialty Diagnoses / Procedures Referred By Kvng mendieta Referred To Contact Urology Diagnoses Stent removal Procedures UROLOGY CYSTOSCOPY [address] [address] Phone: tel: fax: Carmina Dumont MD [address] [place] [address], [address] [address] Phone: tel: fax: Referral ID Status Reason Start Date Expiration Date V isits Requested Visits Authorized [id number] Authorized 01/24/2025 01/24/2026 1 1 Reason Comments ABNORMAL LABS Care Teams (unrecognized sec tion and content) Neon Light Installer Relationship Specialty Start Date [place] [address] [place] [address] Consulting Physician Obstetrics and Gynecology 12/22/24 Neon Light Installer Relationship Specialty Start Date End Date Generic Provider, [place] [address] PCP - General Head Filter Press Tender 01/03/25 [place] [address] [place] [address] Consulting Physician Obstetrics and Gynecology 12/22/24 Bel Beal LISW-S [place] Sheriff'S Officer 12/27/24 [place] [address] [place] [address] Medical Oncologist Obstetrics and Gynecology 01/16/25 Neon Light Installer Relationship Specialty Start Date End Date Generic Provider, No [place] [address] PCP - General Head Filter Press Tender 01/03/25 Char[place] [address] [place] [address] Consulting Physician Obstetrics and Gynecology 12/22/24 Bel Beal LISW-S [place] Sheriff'S Officer 12/27/24 [place] [address] [place] [address] Medical Oncologist Obstetrics and Gynecology 01/16/25 Team Status: Active Member Role/Relationship Status Dates No Primary Care Physician Primary care physician Activ e Team Status: Inactive Member Role/Relationship Status Dates Dr. Nathen Piper MD Attending physician Active St art: January 11, 2025 End: January 11, 2025 Dr. Nathen Piper MD Emergency Department Physician Active Start: January 11, 2025 End: January 11, 2025 No Primary Care Physician Primary care physician Activ e Start: January 11, 2025 End: January 11, 2025 Neon Light Installer Relationship Specialty Start Date End Date Generic Provider, No [place] [address] PCP - General Head Filter Press Tender 01/03/25 [place] [address] [place] [address] Consulting Physician Obstetrics and Gynecology 12/22/24 Bel Beal, HAND GLASS CUTTER-S [place] Sheriff'S Officer 12/27/24 [place] [address] [place] [address] Medical Oncologist Obstetrics and Gynecology 01/16/25 Neon Light Installer Relationship Specialty Start Date End Date Generic Provider, No [place] [address] PCP - General Head Filter Press Tender 01/03/25 Char[place] [address] [place] [address] Consulting Physician Obstetrics and Gynecology 12/22/24 Bel Beal, HAND GLASS CUTTER-S [place] Sheriff'S Officer 12/27/24 [place] [address] [place] [address] Medical Oncologist Obstetrics and Gynecology 01/16/25 Maxine Gloria, [facility] [place] Sheriff'S Officer 02/03/25 02/03/25 Neon Light Installer Relationship Specialty Start Date End Date Generic Provider, No [place] [address] PCP - General Head Filter Press Tender 01/03/25 Charan [place] [address] [place] [address] Consulting Physician Obstetrics and Gynecology 12/22/24 Bel Beal, HAND GLASS CUTTER-S [place] Sheriff'S Officer 12/27/24 [place] [address] [place] [address] Medical Oncologist Obstetrics and Gynecology 01/16/25 INFORMATION SOURCE (unrecogn ized section and content) DATE CREATED AUTHOR 01/20/2025 [facility] DATE CREATED AUTHOR AUTHOR'S ORGANIZ ATION 01/21/2025 [facility] DATE CREATED AUTHOR AUTHOR'S ORGANIZ ATION 01/31/2025 [facility] DATE CREATED AUTHOR AUTHOR'S ORGANIZ ATION 02/03/2025 [facility] DATE CREATED AUTHOR AUTHOR'S ORGANIZ ATION 02/08/2025 [facility] DATE CREATED AUTHOR AUTHOR'S ORGANIZ ATION 02/08/2025 [facility] DATE CREATED AUTHOR AUTHOR'S ORGANIZ ATION 02/09/2025 [facility] Goals (unrecognized section and content) Goals may be documented in a n alternate section Scheduled Active and Recently Administ ered Medications (unrecognized section and content) Medication Order 02/01/2025 02/02/2025 02/03/2025 acetaminophen (Tylenol) tablet 650 mg (COMPLETED) 650 mg, oral, Once, On Thu02/03/25 at 1125, For 1 dose, If ordered PRN for pain, nurse is permitted to administer this medication for higher pain scores based on patient preference? Yes 1235 (Given - Provid er: Anjana Jensen RN) diphenhydrAMINE (BENADryl) injection 25 mg (COMPLETED) 25 mg, intravenous, Once, On Thu02/03/25 at 1125, For 1 dose, If giving IV push, max rate of 25 mg/min. 1235 (Given - Provid er: Anjana Jensen RN) heparin flush 100 unit/mL syringe 500 Units (COMPLETED) 500 Units (5 mL), intravenous, Once, On Thu02/03/25 at 1905, For 1 dose 1905 (Given - Provid er: Anjana Jensen RN)1910 (Due) magnesium sulfate 2 g in sterile water for injection 50 mL (COMPLETED) 2 g, intravenous, at 25 mL/hr, Administer over 2 Hours, Once, On Thu02/03/25 at 1335, For 1 dose 1405 (New Bag - Prov ider: Anjana Jensen RN)1611 (Stopped - Provider: Anjana Jensen RN) potassium chloride (Klor-Con) packet 40 mEq (COMPLETED) 40 mEq, oral, Once, On Thu02/03/25 at 1205, For 1 dose, Dissolve each packet in 4 ounces of water = 5 mEq per 1 oz fluid. 1551 (Given - Provid er: Kathy Bentley RN) potassium chloride 20 mEq in sterile water for injection 100 mL (COMPLETED) 20 mEq, intravenous, at 50 mL/hr, Administer over 2 Hours, Every 2 hours, First dose on Thu02/03/25 at 1205, For 2 doses, Total dose is 40 mEq via peripheral line. 1234 (New Bag - Prov ider: Anjana Jensen RN)1426 (Stopped - Provider: Anjana Jensen RN)1551 (New Bag - Provider: Kathy Bentley RN)1754 (Stopped - Provider: Kathy Bentley RN) FOR RECORDS PERTAINING TO PATIENTS WHO ARE OR HAVE BEEN ENROLLED IN A CHEMICAL DEPENDENCY/SUBSTANCEABUSE PROGRAM, SOME INFORMATION MAY BE OMITTED. This clinical summary was aggregated from multiple sources. Caution should be exercised in using it in the provision of clinical care. This summary normalizes information from multiple sources, and as a consequence, information in this document may materially change the coding, format and clinical context of patient data. In addition, data may be omitted in some cases. CLINICAL DECISIONS SHOULD BE BASED ON THE PRIMARY CLINICAL RECORDS. [facility]. provides no warranty or guarantee of the accuracy or completeness of information in this document.
[2025-02-19] MEDS: Magnesium Sulfate 2 GM in Dextrose 5%-Water (100mL Bag) 100 ML IV (10:35)
[2025-02-19] MEDS: Piperacil/Tazobactam 3.375 GM in 0.9% Normal Saline (50mL MB+) 50 ML IV (12:14)
[2025-02-19 12:34] LABS: Mucous, Urine 0 SEEN /hpf (<or=2+); Squamous Epithelial Cells - UA 0 SEEN /hpf (5-10)
[2025-02-19] MEDS: Vancomycin HCl 1,250 MG in 0.9% Normal Saline (250mL Bag) 250 ML 167 MG IV (12:57)
[2025-02-19 13:12] LABS: Color, Urine Yellow (Yellow); Glucose, Dipstick Normal (Normal); Ketone-Dipstick Negative (Negative); Leukocyte Esterase-Dipstick 500 /ul (Negative); Nitrite-Dipstick Positive (Negative); Occult Blood-Urine 250 /ul (Negative); Protein-Dipstick 500 mg/dl (Negative); Specific Gravity, Urine 1.010 (1.002-1.030); Urine Bilirubin Dipstick Negative (Negative)
[2025-02-19 13:22] LABS: Red Blood Cells-Urine 25-50 SEEN /hpf (0-5)
--- NOTE | 2025-02-19 13:42 | PCA ---
THIS US TOOK ACCEPTING INFO FROM . PT GOING TO [facility] BUILD[facility] RM [address] IS [phone]
--- NOTE | 2025-02-19 15:21 | ED.RN ---
THIS RN ATTEMPTED TO CALL REPORT AT 1521, THIS RN WAS TOLD THEY WOULD CALL BACK WHEN ACCEPTING RN WAS FREE.
--- NOTE | 2025-02-21 02:19 | ED.RN ---
Dr. Joseph updated on +prelim blood cultures. NNO at this time.
== END 2025-02-19 15:22 | disposition short-term general hospital (02) ==
LOC: ED 10:17
PROVIDERS: Emergency Provider Surgery; Visit Provider Surgery
DX: J96.01 Acute respiratory failure with hypoxia (principal); D61.818 Other pancytopenia; C53.9 Malignant neoplasm of cervix uteri, unspecified; N17.9 Acute kidney failure, unspecified; E86.0 Dehydration; J90 Pleural effusion, not elsewhere classified; N20.0 Calculus of kidney; R19.00 Intra-abdominal and pelvic swelling, mass and lump, unspecified site; N39.0 Urinary tract infection, site not specified; Z92.21 Personal history of antineoplastic chemotherapy; F41.9 Anxiety disorder, unspecified; K21.9 Gastro-esophageal reflux disease without esophagitis; Z79.899 Other long term (current) drug therapy
CPT/HCPCS: 36591; 51702; 71046; 71250; 74176; 80053; 81001; 82330; 83605; 83735; 85025; 85610; 85730; 87040; 87077; 87086; 87088; 87149; 87186; 93005; 96361; 96365; 96366; 96367; 96368; 96375; 99285; A4216; J0612